=== PATIENT | female | born 1950 | race Caucasian/White ===

== ENCOUNTER → 2016-08-28 | Outpatient (CLI) | payer MEDICARE, MEDICAID ==
[~2016-08-28] MED LIST: LISI40TA PO; OMEP20TA7 PO; SERT100T8 PO; TRAM-42 PO
--- NOTE | 2016-08-30 20:26 | Diagnostic Imaging Report ---
Bilateral screening mammogram. The current study was also evaluated with a Computer Aided Detection (CAD) system. INDICATION: Screening. No current complaints stated on the questionnaire. COMPARISON: 07/25/15. FINDINGS: The breasts are composed of scattered fibroglandular densities. There are occasional benign-appearing calcifications. Allowing for technique and positional differences, no suspicious change is seen. IMPRESSION: No significant change. ACR BI-RADS Category 2: Benign findings. Result letter will be mailed to the patient. Note: At least 10% of breast cancer is not imaged by mammography. Dictated by: Dictated on workstation # [id number]
== END ==
LOC: RAD 14:38
PROVIDERS: ATTEND Nurse Practitioner Community Health
DX: Z12.31 Encounter for screening mammogram for malignant neoplasm of breast (principal)
CPT/HCPCS: 77067

== ENCOUNTER 2016-11-22 09:47 | Outpatient (CLI) | payer MEDICARE, MEDICAID ==
[~2016-11-22] VITALS: Ht 170.2 cm; Wt 98.9 kg
[2016-11-22] MEDS ORDERED: METF500T4 PO (12:18)
[2016-11-22] MEDS ORDERED: PIOG30TA38 PO (12:25)
[2016-11-28] MEDS ORDERED: NITR-65 PO (12:22)
[2016-11-28] MEDS ORDERED: TAMS0.4C98 PO (12:22)
[2016-11-28] MEDS ORDERED: HYDR-3876 PO (12:22)
== END 2016-11-22 12:41 ==
LOC: PREOP 09:47
PROVIDERS: ATTEND Internal Medicine
DX: Z01.818 Encounter for other preprocedural examination (principal); Z86.010 Personal history of colon polyps

== ENCOUNTER 2016-11-23 08:41 | Day surgery (SDC) | payer MEDICARE, MEDICAID ==
[~2016-11-23] VITALS: Ht 170.2 cm; Wt 98.9 kg
[~2016-11-23 08:41] MED LIST changes: +METF500T4 PO; +PIOG30TA38 PO
[2016-11-23] MEDS ORDERED: 1/2 NS IV SOLUTION 1,000 ML IV STA (08:49)
[2016-11-23] MEDS ORDERED: LIDOCAINE JELLY 2% (XYLOCAINE) 5 ML TUBE MM PRN (09:00)
[2016-11-23 09:06] VITALS: BP 118/73
--- NOTE | 2016-11-23 09:57 | Pre-Op Note & Conscious Sedat ---
Pre-Operative Progress Note H&P Reviewed The H&P was reviewed, patient examined and no changes noted. Date H&P Reviewed: Nov 23, 2016 Time H&P Reviewed: 09:57 Conscious Sedation Pre-Proced ASA Class: 2 Airway Mallampati Classification: ([place] appropriate class) I. II. III, IV Lungs Heart ASA score ASA 1: a normal healthy patient ASA 2: a patient with a mild systemic disease (mid diabetes, controlled hypertension, obesity ASA 3: a patient with a severe systemic disease that limits activity (angina , COPD, prior Myocardial infarction) ASA 4: a patient with an incapacitating disease that is a constant threat to life (CHF, renal failure) ASA 5: a moribund patient not expected to survive 24 hrs. (ruptured aneurysm) ASA 6: a declared brain patient whose organs are being harvested. For emergent operations, add the letter E after the classification Grade 2 Sedation Plan: Analgesia, Amnesia, Plan communicated to team members, Discussed options with patient/fam, Discussed risks with patient/fam Note The patient is an appropriate candidate to undergo the planned procedure, sedation, and anesthesia. The patient immediately re-assessed prior to indication. RUSS MENON MD Nov 23, 2016 09:57
[2016-11-23] MEDS ORDERED: MIDAZOLAM 2 MG/2 ML (VERSED) VIAL ONE ×3 (10:16→11:23)
[2016-11-23] MEDS ORDERED: fentaNYL INJECTION 100 MCG/2 ML AMP ONE (10:16)
[2016-11-23] MEDS ORDERED: LIDOCAINE JELLY 2% (XYLOCAINE) 5 ML TUBE ONE (10:17)
[2016-11-23] MEDS: fentaNYL INJECTION 100 MCG/2 ML AMP IVP PRN ×2 (11:05→11:10)
[2016-11-23] MEDS: MIDAZOLAM 2 MG/2 ML (VERSED) VIAL IVP PRN ×3 (11:07→11:25)
[2016-11-23 11:55] VITALS: BP 122/79
[2016-11-23 12:30] VITALS: BP 108/77
[2016-11-23 14:54] VITALS: BP 108/77
[2016-11-24] MEDS ORDERED: HYDR-87 PO (10:13)
[2016-11-24] MEDS ORDERED: TAMS0.4C98 PO (10:13)
[2016-11-24] MEDS ORDERED: ONDA4TAB8 PO (10:13)
[2016-11-24] MEDS ORDERED: NITR-65 PO (10:13)
[2016-11-24] MEDS ORDERED: CIPR-225 PO (10:19)
--- NOTE | 2016-11-24 23:36 | PROCEDURE REPORT ---
PROCEDURE PHYSICIAN: RUSS MENON DATE OF PROCEDURE: 11/23/2016 INDICATION FOR THE PROCEDURE: Diagnostic colonoscopy follow-up of a villous adenoma removal one year ago from the rectosigmoid junction. The patient was placed in left lateral decubitus position. Prior to undergoing colonoscopy, digital rectal evaluation was performed. Anal sphincter tone was normal. The perianal reflex was intact. No abnormalities were noted to digital inspection of the anal canal or distal rectal vault. The colonoscope was then inserted into the rectum and under direct visualization, advanced to cecum. The cecum was identified by identification the ileocecal valve and cecal strap. Photographic documentation was obtained. Careful inspection was made as the colonoscope was withdrawn. FINDINGS: There was no evidence for internal or external hemorrhoids. The rectum was unremarkable. There was no evidence for any remnant of previously cauterized villous adenoma from the rectosigmoid junction. The sigmoid colon and transverse colon were unremarkable. One diminutive polyp was removed from the mid transverse colon approximately 2 x 4 mm in size via hot forceps. There is no significant blood loss. The remainder of the transverse colon, hepatic flexure, ascending colon and cecum were unremarkable. ASSESSMENT: There is no evidence for recurrence of previously noted villous adenoma at the rectosigmoid junction. One diminutive polyp was removed from the transverse colon. This was an otherwise unremarkable colonoscopy to cecum. I would advocate increasing surveillance colonoscopy interval to 3 years. Job ID: [id number] Dictated Date: 11/23/2016 11:49:31 Director [employer] Date: 11/24/2016 23:26:16 / hal
--- OUTSIDE RECORDS SUMMARY | 2016-11-27 06:45 | XMS REPORT ---
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 Active Problem Dysthymic disorder 300.4 Active Problem Diabetes 250.00 Active Problem Other malaise and fatigue 780.79 Active Problem Polyneuropathy 356.9 Active Problem Other specified counseling V65.49 Active Problem Unspecified disorder of skin and subcutaneous tissue 709.9 Active Problem Routine gynecological examination V72.31 Active Problem Special screening for malignant neoplasms, colon V76.51 Active Problem Unspecified breast screening V76.10 Active Problem Other abnormal glucose 790.29 Active Problem Lumbago 724.2 Active Problem Unspecified hearing loss 389.9 Active Problem Spasm of muscle 728.85 Active Problem Blood in stool 578.1 Active Medications Medication Code System Code Instructions Start Date End Date Status Dosage tramadol NDC 0 50 mg Apr 23, 2014 take 1 tablet by Oral route every 8 hours as needed PRN pain Results No Known Results Summary Purpose eClinicalWorks Submission
--- OUTSIDE RECORDS SUMMARY | 2016-11-27 06:45 | XMS REPORT | Continuity of Care Document ---
Author Author [facility] Organization [facility] Address Unknown Phone Unavailable Care Team Providers Care Construction Carpenters Helper Name Role Phone Arturo Deleon PCP [phone] Source Comments Some departments are not documenting in the electronic medical record. If you do not see the information that you expected, contact Release of Information in the Health Information Management department at [phone] for further assistance in locating additional records.[facility] Active Allergies and Adverse Reactions Not on File Current Medications Not on file Active Problems Not on file Social History Tobacco Use Types Packs/Day Years Used Date Never Assessed Plan of Care Health Maintenance Due Date Last Done Comments Hepatitis C Screening 1950 Physical (Comprehensive) 08/17/1959 Exam Pertussis Vaccine 08/17/1963 Tetanus Vaccine 1969 Cervical Cancer Screening 1973 Breast Cancer Screening 1992 Colorectal Cancer 2002 Screening Shingles Vaccine 2012 Influenza Vaccine 01/18/2017 Results from Last 3 Months Not on file
--- OUTSIDE RECORDS SUMMARY | 2016-11-27 06:45 | XMS REPORT ---
Author Author CAMACHO GONZALEZ [facility] Address [address] [place] [address] Care Team Providers Care Cop Name Role Phone CAMACHO GONZALEZ Unavailable PROBLEMS Type Condition ICD9-CM Code UAZ20-NF Code Onset Dates Condition Status SNOMED Code Problem Unspecified nonsenile cataract 366.00 Active 011335358 Problem Unspecified hearing loss 389.9 Active 17171175 Problem Other specified diabetes mellitus without complications E13.9 Active 420768702 Problem Hypertension I10 Active 64155140 Problem Breast cancer screening Z12.39 Active 485524178 Problem Low back pain M54.5 Active 872032969 Problem Type 2 diabetes mellitus with complication E11.8 Active 95533208 Problem Dysthymia F34.1 Active 42855721 ALLERGIES Unknown Allergies SOCIAL HISTORY No smoking Hx information available PLAN OF CARE VITAL SIGNS MEDICATIONS Medication Instructions Dosage Frequency Start Date End Date Duration Status Simvastatin 20 mg Orally Once a day 1 tablet in the evening 24h Jun, 30 day(s) Active RESULTS No Results PROCEDURES No Known procedures IMMUNIZATIONS No Known Immunizations
--- OUTSIDE RECORDS SUMMARY | 2016-11-27 06:45 | XMS REPORT ---
Author Author FRACISCO SHAH [facility] eClinicalWorks Address Unknown Phone Unavailable Care Team Providers Care Records Management Clerk Name Role Phone FRACISCO SHAH CP Unavailable Allergies No Known Allergies Problems Problem Type Condition Code Onset Dates Condition Status Problem Dysthymia F34.1 Active Problem Breast cancer screening Z12.39 Active Problem Type 2 diabetes mellitus with complication E11.8 Active Problem Unspecified hearing loss 389.9 Active Assessment Abnormal RBC R71.8 Active Problem Low back pain M54.5 Active Problem Unspecified nonsenile cataract 366.00 Active Medications No Known Medications Results No Known Results Summary Purpose eClinicalWorks Submission
--- OUTSIDE RECORDS SUMMARY | 2016-11-27 06:45 | XMS REPORT ---
Author Author CAMACHO GONZALEZ [facility] e[employer] Address Unknown Phone Unavailable Care Team Providers Care Tube Cutter Name Role Phone CAMACHO GONZALEZ Unavailable Allergies, Adverse Reactions, Alerts Substance Reaction Event Type Gabapentin Info Not Available Drug Allergy Problems Problem Type Condition Code Onset Dates Condition Status Assessment Iron deficiency E61.1 Active Problem Unspecified hearing loss 389.9 Active Assessment Other specified diabetes mellitus without complications E13.9 Active Assessment Hyperlipidemia, unspecified hyperlipidemia type E78.5 Active Assessment Other chronic pain G89.29 Active Problem Hypertension I10 Active Problem Type 2 diabetes mellitus with complication E11.8 Active Problem Other specified diabetes mellitus without complications E13.9 Active Problem Low back pain M54.5 Active Problem Unspecified nonsenile cataract 366.00 Active Problem Dysthymia F34.1 Active Problem Breast cancer screening Z12.39 Active Medications Medication Code System Code Instructions Start Date End Date Status Dosage tramadol NDC 0 50 mg by oral route 3 times a day Apr 23, 2014 1 tablet Cyclobenzaprine HCl [facility] 77873530952 10MG TAKE ONE TABLET BY MOUTH TWICE DAILY NEEDED FOR MUSCLE SPASM Omeprazole [facility] [address]-00 20 MG Orally 2 times a day December 09, 2014 1 capsule Sertraline HCl [facility] 55741456076 100MG TAKE ONE TABLET BY MOUTH ONCE DAILY Lisinopril [facility] [address]-89 40 mg Orally Once a day September 19, 2015 1 [place] [address]-82 500 MG Orally Once a dayX 5 days then 1 bid X 5 days then 2 in PM and 1 in AM X 5 days and final dose is 2tabs bid Jan 31, 2016 1 tablet with evening meal Procedures Procedure Coding System Code Date LAB NOT BILLED BY [facility] CPT-4 NOBLL Jan 31, 2016 [facility] VISIT ESTABLISHED PATIENT CPT-4 G0467 Jan 31, 2016 GLYCATED HEMOGLOBIN TEST CPT-4 46218 Jan 31, 2016 VENIPUNCT, ROUTINE* CPT-4 45828 Jan 31, 2016 Office Visit, Est Pt., Level 3 CPT-4 88605 Jan 31, 2016 Vital Signs Date/Time: Jan 31, 2016 Cardiac Monitoring Heart Rate 78 bpm Weight 220 lbs Height 67 in BMI 34.45 Index Blood Pressure Diastolic 74 mmHg Blood Pressure Systolic 122 mmHg Results Name Result Date Reference Range Unit Abnormality Flag CBC ----Lymphs 23 16810271 % ----Neutrophils 68 21580641 % ----Baso (Absolute) 0.0 [id number] 0.0-0.2 x10E3/uL ----Hemoglobin 14.3 52427881 11.1-15.9 g/dL ----Eos (Absolute) 0.2 20548506 0.0-0.4 x10E3/uL ----Hematocrit 41.0 64929988 34.0-46.6 % ----Monocytes(Absolute) 0.5 45534441 0.1-0.9 x10E3/uL ----MCV 80 15938262 79-97 fL ----Lymphs (Absolute) 1.7 33957175 0.7-3.1 x10E3/uL ----MCH 28.0 74516696 26.6-33.0 pg ----Neutrophils (Absolute) 5.1 34042294 1.4-7.0 x10E3/uL ----MCHC 34.9 95880877 31.5-35.7 g/dL ----Immature Granulocytes 0 83278768 % ----Basos 1 44467496 % ----RDW 14.7 54661598 12.3-15.4 % ----Immature Grans (Abs) 0.0 56365807 0.0-0.1 x10E3/uL ----WBC 7.5 36487204 3.4-10.8 x10E3/uL ----Platelets 199 22229549 150-379 x10E3/uL ----Eos 2 85491486 % ----RBC 5.11 72529960 3.77-5.28 x10E6/uL ----Monocytes 6 86165945 % LIPID PANEL ----LDL Cholesterol Calc 124 52889754 0-99 mg/dL H ----VLDL Cholesterol Kade 49 20160131 5-40 mg/dL H ----Cholesterol, Total 216 20160131 100-199 mg/dL H ----HDL Cholesterol 43 20160131 >39 mg/dL ----Triglycerides 245 20160131 0-149 mg/dL H A1C (IN HOUSE) ----A1C IN HOUSE 6.7 20160131 4.3 - 5.6 % ----Previous A1c 5.7 20160131 ----Lot [id number] ----Exp date 20160131 ROUTINE VENIPUNCTURE Summary Purpose eClinicalWorks Submission
--- OUTSIDE RECORDS SUMMARY | 2016-11-27 06:45 | XMS REPORT ---
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
--- OUTSIDE RECORDS SUMMARY | 2016-11-27 06:45 | XMS REPORT ---
Author Author FRACISCO SHAH [facility] eClinicalWorks Address Unknown Phone Unavailable Care Team Providers Care Water Taxi Boat Mate Name Role Phone FRACISCO SHAH CP Unavailable Allergies, Adverse Reactions, Alerts Substance Reaction Event Type Gabapentin Info Not Available Drug Allergy Problems Problem Type Condition Code Onset Dates Condition Status Problem Dysthymia F34.1 Active Problem Breast cancer screening Z12.39 Active Problem Type 2 diabetes mellitus with complication E11.8 Active Problem Unspecified hearing loss 389.9 Active Assessment Dizziness R42 Active Problem Low back pain M54.5 Active Problem Unspecified nonsenile cataract 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 Active Medications Medication Code System Code Instructions Start Date End Date Status Dosage tramadol NDC 0 50 mg by oral route 3 times a day Apr 23, 2014 1 tablet Omeprazole [facility] [address]-71 20 MG Orally 2 times a day December 09, 2014 1 capsule Lisinopril ND 35839124886 20MG TAKE ONE TABLET BY MOUTH ONCE DAILY Sertraline HCl [facility] 54325673145 100MG TAKE ONE TABLET BY MOUTH ONCE DAILY Cyclobenzaprine HCl [facility] 89183315010 10MG TAKE ONE TABLET BY MOUTH TWICE DAILY NEEDED FOR MUSCLE SPASM Procedures Procedure Coding System Code Date [facility]-4 NOBLL September 09, 2015 VENIPUNCT, ROUTINE* CPT-4 49645 September 09, 2015 MEASURE BLOOD OXYGEN LEVEL CPT-4 05424 September 09, 2015 Office Visit, Est Pt., Level 3 CPT-4 09311 September 09, 2015 [facility] VISIT ESTABLISHED PATIENT CPT-4 G0467 September 09, 2015 Vital Signs Date/Time: September 09, 2015 Temperature 98.1 F Weight 217.3 lbs Height 67 in Oximetry 98 % Blood Pressure Diastolic 82 mmHg Blood Pressure Systolic 144 mmHg Cardiac Monitoring Heart Rate 80 bpm BMI 34.03 Index Results No Known Results Summary Purpose eClinicalWorks Submission
--- OUTSIDE RECORDS SUMMARY | 2016-11-27 06:45 | XMS REPORT ---
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 C[facility] NOBLL September 15, 2015 Results No Known Results Summary Purpose eClinicalWorks Submission
--- OUTSIDE RECORDS SUMMARY | 2016-11-27 06:45 | XMS REPORT ---
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
--- OUTSIDE RECORDS SUMMARY | 2016-11-27 06:45 | XMS REPORT ---
Author Author CAMACHO GONZALEZ [facility] eClinicalWorks Address Unknown Phone Unavailable Care Team Providers Care Astrophysics Teacher Name Role Phone CAMACHO GONZALEZ CP Unavailable Allergies, Adverse Reactions, Alerts Substance [...] screening for malignant neoplasms, colon V76.51 Active Assessment Gastroesophageal reflux disease, esophagitis presence not specified K21.9 Active Assessment AF (amaurosis fugax) G45.3 Active Problem Unspecified breast screening V76.10 Active Problem Other abnormal glucose 790.29 Active Problem Lumbago 724.2 Active Problem Unspecified hearing loss 389.9 Active Problem Spasm of muscle 728.85 Active Problem Blood in stool 578.1 Active Medications Medication Code System Code Instructions Start Date End Date Status Dosage Lisinopril [facility] 50102002037 20MG TAKE ONE TABLET BY MOUTH ONCE DAILY tramadol NDC 0 50 mg Apr 23, 2014 take 1 tablet by Oral route every 8 hours as needed PRN pain Omeprazole [facility] [address]-09 20 MG Orally 2 times a day December 09, 2014 1 capsule Sertraline HCl [facility] 31775113806 100MG TAKE ONE TABLET BY MOUTH ONCE DAILY Cyclobenzaprine HCl [facility] [address]-74 10 MG Orally 2 times a day 1 tablet as needed for muscle spasms Procedures Procedure Coding System Code Date Office Visit, Est Pt., Level 3 CPT-4 17219 Mar 28, 2015 [facility] VISIT ESTABLISHED PATIENT CPT-4 G0467 Mar 28, 2015 Vital Signs Date/Time: Mar 28, 2015 Temperature 97.8 F Weight 220 lbs Height 67 in BMI 34.45 Index Blood Pressure Diastolic 82 mmHg Blood Pressure Systolic 132 mmHg Cardiac Monitoring Heart Rate 80 bpm Results Name Result Date Reference Range Unit Abnormality Flag Carotid Ultrasound Summary Purpose eClinicalWorks Submission
--- OUTSIDE RECORDS SUMMARY | 2016-11-27 06:45 | XMS REPORT ---
Author Author CAMACHO GONZALEZ [facility] eClinicalWorks Address Unknown Phone Unavailable Care Team Providers Care Undercoat Sprayer Name Role Phone CAMACHO GONZALEZ CP Unavailable Allergies, Adverse Reactions, Alerts Substance Reaction Event Type Gabapentin Info Not Available Drug Allergy Problems Problem Type Condition Code Onset Dates Condition Status Assessment Breast cancer screening Z12.39 Active Assessment Other chronic pain G89.29 Active Problem Dysthymia F34.1 Active Problem Breast cancer screening Z12.39 Active Problem Type 2 diabetes mellitus with complication E11.8 Active Problem Unspecified hearing loss 389.9 Active Assessment Type 2 diabetes mellitus with complication E11.8 Active Problem Low back pain M54.5 Active Problem Unspecified nonsenile cataract 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 Active Medications Medication Code System Code Instructions Start Date End Date Status Dosage Lisinopril [facility] [id number] 20MG TAKE ONE TABLET BY MOUTH ONCE DAILY Sertraline HCl ND 44070720250 100MG TAKE ONE TABLET BY MOUTH ONCE DAILY Cyclobenzaprine HCl [facility] [address]-42 10 MG Orally 2 times a day 1 tablet as needed for muscle spasms tramadol NDC 0 50 mg Apr 23, 2014 take 1 tablet by Oral route every 8 hours as [place] [address]-63 20 MG Orally 2 times a day December 09, 2014 1 capsule Procedures Procedure Coding System Code Date MICROALBUMIN, SEMIQUANT CPT-4 49726 Jun 30, 2015 [facility] CPT-4 NOBLL Jun 30, 2015 GLYCATED HEMOGLOBIN TEST CPT-4 48202 Jun 30, 2015 Office Visit, Est Pt., Level 3 CPT-4 20239 Jun 30, 2015 [facility] VISIT ESTABLISHED PATIENT CPT-4 G0467 Jun 30, 2015 VENIPUNCT, ROUTINE* CPT-4 27410 Jun 30, 2015 Vital Signs Date/Time: Jun 30, 2015 Temperature 98.4 F Weight 221.6 lbs Height 67 in BMI 34.70 Index Blood Pressure Diastolic 80 mmHg Blood Pressure Systolic 142 mmHg Cardiac Monitoring Heart Rate 76 bpm Results Name Result Date Reference Range Unit Abnormality Flag ROUTINE VENIPUNCTURE A1C (IN HOUSE) ----A1C IN HOUSE 5.7 [id number] 4.3 - 5.6 % ----Previous A1c 5.7 [id number] ----Lot [id number] ----Exp date [id number] MICROALBUMIN, URINE (IN HOUSE) ----Lot # [id number] ----CRE 200 [id number] ----Exp date [id number] ----ALB 80 [id number] ----Control + [id number] ----Control - [id number] ----A:C (IN HOUSE) 30-300 [id number] ----Clarity Clear [id number] ----Color Yellow [id number] ----Lot # [id number] ----Exp date [id number] ----MICROALBUMIN Abnormal [id number] Summary Purpose eClinicalWorks Submission
--- OUTSIDE RECORDS SUMMARY | 2016-11-27 06:46 | XMS REPORT ---
Author Author CAMACHO GONZALEZ Organization eClinicalWorks Address Unknown Phone Unavailable Care Team Providers Care Accountant Tax Name Role Phone CAMACHO GONZALEZ CP Unavailable Allergies No Known Allergies Problems Problem Type Condition Code Onset Dates Condition Status Problem Dysthymia F34.1 Active Problem Breast cancer screening Z12.39 Active Problem Type 2 diabetes mellitus with complication E11.8 Active Problem Unspecified hearing loss 389.9 Active Problem Low back pain M54.5 Active Problem Unspecified nonsenile cataract 366.00 Active Medications No Known Medications Results No Known Results Summary Purpose eClinicalWorks Submission
--- OUTSIDE RECORDS SUMMARY | 2016-11-27 06:46 | XMS REPORT ---
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
--- OUTSIDE RECORDS SUMMARY | 2016-11-27 06:46 | XMS REPORT | Continuity of Care Document ---
Author Author [facility] Address Unknown Phone Unavailable Allergies Active Description Code Type Severity Reaction Onset Reported/Identified Relationship to Patient Clinical Status Yes gabapentin Drug Allergy 10/09/2010 Yes gabapentin Drug Allergy N/A N/A 10/09/2010 Yes No Known Drug Allergies [id number] Drug Allergy Unknown N/ A 09/30/2015 Medications Problems Date Dx Coded Attending Type Code Diagnosis Diagnosed By 12/20/2007 401.9 Unspecified Essential Hypertension 12/20/2007 CARLOS HICKMAN CAMACHO S 401.9 Unspecified Essential Hypertension 12/20/2007 401.9 Unspecified Essential Hypertension 12/20/2007 401.9 Unspecified Essential Hypertension 12/20/2007 CARLOS BORING MACHINE OPERATOR HORIZONTAL, CAMACHO S 401.9 Unspecified Essential Hypertension 12/20/2007 TOBY GONZALEZ APRNNDA S 401.9 Unspecified Essential Hypertension 12/20/2007 TOBY GONZALEZ APRNNDA S 401.9 Unspecified Essential Hypertension 12/20/2007 SHAYLA BORING MACHINE OPERATOR HORIZONTAL, WOODROW A 401.9 Unspecified Essential Hypertension 12/20/2007 CARLOS BORING MACHINE OPERATOR HORIZONTAL, CAMACHO S 401.9 Unspecified Essential Hypertension 12/20/2007 SHAYLA BORING MACHINE OPERATOR HORIZONTAL, WOODROW A 401.9 Unspecified Essential Hypertension 12/20/2007 CARLOS BORING MACHINE OPERATOR HORIZONTALTOBY HernándezNDA S 401.9 Unspecified Essential Hypertension 12/20/2007 CARLOS BORING MACHINE OPERATOR HORIZONTAL, CAMACHO S 401.9 Unspecified Essential Hypertension 12/20/2007 TOBY GONZALEZ APRNNDA S 401.9 Unspecified Essential Hypertension 12/20/2007 CARLOS HICKMAN CAMACHO S 401.9 Unspecified Essential Hypertension 12/26/2007 272.4 HYPERLIPIDEMIA UNSPECIFIED 12/26/2007 401.1 HYPERTENSION, BENIGN ESSENTIAL 12/26/2007 TOBY GONZALEZ APRNNDA S 272.4 HYPERLIPIDEMIA UNSPECIFIED 12/26/2007 TOBY GONZALEZ APRNNDA S 401.1 HYPERTENSION, BENIGN ESSENTIAL 12/26/2007 272.4 HYPERLIPIDEMIA UNSPECIFIED 12/26/2007 401.1 HYPERTENSION, BENIGN ESSENTIAL 12/26/2007 272.4 HYPERLIPIDEMIA UNSPECIFIED 12/26/2007 401.1 HYPERTENSION, BENIGN ESSENTIAL 12/26/2007 CARLOS BORING MACHINE OPERATOR HORIZONTAL, CAMACHO S 272.4 HYPERLIPIDEMIA UNSPECIFIED 12/26/2007 CARLOS BORING MACHINE OPERATOR HORIZONTAL, CAMACHO S 401.1 HYPERTENSION, BENIGN ESSENTIAL 12/26/2007 CARLOS BORING MACHINE OPERATOR HORIZONTAL, CAMACHO S 272.4 HYPERLIPIDEMIA UNSPECIFIED 12/26/2007 CARLOS BORING MACHINE OPERATOR HORIZONTAL, CAMACHO S 401.1 HYPERTENSION, BENIGN ESSENTIAL 12/26/2007 CARLOS BORING MACHINE OPERATOR HORIZONTAL, CAMACHO S 272.4 HYPERLIPIDEMIA UNSPECIFIED 12/26/2007 CARLOS BORING MACHINE OPERATOR HORIZONTAL, CAMACHO S 401.1 HYPERTENSION, BENIGN ESSENTIAL 12/26/2007 SHAYLA BORING MACHINE OPERATOR HORIZONTAL, WOODROW A 272.4 HYPERLIPIDEMIA UNSPECIFIED 12/26/2007 SHAYLA BORING MACHINE OPERATOR HORIZONTAL, WOODROW A 401.1 HYPERTENSION, BENIGN ESSENTIAL 12/26/2007 CARLOS BORING MACHINE OPERATOR HORIZONTAL, CAMACHO S 272.4 HYPERLIPIDEMIA UNSPECIFIED 12/26/2007 CARLOS BORING MACHINE OPERATOR HORIZONTAL, CAMACHO S 401.1 HYPERTENSION, BENIGN ESSENTIAL 12/26/2007 SHAYLA BORING MACHINE OPERATOR HORIZONTAL, WOODROW A 272.4 HYPERLIPIDEMIA UNSPECIFIED 12/26/2007 SHAYLA BORING MACHINE OPERATOR HORIZONTAL, WOODROW A 401.1 HYPERTENSION, BENIGN ESSENTIAL 12/26/2007 CARLOS BORING MACHINE OPERATOR HORIZONTAL, CAMACHO S 272.4 HYPERLIPIDEMIA UNSPECIFIED 12/26/2007 CARLOS BORING MACHINE OPERATOR HORIZONTAL, CAMACHO S 401.1 HYPERTENSION, BENIGN ESSENTIAL 12/26/2007 CARLOS BORING MACHINE OPERATOR HORIZONTAL, CAMACHO S 272.4 HYPERLIPIDEMIA UNSPECIFIED 12/26/2007 CARLOS BORING MACHINE OPERATOR HORIZONTAL, CAMACHO S 401.1 HYPERTENSION, BENIGN ESSENTIAL 12/26/2007 CARLOS BORING MACHINE OPERATOR HORIZONTAL, CAMACHO S 272.4 HYPERLIPIDEMIA UNSPECIFIED 12/26/2007 CARLOS BORING MACHINE OPERATOR HORIZONTAL, CAMACHO S 401.1 HYPERTENSION, BENIGN ESSENTIAL 12/26/2007 CARLOS BORING MACHINE OPERATOR HORIZONTAL, CAMACHO S 272.4 HYPERLIPIDEMIA UNSPECIFIED 12/26/2007 CARLOS BORING MACHINE OPERATOR HORIZONTAL, CAMACHO S 401.1 HYPERTENSION, BENIGN ESSENTIAL 01/09/2008 719.47 Pain In Joint Involving Ankle And Foot 01/09/2008 V72.31 Routine Gynecological Examination 01/09/2008 MICA GONZLAEZ APRNA S 719.47 Pain In Joint Involving Ankle And Foot 01/09/2008 MICA GONZALEZ APRNA S V72.31 Routine Gynecological Examination 01/09/2008 719.47 Pain In Joint Involving Ankle And Foot 01/09/2008 V72.31 Routine Gynecological Examination 01/09/2008 719.47 Pain In Joint Involving Ankle And Foot 01/09/2008 V72.31 Routine Gynecological Examination 01/09/2008 MICA GONZALEZ APRNA S 719.47 Pain In Joint Involving Ankle And Foot 01/09/2008 MICA GONZALEZ APRNA S V72.31 Routine Gynecological Examination 01/09/2008 MICA GONZALEZ APRNA S 719.47 Pain In Joint Involving Ankle And Foot 01/09/2008 MICA GONZALEZ APRNA S V72.31 Routine Gynecological Examination 01/09/2008 MICA GONZALEZ APRNA S 719.47 Pain In Joint Involving Ankle And Foot 01/09/2008 MICA GONZALEZ APRNA S V72.31 Routine Gynecological Examination 01/09/2008 JORJE MCGUIRE APRNIDI A 719.47 Pain In Joint Involving Ankle And Foot 01/09/2008 JORJE MCGUIRE APRNIDI A V72.31 Routine Gynecological Examination 01/09/2008 MICA GONZALEZ APRNA S 719.47 Pain In Joint Involving Ankle And Foot 01/09/2008 MICA GONZALEZ APRNA S V72.31 Routine Gynecological Examination 01/09/2008 JORJE MCGUIRE APRNIDI A 719.47 Pain In Joint Involving Ankle And Foot 01/09/2008 SHAYLA HICKMAN WOODROW A V72.31 Routine Gynecological Examination 01/09/2008 MICA GONZALEZ APRNA S 719.47 Pain In Joint Involving Ankle And Foot 01/09/2008 MICA GONZALEZ APRNA S V72.31 Routine Gynecological Examination 01/09/2008 MICA GONZALEZ APRNA S 719.47 Pain In Joint Involving Ankle And Foot 01/09/2008 MICA GONZALEZ APRNA S V72.31 Routine Gynecological Examination 01/09/2008 CARLOS BORING MACHINE OPERATOR HORIZONTAL, CAMACHO S 719.47 Pain In Joint Involving Ankle And Foot 01/09/2008 CARLOS HICKMAN, CAMACHO S V72.31 Routine Gynecological Examination 01/09/2008 CARLOS HICKMAN, CAMACHO S 719.47 Pain In Joint Involving Ankle And Foot 01/09/2008 CARLOS HICKMAN, CAMACHO S V72.31 Routine Gynecological Examination 05/17/2008 599.7 HEMATURIA 05/17/2008 789.00 Abdominal Pain Unspecified Site 05/17/2008 CARLOS HICKMAN, CAMACHO S 599.7 HEMATURIA 05/17/2008 CARLOS ANDERSONN, CAMACHO S 789.00 Abdominal Pain Unspecified Site 05/17/2008 599.7 HEMATURIA 05/17/2008 789.00 Abdominal Pain Unspecified Site 05/17/2008 599.7 HEMATURIA 05/17/2008 789.00 Abdominal Pain Unspecified Site 05/17/2008 CARLOS HICKMAN, CAMACHO S 599.7 HEMATURIA 05/17/2008 CARLOS HICKMAN, CAMACHO S 789.00 Abdominal Pain Unspecified Site 05/17/2008 CARLOS HICKMAN, CAMACHO S 599.7 HEMATURIA 05/17/2008 CARLOS HICKMAN, CAMACHO S 789.00 Abdominal Pain Unspecified Site 05/17/2008 CARLOS HICKMAN, CAMACHO S 599.7 HEMATURIA 05/17/2008 CARLOS HICKMAN, CAMACHO S 789.00 Abdominal Pain Unspecified Site 05/17/2008 SHAYLA BORING MACHINE OPERATOR HORIZONTAL, WOODROW A 599.7 HEMATURIA 05/17/2008 SHAYLA BORING MACHINE OPERATOR HORIZONTAL, WOODROW A 789.00 Abdominal Pain Unspecified Site 05/17/2008 CARLOS HICKMAN, CAMACHO S 599.7 HEMATURIA 05/17/2008 CARLOS BORING MACHINE OPERATOR HORIZONTAL, CAMACHO S 789.00 Abdominal Pain Unspecified Site 05/17/2008 SHAYLA BORING MACHINE OPERATOR HORIZONTAL, WOODROW A 599.7 HEMATURIA 05/17/2008 SHAYLA BORING MACHINE OPERATOR HORIZONTAL, WOODROW A 789.00 Abdominal Pain Unspecified Site 05/17/2008 CARLOS HICKMAN, CAMACHO S 599.7 HEMATURIA 05/17/2008 CARLOS ANDERSONN, CAMACHO S 789.00 Abdominal Pain Unspecified Site 05/17/2008 CARLOS BORING MACHINE OPERATOR HORIZONTAL, CAMACHO S 599.7 HEMATURIA 05/17/2008 CARLOS BORING MACHINE OPERATOR HORIZONTAL, CAMACHO S 789.00 Abdominal Pain Unspecified Site 05/17/2008 CARLOS BORING MACHINE OPERATOR HORIZONTAL, CAMACHO S 599.7 HEMATURIA 05/17/2008 CARLOS BORING MACHINE OPERATOR HORIZONTAL, CAMACHO S 789.00 Abdominal Pain Unspecified Site 05/17/2008 CARLOS BORING MACHINE OPERATOR HORIZONTAL, CAMACHO S 599.7 HEMATURIA 05/17/2008 CARLOS BORING MACHINE OPERATOR HORIZONTAL, CAMACHO S 789.00 Abdominal Pain Unspecified Site 08/30/2009 477.9 Allergic Rhinitis, Cause Unspecified 08/30/2009 CARLOS BORING MACHINE OPERATOR HORIZONTAL, CAMACHO S 477.9 Allergic Rhinitis, Cause Unspecified 08/30/2009 477.9 Allergic Rhinitis, Cause Unspecified 08/30/2009 477.9 Allergic Rhinitis, Cause Unspecified 08/30/2009 CARLOS BORING MACHINE OPERATOR HORIZONTAL, CAMACHO S 477.9 Allergic Rhinitis, Cause Unspecified 08/30/2009 CARLOS BORING MACHINE OPERATOR HORIZONTAL, CAMACHO S 477.9 Allergic Rhinitis, Cause Unspecified 08/30/2009 CARLOS BORING MACHINE OPERATOR HORIZONTAL, CAMACHO S 477.9 Allergic Rhinitis, Cause Unspecified 08/30/2009 SHAYLA BORING MACHINE OPERATOR HORIZONTAL, WOODROW A 477.9 Allergic Rhinitis, Cause Unspecified 08/30/2009 CARLOS BORING MACHINE OPERATOR HORIZONTAL, CAMACHO S 477.9 Allergic Rhinitis, Cause Unspecified 08/30/2009 SHAYLA BORING MACHINE OPERATOR HORIZONTAL, WOODROW A 477.9 Allergic Rhinitis, Cause Unspecified 08/30/2009 CARLOS BORING MACHINE OPERATOR HORIZONTAL, CAMACHO S 477.9 Allergic Rhinitis, Cause Unspecified 08/30/2009 CARLOS BORING MACHINE OPERATOR HORIZONTAL, CAMACHO S 477.9 Allergic Rhinitis, Cause Unspecified 08/30/2009 CARLOS BORING MACHINE OPERATOR HORIZONTAL, CAMACHO S 477.9 Allergic Rhinitis, Cause Unspecified 08/30/2009 CARLOS BORING MACHINE OPERATOR HORIZONTAL, CAMACHO S 477.9 Allergic Rhinitis, Cause Unspecified 01/19/2010 356.9 POLYNEUROPATHY 01/19/2010 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 01/19/2010 CARLOS BORING MACHINE OPERATOR HORIZONTAL, CAMACHO S 356.9 POLYNEUROPATHY 01/19/2010 CARLOS BORING MACHINE OPERATOR HORIZONTAL, CAMACHO S 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 01/19/2010 356.9 POLYNEUROPATHY 01/19/2010 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 01/19/2010 356.9 POLYNEUROPATHY 01/19/2010 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 01/19/2010 CARLOS BORING MACHINE OPERATOR HORIZONTAL, CAMACHO S 356.9 POLYNEUROPATHY 01/19/2010 CARLOS BORING MACHINE OPERATOR HORIZONTAL, CAMACHO S 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 01/19/2010 CARLOS BORING MACHINE OPERATOR HORIZONTAL, CAMACHO S 356.9 POLYNEUROPATHY 01/19/2010 CARLOS BORING MACHINE OPERATOR HORIZONTAL, CAMACHO S 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 01/19/2010 CARLOS BORING MACHINE OPERATOR HORIZONTAL, CAMACHO S 356.9 POLYNEUROPATHY 01/19/2010 CARLOS BORING MACHINE OPERATOR HORIZONTAL, CAMACHO S 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 01/19/2010 SHAYLA BORING MACHINE OPERATOR HORIZONTAL, WOODROW A 356.9 POLYNEUROPATHY 01/19/2010 SHAYLA BORING MACHINE OPERATOR HORIZONTAL, WOODROW A 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 01/19/2010 CARLOS BORING MACHINE OPERATOR HORIZONTAL, CAMACHO S 356.9 POLYNEUROPATHY 01/19/2010 CARLOS BORING MACHINE OPERATOR HORIZONTAL, CAMACHO S 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 01/19/2010 SHAYLA BORING MACHINE OPERATOR HORIZONTAL, WOODROW A 356.9 POLYNEUROPATHY 01/19/2010 SHAYLA BORING MACHINE OPERATOR HORIZONTAL, WOODROW A 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 01/19/2010 CARLOS BORING MACHINE OPERATOR HORIZONTAL, CAMACHO S 356.9 POLYNEUROPATHY 01/19/2010 CARLOS BORING MACHINE OPERATOR HORIZONTAL, CAMACHO S 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 01/19/2010 CARLOS BORING MACHINE OPERATOR HORIZONTAL, CAMACHO S 356.9 POLYNEUROPATHY 01/19/2010 CARLOS BORING MACHINE OPERATOR HORIZONTAL, CAMACHO S 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 01/19/2010 CARLOS BORING MACHINE OPERATOR HORIZONTAL, CAMACHO S 356.9 POLYNEUROPATHY 01/19/2010 CARLOS BORING MACHINE OPERATOR HORIZONTAL, CAMACHO S 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 01/19/2010 CARLOS BORING MACHINE OPERATOR HORIZONTAL, CAMACHO S 356.9 POLYNEUROPATHY 01/19/2010 CARLOS BORING MACHINE OPERATOR HORIZONTAL, CAMACHO S 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 01/23/2011 599.0 URINARY TRACT INFECTION SITE NOT SPECIFIED 01/23/2011 CARLOS BORING MACHINE OPERATOR HORIZONTAL, CAMACHO S 599.0 URINARY TRACT INFECTION SITE NOT SPECIFIED 01/23/2011 599.0 URINARY TRACT INFECTION SITE NOT SPECIFIED 01/23/2011 599.0 URINARY TRACT INFECTION SITE NOT SPECIFIED 01/23/2011 CARLOS BORING MACHINE OPERATOR HORIZONTAL, CAMACHO S 599.0 URINARY TRACT INFECTION SITE NOT SPECIFIED 01/23/2011 CARLOS BORING MACHINE OPERATOR HORIZONTAL, CAMACHO S 599.0 URINARY TRACT INFECTION SITE NOT SPECIFIED 01/23/2011 CARLOS BORING MACHINE OPERATOR HORIZONTAL, CAMACHO S 599.0 URINARY TRACT INFECTION SITE NOT SPECIFIED 01/23/2011 SHAYLA BORING MACHINE OPERATOR HORIZONTAL, WOODROW A 599.0 URINARY TRACT INFECTION SITE NOT SPECIFIED 01/23/2011 CARLOS BORING MACHINE OPERATOR HORIZONTAL, CAMACHO S 599.0 URINARY TRACT INFECTION SITE NOT SPECIFIED 01/23/2011 SHAYLA BORING MACHINE OPERATOR HORIZONTAL, WOODROW A 599.0 URINARY TRACT INFECTION SITE NOT SPECIFIED 01/23/2011 CARLOS BORING MACHINE OPERATOR HORIZONTAL, CAMACHO S 599.0 URINARY TRACT INFECTION SITE NOT SPECIFIED 01/23/2011 CARLOS BORING MACHINE OPERATOR HORIZONTAL, CAMACHO S 599.0 URINARY TRACT INFECTION SITE NOT SPECIFIED 01/23/2011 CARLOS BORING MACHINE OPERATOR HORIZONTAL, CAMACHO S 599.0 URINARY TRACT INFECTION SITE NOT SPECIFIED 01/23/2011 CARLOS BORING MACHINE OPERATOR HORIZONTAL, CAMACHO S 599.0 URINARY TRACT INFECTION SITE NOT SPECIFIED 02/13/2012 724.2 BACK PAIN, LOWER 02/13/2012 728.85 MUSCLE SPASM 02/13/2012 CARLOS BORING MACHINE OPERATOR HORIZONTAL, CAMACHO S 724.2 BACK PAIN, LOWER 02/13/2012 CARLOS BORING MACHINE OPERATOR HORIZONTAL, CAMACHO S 728.85 MUSCLE SPASM 02/13/2012 724.2 BACK PAIN, LOWER 02/13/2012 728.85 MUSCLE SPASM 02/13/2012 724.2 BACK PAIN, LOWER 02/13/2012 728.85 MUSCLE SPASM 02/13/2012 CARLOS BORING MACHINE OPERATOR HORIZONTAL, CAMACHO S 724.2 BACK PAIN, LOWER 02/13/2012 CARLOS BORING MACHINE OPERATOR HORIZONTAL, CAMACHO S 728.85 MUSCLE SPASM 02/13/2012 CARLOS BORING MACHINE OPERATOR HORIZONTAL, CAMACHO S 724.2 BACK PAIN, LOWER 02/13/2012 CARLOS BORING MACHINE OPERATOR HORIZONTAL, CAMACHO S 728.85 MUSCLE SPASM 02/13/2012 CARLOS BORING MACHINE OPERATOR HORIZONTAL, CAMACHO S 724.2 BACK PAIN, LOWER 02/13/2012 CARLOS BORING MACHINE OPERATOR HORIZONTAL, CAMACHO S 728.85 MUSCLE SPASM 02/13/2012 SHAYLA BORING MACHINE OPERATOR HORIZONTAL, WOODROW A 724.2 BACK PAIN, LOWER 02/13/2012 SHAYLA BORING MACHINE OPERATOR HORIZONTAL, WOODROW A 728.85 MUSCLE SPASM 02/13/2012 CARLOS BORING MACHINE OPERATOR HORIZONTAL, CAMACHO S 724.2 BACK PAIN, LOWER 02/13/2012 CARLOS BORING MACHINE OPERATOR HORIZONTAL, CAMACHO S 728.85 MUSCLE SPASM 02/13/2012 SHAYLA BORING MACHINE OPERATOR HORIZONTAL, WOODROW A 724.2 BACK PAIN, LOWER 02/13/2012 SHAYLA BORING MACHINE OPERATOR HORIZONTAL, WOODROW A 728.85 MUSCLE SPASM 02/13/2012 CARLOS BORING MACHINE OPERATOR HORIZONTAL, CAMACHO S 724.2 BACK PAIN, LOWER 02/13/2012 CARLOS BORING MACHINE OPERATOR HORIZONTAL, CAMACHO S 728.85 MUSCLE SPASM 02/13/2012 CARLOS BORING MACHINE OPERATOR HORIZONTAL, CAMACHO S 724.2 BACK PAIN, LOWER 02/13/2012 CARLOS BORING MACHINE OPERATOR HORIZONTAL, CAMACHO S 728.85 MUSCLE SPASM 02/13/2012 CARLOS BORING MACHINE OPERATOR HORIZONTAL, CAMACHO S 724.2 BACK PAIN, LOWER 02/13/2012 CARLOS BORING MACHINE OPERATOR HORIZONTAL, CAMACHO S 728.85 MUSCLE SPASM 02/13/2012 CARLOS BORING MACHINE OPERATOR HORIZONTAL, CAAMCHO S 724.2 BACK PAIN, LOWER 02/13/2012 CARLOS BORING MACHINE OPERATOR HORIZONTAL, CAMACHO S 728.85 MUSCLE SPASM 12/03/2012 578.1 BLOOD IN STOOL 12/03/2012 578.1 BLOOD IN STOOL 12/03/2012 CARLOS BORING MACHINE OPERATOR HORIZONTAL, CAMACHO S 578.1 BLOOD IN STOOL 12/03/2012 CARLOS BORING MACHINE OPERATOR HORIZONTAL, CAMACHO S 578.1 BLOOD IN STOOL 12/03/2012 CARLOS BORING MACHINE OPERATOR HORIZONTAL CAMACHO S 578.1 BLOOD IN STOOL 12/03/2012 SHAYLA BORING MACHINE OPERATOR HORIZONTAL, WOODROW A 578.1 BLOOD IN STOOL 12/03/2012 TOBY GONZALEZ APRNNDA S 578.1 BLOOD IN STOOL 12/03/2012 SHAYLA BORING MACHINE OPERATOR HORIZONTAL, WOODROW A 578.1 BLOOD IN STOOL 12/03/2012 CARLOS ANDERSONNTOBYCAMACHO S 578.1 BLOOD IN STOOL 12/03/2012 TOBY GONZALEZ APRNNDA S 578.1 BLOOD IN STOOL 12/03/2012 TOBY GONZALEZ APRNNDA S 578.1 BLOOD IN STOOL 12/03/2012 CARLOS ANDERSONN CAMACHO S 578.1 BLOOD IN STOOL 01/23/2013 709.9 UNSPECIFIED DISORDER OF SKIN AND SUBCUTANEOUS TISSUE 01/23/2013 MICA GONZALEZ APRNA S 709.9 UNSPECIFIED DISORDER OF SKIN AND SUBCUTANEOUS TISSUE 01/23/2013 TOBY GONZALEZ APRNNDA S 709.9 UNSPECIFIED DISORDER OF SKIN AND SUBCUTANEOUS TISSUE 01/23/2013 MICA GONZALEZ APRNA S 709.9 UNSPECIFIED DISORDER OF SKIN AND SUBCUTANEOUS TISSUE 01/23/2013 SHAYLA BORING MACHINE OPERATOR HORIZONTAL, WOODROW A 709.9 UNSPECIFIED DISORDER OF SKIN AND SUBCUTANEOUS TISSUE 01/23/2013 TOBY GONZALEZ APRNNDA S 709.9 UNSPECIFIED DISORDER OF SKIN AND SUBCUTANEOUS TISSUE 01/23/2013 SHAYLA BORING MACHINE OPERATOR HORIZONTAL, WOODROW A 709.9 UNSPECIFIED DISORDER OF SKIN AND SUBCUTANEOUS TISSUE 01/23/2013 TOBY GONZALEZ APRNNDA S 709.9 UNSPECIFIED DISORDER OF SKIN AND SUBCUTANEOUS TISSUE 01/23/2013 TOBY GONZALEZ APRNNDA S 709.9 UNSPECIFIED DISORDER OF SKIN AND SUBCUTANEOUS TISSUE 01/23/2013 TOBY GONZALEZ APRNNDA S 709.9 UNSPECIFIED DISORDER OF SKIN AND SUBCUTANEOUS TISSUE 01/23/2013 TOBY GONZALEZ APRNNDA S 709.9 UNSPECIFIED DISORDER OF SKIN AND SUBCUTANEOUS TISSUE 04/09/2013 TOBY GONZALEZ APRNNDA S 389.9 HEARING LOSS UNSPEC 04/09/2013 TOBY GONZALEZ APRNNDA S 389.9 HEARING LOSS UNSPEC 04/09/2013 TOBY GONZALEZ APRNNDA S 389.9 HEARING LOSS UNSPEC 04/09/2013 SHAYLA BORING MACHINE OPERATOR HORIZONTAL, WOODROW A 389.9 HEARING LOSS UNSPEC 04/09/2013 CARLOS BORING MACHINE OPERATOR HORIZONTAL, CAMACHO S 389.9 HEARING LOSS UNSPEC 04/09/2013 SHAYLA BORING MACHINE OPERATOR HORIZONTAL, WOODROW A 389.9 HEARING LOSS UNSPEC 04/09/2013 CARLOS BORING MACHINE OPERATOR HORIZONTAL, CAMACHO S 389.9 HEARING LOSS UNSPEC 04/09/2013 CARLOS BORING MACHINE OPERATOR HORIZONTAL, CAMACHO S 389.9 HEARING LOSS UNSPEC 04/09/2013 CARLOS BORING MACHINE OPERATOR HORIZONTAL, CAMACHO S 389.9 HEARING LOSS UNSPEC 04/09/2013 CARLOS BORING MACHINE OPERATOR HORIZONTAL, CAMACHO S 389.9 HEARING LOSS UNSPEC 06/10/2013 CARLOS HICKMAN, CAMACHO S 790.29 OTHER ABNORMAL GLUCOSE 06/10/2013 CARLOS HICKMAN, CAMACHO S 790.29 OTHER ABNORMAL GLUCOSE 06/10/2013 SHAYLA BORING MACHINE OPERATOR HORIZONTAL, WOODROW A 790.29 OTHER ABNORMAL GLUCOSE 06/10/2013 CARLOS HICKMAN CAMACHO S 790.29 OTHER ABNORMAL GLUCOSE 06/10/2013 SHAYLA APRN, WOODROW A 790.29 OTHER ABNORMAL GLUCOSE 06/10/2013 CARLOS HICKMAN, CAMACHO S 790.29 OTHER ABNORMAL GLUCOSE 06/10/2013 CARLOS HICKMAN, CAMACHO S 790.29 OTHER ABNORMAL GLUCOSE 06/10/2013 CARLOS HICKMAN, CAMACHO S 790.29 OTHER ABNORMAL GLUCOSE 06/10/2013 CARLOS HICKMAN, CAMACHO S 790.29 OTHER ABNORMAL GLUCOSE 06/13/2013 TOBY GONZALEZ APRNNDA S V76.10 BREAST CANCER SCREENING 06/13/2013 TOBY GONZALEZ APRNNDA S V76.10 BREAST CANCER SCREENING 06/13/2013 SHAYLA APRN, WOODROW A V76.10 BREAST CANCER SCREENING 06/13/2013 CARLOS HICKMAN CAMACHO S V76.10 BREAST CANCER SCREENING 06/13/2013 SHAYLA BORING MACHINE OPERATOR HORIZONTAL, WOODROW A V76.10 BREAST CANCER SCREENING 06/13/2013 TOBY GONZALEZ APRNNDA S V76.10 BREAST CANCER SCREENING 06/13/2013 TOBY GONZALEZ APRNNDA S V76.10 BREAST CANCER SCREENING 06/13/2013 CARLOS BORING MACHINE OPERATOR HORIZONTAL, CAMACHO S V76.10 BREAST CANCER SCREENING 06/13/2013 CARLOS BORING MACHINE OPERATOR HORIZONTAL, CAMACHO S V76.10 BREAST CANCER SCREENING 06/17/2013 CARLOS BORING MACHINE OPERATOR HORIZONTAL, CAMACHO S 250.00 DIABETES MELLITUS TYPE 2 06/17/2013 SHAYLA BORING MACHINE OPERATOR HORIZONTAL, WOODROW A 250.00 DIABETES MELLITUS TYPE 2 06/17/2013 CARLOS BORING MACHINE OPERATOR HORIZONTAL, CAMACHO S 250.00 DIABETES MELLITUS TYPE 2 06/17/2013 SHAYLA BORING MACHINE OPERATOR HORIZONTAL, WOODROW A 250.00 DIABETES MELLITUS TYPE 2 06/17/2013 CARLOS BORING MACHINE OPERATOR HORIZONTAL, CAMACHO S 250.00 DIABETES MELLITUS TYPE 2 06/17/2013 CARLOS BORING MACHINE OPERATOR HORIZONTAL, CAMACHO S 250.00 DIABETES MELLITUS TYPE 2 06/17/2013 CARLOS BORING MACHINE OPERATOR HORIZONTAL, CAMACHO S 250.00 DIABETES MELLITUS TYPE 2 06/17/2013 CARLOS BORING MACHINE OPERATOR HORIZONTAL, CAMACHO S 250.00 DIABETES MELLITUS TYPE 2 06/25/2013 SHAYLA BORING MACHINE OPERATOR HORIZONTAL, WOODROW A V65.49 OTHER SPECIFIED COUNSELING 06/25/2013 SHAYLA BORING MACHINE OPERATOR HORIZONTAL, WOODROW A V72.31 WOOD SHOP TEACHER EXAM, ROUTINE 06/25/2013 SHAYLA BORING MACHINE OPERATOR HORIZONTAL, WOODROW A V76.51 COLON CANCER SCREENING 06/25/2013 CARLOS BORING MACHINE OPERATOR HORIZONTAL, CAMACHO S V65.49 OTHER SPECIFIED COUNSELING 06/25/2013 CARLOS BORING MACHINE OPERATOR HORIZONTAL, CAMACHO S V72.31 WOOD SHOP TEACHER EXAM, ROUTINE 06/25/2013 CARLOS BORING MACHINE OPERATOR HORIZONTAL, CAMACHO S V76.51 COLON CANCER SCREENING 06/25/2013 SHAYLA BORING MACHINE OPERATOR HORIZONTAL, WOODROW A V65.49 OTHER SPECIFIED COUNSELING 06/25/2013 SHAYLA BORING MACHINE OPERATOR HORIZONTAL, WOODROW A V72.31 WOOD SHOP TEACHER EXAM, ROUTINE 06/25/2013 SHAYLA BORING MACHINE OPERATOR HORIZONTAL, WOODROW A V76.51 COLON CANCER SCREENING 06/25/2013 CARLOS BORING MACHINE OPERATOR HORIZONTAL, CAMACHO S V65.49 OTHER SPECIFIED COUNSELING 06/25/2013 CARLOS BORING MACHINE OPERATOR HORIZONTAL, CAMACHO S V72.31 WOOD SHOP TEACHER EXAM, ROUTINE 06/25/2013 CARLOS BORING MACHINE OPERATOR HORIZONTAL, CAMACHO S V76.51 COLON CANCER SCREENING 06/25/2013 CARLOS BORING MACHINE OPERATOR HORIZONTAL, CAMACHO S V65.49 OTHER SPECIFIED COUNSELING 06/25/2013 CARLOS BORING MACHINE OPERATOR HORIZONTAL, CAMACHO S V72.31 WOOD SHOP TEACHER EXAM, ROUTINE 06/25/2013 CARLOS BORING MACHINE OPERATOR HORIZONTAL, CAMACHO S V76.51 COLON CANCER SCREENING 06/25/2013 CARLOS BORING MACHINE OPERATOR HORIZONTAL, CAMACHO S V65.49 OTHER SPECIFIED COUNSELING 06/25/2013 CARLOS BORING MACHINE OPERATOR HORIZONTAL, CAMACHO S V72.31 WOOD SHOP TEACHER EXAM, ROUTINE 06/25/2013 CARLOS BORING MACHINE OPERATOR HORIZONTAL, CAMACHO S V76.51 COLON CANCER SCREENING 06/25/2013 CARLOS BORING MACHINE OPERATOR HORIZONTAL, CAMACHO S V65.49 OTHER SPECIFIED COUNSELING 06/25/2013 CARLOS BORING MACHINE OPERATOR HORIZONTAL, CAMACHO S V72.31 WOOD SHOP TEACHER EXAM, ROUTINE 06/25/2013 CARLOS BORING MACHINE OPERATOR HORIZONTAL, [place]CA[place] S V76.51 COLON CANCER SCREENING 09/30/2013 TOBY GONZALEZ APRNNDA S 300.4 DYSTHYMIC DISORDER 09/30/2013 CARLOS HICKMAN, CAMACHO S 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 09/30/2013 CARLOS HICKMAN, CAMACHO S 366.00 NONSENILE CATARACT UNSPECIFIED 09/30/2013 CARLOS HICKMAN, CAMACHO S 300.4 DYSTHYMIC DISORDER 09/30/2013 CARLOS HICKMAN, CAMACHO S 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 09/30/2013 CARLOS BORING MACHINE OPERATOR HORIZONTAL, CAMACHO S 366.00 NONSENILE CATARACT UNSPECIFIED 09/30/2013 CARLOS BORING MACHINE OPERATOR HORIZONTAL, CAMACHO S 300.4 DYSTHYMIC DISORDER 09/30/2013 CARLOS HICKMAN, CAMACHO S 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 09/30/2013 CARLOS BORING MACHINE OPERATOR HORIZONTAL, CAMACHO S 366.00 NONSENILE CATARACT UNSPECIFIED 09/30/2013 CARLOS BORING MACHINE OPERATOR HORIZONTAL, CAMACHO S 300.4 DYSTHYMIC DISORDER 09/30/2013 CARLOS BORING MACHINE OPERATOR HORIZONTAL, CAMACHO S 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 09/30/2013 CARLOS BORING MACHINE OPERATOR HORIZONTAL, CAMACHO S 366.00 NONSENILE CATARACT UNSPECIFIED 06/22/2014 TOBY GONZALEZ APRNNDA S 780.79 FATIGUE 08/17/2014 Ot V76.12 04/27/2015 CAMACHO GONZALEZP Ot G45.3 05/09/2015 CARLOSCAMACHO KING ELECTRONIC DIE MAKER Ot G45.3 07/26/2015 CARLOSCAMACHO KING ELECTRONIC DIE MAKER Ot Z12.31 2015 CARLOSCAMACHO LUNA ELECTRONIC DIE MAKER Ot Z12.31 08/29/2015 CARLOSTOBYCAMACHO ELECTRONIC DIE MAKER Ot Z12.31 09/28/2015 RUSS MENON MD Ot D50.9 IRON DEFICIENCY ANEMIA, UNSPECIFIED 09/28/2015 RUSS MENON MD Ot K21.9 GASTRO-ESOPHAGEAL REFLUX DISEASE WITHOUT 09/28/2015 RUSS MENON MD Ot Z01.818 ENCOUNTER FOR OTHER PREPROCEDURAL EXAMIN 09/28/2015 RUSS MENON MD Ot Z12.11 ENCOUNTER FOR SCREENING FOR MALIGNANT NE 09/29/2015 RUSS MENON MD Ot D50.9 IRON DEFICIENCY ANEMIA, UNSPECIFIED 09/29/2015 RUSS MENON MD Ot K21.9 GASTRO-ESOPHAGEAL REFLUX DISEASE WITHOUT 09/29/2015 URSS MENON MD Ot Z01.818 ENCOUNTER FOR OTHER PREPROCEDURAL EXAMIN 09/29/2015 RUSS MENON MD Ot Z12.11 ENCOUNTER FOR SCREENING FOR MALIGNANT NE 09/30/2015 RUSS MENON MD Ot D12.2 BENIGN NEOPLASM OF ASCENDING COLON 09/30/2015 RUSS MENON MD Ot D12.3 BENIGN NEOPLASM OF TRANSVERSE COLON 09/30/2015 RUSS MENON MD Ot D12.5 BENIGN NEOPLASM OF SIGMOID COLON 09/30/2015 RUSS MENON MD Ot D12.8 BENIGN NEOPLASM OF RECTUM 09/30/2015 RUSS MENON MD Ot D50.9 IRON DEFICIENCY ANEMIA, UNSPECIFIED 09/30/2015 RUSS MENON MD Ot K21.9 GASTRO-ESOPHAGEAL REFLUX DISEASE WITHOUT 09/30/2015 RUSS MENON MD Ot K44.9 DIAPHRAGMATIC HERNIA WITHOUT OBSTRUCTION 09/30/2015 RUSS MENON MD Ot K57.30 DVRTCLOS OF LG INT W/O PERFORATION OR AB 09/30/2015 RUSS MENON MD Ot Z12.11 ENCOUNTER FOR SCREENING FOR MALIGNANT NE 10/04/2015 RUSS MENON MD Ot D12.2 BENIGN NEOPLASM OF ASCENDING COLON 10/04/2015 RUSS MENON MD Ot D12.3 BENIGN NEOPLASM OF TRANSVERSE COLON 10/04/2015 [facility], RUSS Pandya Ot D12.5 BENIGN NEOPLASM OF SIGMOID COLON 10/04/2015 RUSS MENON MD Ot D12.8 BENIGN NEOPLASM OF RECTUM 10/04/2015 RUSS MENON MD Ot D50.9 IRON DEFICIENCY ANEMIA, UNSPECIFIED 10/04/2015 RUSS MENON MD Ot K21.9 GASTRO-ESOPHAGEAL REFLUX DISEASE WITHOUT 10/04/2015 RUSS MENON MD Ot K44.9 DIAPHRAGMATIC HERNIA WITHOUT OBSTRUCTION 10/04/2015 RUSS MENON MD Ot K57.30 DVRTCLOS OF LG INT W/O PERFORATION OR AB 10/04/2015 RUSS MENON MD Ot Z12.11 ENCOUNTER FOR SCREENING FOR MALIGNANT NE 10/13/2015 RUSS MENON MD Ot D12.2 BENIGN NEOPLASM OF ASCENDING COLON 10/13/2015 RUSS MENON MD Ot D12.3 BENIGN NEOPLASM OF TRANSVERSE COLON 10/13/2015 RUSS MENON MD Ot D12.5 BENIGN NEOPLASM OF SIGMOID COLON 10/13/2015 RUSS MENON MD Ot D12.8 BENIGN NEOPLASM OF RECTUM 10/13/2015 RUSS MENON MD Ot D50.9 IRON DEFICIENCY ANEMIA, UNSPECIFIED 10/13/2015 RUSS MENON MD Ot K21.9 GASTRO-ESOPHAGEAL REFLUX DISEASE WITHOUT 10/13/2015 RUSS MENON MD Ot K44.9 DIAPHRAGMATIC HERNIA WITHOUT OBSTRUCTION 10/13/2015 RUSS MENON MD Ot K57.30 DVRTCLOS OF LG INT W/O PERFORATION OR AB 10/13/2015 URSS MENON MD Ot Z12.11 ENCOUNTER FOR SCREENING FOR MALIGNANT NE 08/28/2016 CAMACHO GONZALEZP Ot V76.12 OTH SCREEN MAMMO-MALIGN NEOPLASM OF EDSON 08/28/2016 Ot V76.12 OTH SCREEN MAMMO-MALIGN NEOPLASM OF EDSON 08/28/2016 CAMACHO GONZALEZ [employer] Ot G45.3 AMAUROSIS FUGAX 08/28/2016 CAMACHO GONZALEZ [employer] Ot Z12.31 ENCNTR SCREEN MAMMOGRAM FOR MALIGNANT NE 08/28/2016 CAMACHO GONZALEZP Ot Z12.31 ENCNTR SCREEN MAMMOGRAM FOR MALIGNANT NE 08/29/2016 CAMACHO GONZALEZ [employer] Ot Z12.31 ENCNTR SCREEN MAMMOGRAM FOR MALIGNANT NE 08/29/2016 CAMACHO GONZALEZ [employer] MAK[employer] Ot Z12.31 ENCNTR SCREEN MAMMOGRAM FOR MALIGNANT NE 09/18/2016 CAMACHO GONZALEZ E[employer] MAK[employer] Ot Z12.31 ENCNTR SCREEN MAMMOGRAM FOR MALIGNANT NE 09/28/2016 CAMACHO GONZALEZ [employer] Ot Z12.31 ENCNTR SCREEN MAMMOGRAM FOR MALIGNANT NE Procedures Code [place] [address] ROUTINE VENIPUNCTURE 04/21/2012 00556 CBC 04/21/2012 18960 CMP 04/21/2012 80227 LIPID PANEL 04/21 8539904 GFR CALC (RESULT ONLY) 04/21/2012 05122 ROUTINE VENIPUNCTURE 06/10/2013 68269 MAMMOGRAM, SCREENING 06/10/20138877692 GFR CALC (RESULT ONLY) 06/10/2013 74630 CMP 06/10/2013 48173 LIPID PANEL 06/10 01527 INSULIN LEVEL 16109 A1C (IN-HOUSE) 27167 HEMOCCULT 2013 17816 MICRO ALBUMIN-IN HOUSE 11/04/2013 Results Test Result Range Complete blood count (CBC) with automated white blood cell (WBC) differential - 11/24/16 08:25 Blood leukocytes automated count (number/volume) 9.1 10*3/ uL 4.3-11.0 Blood erythrocytes automated count (number/volume) 4.20 10*6 /uL 4.35-5.85 Venous blood hemoglobin measurement (mass/volume) 12.3 g/dL 11.5-16.0 Blood hematocrit (volume fraction) 37 % 35-52 Automated erythrocyte mean corpuscular volume 87 [foz_us] 80-99 Automated erythrocyte mean corpuscular hemoglobin (mass per erythrocyte) 29 pg 25-34 Automated erythrocyte mean corpuscular hemoglobin concentration measurement ( mass/volume) 34 g/dL 32-36 Automated erythrocyte distribution width ratio 13.1 % 10.0-14.5 Automated blood platelet count (count/volume) 139 10*3/uL 130-400 Automated blood platelet mean volume measurement 10.4 [foz_ us] 7.4-10.4 Automated blood neutrophils/100 leukocytes 79 % 42-75 Automated blood lymphocytes/100 leukocytes 13 % 12-44 Blood monocytes/100 leukocytes 6 % 0-12 Automated blood eosinophils/100 leukocytes 1 % 0-10 Automated blood basophils/100 leukocytes 0 % 0-10 Blood neutrophils automated count (number/volume) 7.2 10*3 1.8-7.8 Blood lymphocytes automated count (number/volume) 1.2 10*3 1.0-4.0 Blood monocytes automated count (number/volume) 0.6 10*3 0.0-1.0 Automated eosinophil count 0.1 10*3/uL 0.0-0.3 Automated blood basophil count (count/volume) 0.0 10*3/uL 0.0-0.1 PT panel in platelet poor plasma by coagulation assay - 11/24/16 08:25 Prothrombin time (PT) in platelet poor plasma by coagulation assay 13.0 s 12.2-14.7 INR in platelet poor plasma or blood by coagulation assay 1.0 0.8-1.4 Activated partial thromboplastin time (aPTT) in platelet poor plasma bycoagulation assay - 11/24/16 08:25 Activated partial thromboplastin time (aPTT) in platelet poor plasma bycoagulation assay 31 s 24-35 Comprehensive metabolic panel - 11/24/16 08:25 Serum or plasma sodium measurement (moles/volume) 136 mmol/ L 135-145 Serum or plasma potassium measurement (moles/volume) 4.0 mmol/L 3.6-5.0 Serum or plasma chloride measurement (moles/volume) 103 mmol /L 98-107 Carbon dioxide 20 mmol/L 21-32 Serum or plasma anion gap determination (moles/volume) 13 mmol/L 5-14 Serum or plasma urea nitrogen measurement (mass/volume) 15 mg/dL 7-18 Serum or plasma creatinine measurement (mass/volume) 0.81 mg /dL 0.60-1.30 Serum or plasma urea nitrogen/creatinine mass ratio 19 NRG Serum or plasma creatinine measurement with calculation of estimated glomerular filtration rate > NRG Serum or plasma glucose measurement (mass/volume) 153 mg/dL 70-105 Serum or plasma calcium measurement (mass/volume) 9.5 mg/dL 8.5-10.1 Serum or plasma total bilirubin measurement (mass/volume) 0.7 mg/dL 0.1-1.0 Serum or plasma alkaline phosphatase measurement (enzymatic activity/volume) 77 U/L 40-136 Serum or plasma aspartate aminotransferase measurement (enzymatic activity/ volume) 33 U/L 5-34 Serum or plasma alanine aminotransferase measurement (enzymatic activity/volume ) 32 U/L 0-55 Serum or plasma protein measurement (mass/volume) 7.8 g/dL 6.4-8.2 Serum or plasma albumin measurement (mass/volume) 4.3 g/dL 3.2-4.5 Magnesium - 11/24/16 08:25 Magnesium 2.4 mg/dL 1.8-2.4 Serum or plasma amylase measurement (enzymatic activity/volume) - 11/24/16 08: 25 Serum or plasma amylase measurement (enzymatic activity/volume) 33 U/L 25-125 Lipase - 11/24/16 08:25 Lipase 13 U/L 8-78 Blood lactic acid measurement (moles/volume) - 11/24/16 08:45 Blood lactic acid measurement (moles/volume) 2.02 mmol/L 0.50-2.00 Complete urinalysis with reflex to culture - 11/24/16 09:35 Urine color determination YELLOW NRG Urine clarity determination CLEAR NRG Urine pH measurement by test strip 7 5- 9 Specific gravity of urine by test strip 1.010 1.016-1.022 Urine protein assay by test strip, semi-quantitative 1+ NEGATIVE Urine glucose detection by automated test strip NEGATIVE NEGATIVE Erythrocytes detection in urine sediment by light microscopy NEGATIVE NEGATIVE Urine ketones detection by automated test strip NEGATIVE NEGATIVE Urine nitrite detection by test strip NEGATIVE NEGATIVE Urine total bilirubin detection by test strip NEGATIVE NEGATIVE Urine urobilinogen measurement by automated test strip (mass/volume) 1 mg/dL NORMAL Urine leukocyte esterase detection by dipstick 3+ NEGATIVE Automated urine sediment erythrocyte count by microscopy (number/high power field) NONE NRG Automated urine sediment leukocyte count by microscopy (number/high power field ) [HPF] NRG Bacteria detection in urine sediment by light microscopy TRACE NRG Squamous epithelial cells detection in urine sediment by light microscopy 0-5 NRG Crystals detection in urine sediment by light microscopy NONE NRG Casts detection in urine sediment by light microscopy PRESENT NRG Mucus detection in urine sediment by light microscopy SMALL NRG Complete urinalysis with reflex to culture YES NRG Hyaline casts detection in urine sediment by light microscopy 0-2 NRG Encounters ACCT No. Visit Date/Time Discharge Status Pt. Type Provider Facility Loc./Unit Complaint [id number] 06/22/2014 08:35:00 06/22/2014 23: 59:59 CLS Outpatient CARLOS BORING MACHINE OPERATOR [facility] S [id number] 11/04/2013 13:34:00 11/04/2013 23: 59:59 CLS Outpatient CARLOS BORING MACHINE OPERATOR [facility] S [id number] 11/04/2013 13:34:00 11/04/2013 23: 59:59 CLS Outpatient CARLOS BORING MACHINE OPERATOR [facility] S [id number] 09/30/2013 08:42:00 09/30/2013 23: 59:59 CLS Outpatient CARLOS BORING MACHINE OPERATOR [facility] S [id number] 06/25/2013 10:33:00 06/25/2013 23: 59:59 CLS Outpatient SHAYLA MARYLOU, [place] A [id number] 06/25/2013 10:33:00 06/25/2013 23: 59:59 CLS Outpatient SHAYLA APRN, [place] A [id number] 06/15/2013 08:59:00 06/15/2013 23: 59:59 CLS Outpatient CARLOS B[employer]ING MACHINE OPERATOR [facility] S [id number] 06/10/2013 09:15:00 06/10/2013 23: 59:59 CLS Outpatient CARLOS BORING MACHINE OPERATOR [facility] S [id number] 06/10/2013 09:15:00 06/10/2013 23: 59:59 CLS Outpatient CARLOS BORING MACHINE OPERATOR HORIZONTAL, CAMACHO S [id number] 04/09/2013 17:59:00 04/09/2013 23: 59:59 CLS Outpatient CARLOS BORING MACHINE OPERATOR [facility] S [id number] 04/21/2012 11:24:00 04/21/2012 23: 59:59 CLS Outpatient [id number] 04/21/2012 11:24:00 04/21/2012 23: 59:59 CLS Outpatient CARLOS BORING MACHINE OPERATOR HORIZONTAL, CAMACHO S [id number] 01/23/2013 14:32:00 Document Registration [id number] 12/03/2012 13:33:00 Document Registration
[2016-11-27] MEDS ORDERED: SIMV20TA3 PO ×2 (14:15)
[2016-11-27] MEDS ORDERED: OMEP20CA12 PO ×2 (14:15)
[2016-11-27] MEDS ORDERED: CYCL10TA9 PO ×2 (14:15)
[2016-11-27] MEDS ORDERED: TRAM50TA2 PO ×2 (14:15)
--- NOTE | 2016-11-28 08:37 | HISTORY AND PHYSICAL ---
DATE OF ADMISSION: 11/23/2016 PRIMARY CARE PHYSICIAN: Dr. Flor Ms. Adrianna Rodas is a 66-year-old white female undergoing surveillance colonoscopy due to a past history of multiple adenomatous polyps. The largest one was a villous adenoma. It was sessile, flat about 8 mm in size, with a lobular appearance removed from the rectosigmoid junction a little over a year ago. In the interim, she has had no bright red blood per rectum, melena or reported bowel habit change. She had no difficulty with her last colonoscopy and denies any problems with bleeding post procedure. She had 4 adenomas removed, most significant one is noted above. PAST MEDICAL HISTORY: Significant for hypertension, depression, and gastroesophageal reflux. She has disability secondary to chronic foot pain felt to be due to osteoarthritis. PAST SURGICAL HISTORY: She had a right oophorectomy in 1972 for reported benign disease and tubal ligation following that. She had been a total abdominal hysterectomy with left nephrectomy in 1996, a cholecystectomy in 2008 and also had an appendectomy many years ago. SOCIAL HISTORY: She has no reported past smoking history or drinking history, currently disabled due to osteoarthritis of the feet. FAMILY HISTORY: Her grandmother had history of colon problems, possibly cancer or at least polyps. Her mother is still living at the age of 87 with a past history of cervical cancer. Her father of lung cancer felt to be smoking-related at the age of 63. PHYSICAL EXAMINATION: Reveals a pleasant white female who appears to be in no acute distress. CHEST: Clear. CV: Revealed a regular rate and rhythm without murmur, S3 or S4. VITAL SIGNS: Blood pressure 110/60, heart rate 80 and regular. ABDOMEN: Obese, soft, supple without masses or organomegaly. No tenderness was noted. Bowel sounds are positive. EXTREMITIES: Reveal no cyanosis, clubbing, or edema. The patient is set-up for surveillance colonoscopy due to a past history of multiple colonic adenomas, specifically 4 removed last year, the most significant one being a tubulovillous adenoma of the rectosigmoid junction. She will abstain from aspirin and nonsteroidal medication and was set-up for this November 23. Thank you for the referral of this pleasant lady. Sincerely, Job ID: [id number] Dictated Date: 11/19/2016 14:22:00 [employer] Specialist Date: 11/19/2016 16:25:57/hal
== END 2016-11-23 12:45 | disposition home or self-care (01) ==
LOC: ENDO 08:41
PROVIDERS: ATTEND Internal Medicine
DX: Z09 Encounter for follow-up examination after completed treatment for conditions other than malignant neoplasm (principal); K63.5 Polyp of colon; Z86.010 Personal history of colon polyps; I10 Essential (primary) hypertension; F32.9 Major depressive disorder, single episode, unspecified; K21.9 Gastro-esophageal reflux disease without esophagitis
CPT/HCPCS: 88305

== ENCOUNTER 2016-11-24 07:26 | Emergency (ER) | payer MEDICARE, MEDICAID ==
[~2016-11-24] VITALS: Ht 170.2 cm; Wt 98.9 kg
--- NOTE | 2016-11-24 08:30 | ED Abdominal Pain ---
General Chief Complaint: Abdominal/GI Problems Stated Complaint: STOMACH PAIN, FEVER Nursing Triage Note: c/o abd pain/fever. Onset yesterday. Pt had a colonoscopy yesterday-removed a polyp. Denies rectal bleeding. No vomiting Sepsis Screen: No Definite Risk Source of Information: Patient History of Present Illness Time Seen By Provider: 07:55 Initial Comments PT HAD A COLONOSCOPY AND POLYPECTOMY DONE YESTERDAY BY DR. MENON PASSED GAS RIGHT AFTER THE PROCEDURE, BUT HAS NOT PASSED ANY GAS SINCE THEN AND NO BM HAS HAD INCREASING ABDOMINAL PAIN SINCE COLONOSCOPY--HURTS TO TOUCH OR MOVE HAS BEGAN TO HAVE FEVER AND CHILLS DURING THE NIGHT--TEMP UP TO 99.5 AT 0600 THIS AM NO NAUSEA OR VOMITING, AND PT ATE LUNCH AT 1300 YESTERDAY, AND HAD HOMEMADE ICE CREAM LAST PM, NO INTAKE SINCE THEN NO PROBLEMS URINATING NO RECTAL BLEEDING PT HAS HTN AND IS DIABETIC, AND TOOK ALL AM MEDICATIONS THIS AM HAS NOT CHECKED BLOOD SUGAR THIS AM PCP: NASIMA, BECCA GONZALEZ Allergies and Home Medications Allergies Coded Allergies: No Known Drug Allergies (Verified , 09/30/15) Home Medications Ciprofloxacin HCl 500 Mg Tablet, 500 MG PO BID, #20 Prescribed by: KALI WHITAKER on 11/24/16 1019 Hydrocodone/Ibuprofen 1 Each Tablet, 1-2 EACH PO Q4H, #20 Prescribed by: KALI WHITAKER on 11/24/16 1013 Lisinopril 40 Mg Tablet, 40 MG PO DAILY, (Reported) Metformin HCl 500 Mg Tablet, 500 MG PO BID, (Reported) Omeprazole 20 Mg Tablet.dr, 20 MG PO DAILY, (Reported) Ondansetron 4 Mg Tab.rapdis, 4 MG PO Q4H, #10 Prescribed by: KALI WHITAKER on 11/24/16 1013 Pioglitazone HCl 30 Mg Tablet, 30 MG PO DAILY, (Reported) Sertraline HCl 100 Mg Tablet, 100 MG PO DAILY, (Reported) Tamsulosin HCl 0.4 Mg Cap, 0.4 MG PO DAILY, #10 Prescribed by: KALI WHITAKER on 11/24/16 1013 Review of Systems Constitutional: see HPI, chills, fever Respiratory: No Symptoms Reported Cardiovascular: No Symptoms Reported Gastrointestinal: See HPI, Abdominal Pain, Denies Nausea, Poor Appetite, Poor Fluid Intake, Denies Vomiting Genitourinary: No Symptoms Reported Musculoskeletal: no symptoms reported Skin: no symptoms reported Psychiatric/Neurological: Headache, Other (NEURPATHY IN FEET/CHRONIC PAIN ) Endocrine: No Symptoms Reported Hematologic/Lymphatic: No Symptoms Reported Past Npvvnrb-Fsdmtg-Frrcsa Hx Patient Social History Alcohol Use: Denies Use Recreational Drug Use: No Smoking Status: Never a Smoker Recent Foreign Travel: No Contact w/Someone Who Travel: No Recent Infectious Disease Expo: No Recent Hopitalizations: No Seasonal Allergies Seasonal Allergies: No Surgeries HX Surgeries: Yes (R OVARIAN CYSTECTOMY, CATARACTS; COLONOSCOPIES WITH POLYPECTOMIES) Surgeries: Hysterectomy Respiratory Hx Respiratory Disorders: No Cardiovascular Hx Cardiac Disorders: Yes Cardiac Disorders: Hypertension Neurological Hx Neurological Disorders: 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 Genitourinary Hx Genitourinary Disorders: No Gastrointestinal Hx Gastrointestinal Disorders: No Gastrointestinal Disorders: Polyps Musculoskeletal Hx Musculoskeletal Disorders: No Endocrine Hx Endocrine Disorders: Yes Endocrine Disorders: Diabetes, Non-Insulin dep HEENT HX ENT Disorders: Yes (PARTIAL ) HEENT Disorders: Macular Degeneration Cancer Hx Cancer: No Psychosocial Hx Psychiatric Problems: No Integumentary HX Skin/Integumentary Disorder: No Blood Transfusions Hx Blood Disorders: No Physical Exam Vital Signs VS - Last 72 Hours, by Label 11/24/16 11/24/16 08:10 10:38 Temp 99.8 99.8 Pulse 90 Resp 16 B/P (MAP) 115/75 Pulse Ox 98 Capillary Refill : Less Than 3 Seconds General Appearance: WD/WN, no apparent distress HEENT: PERRL/EOMI Neck: normal inspection Respiratory: normal breath sounds, no respiratory distress, no accessory muscle use Cardiovascular: regular rate, rhythm, no murmur Gastrointestinal: abnormal bowel sounds (DECREASED), distended (SLIGHTLY), guarding, rebound, tenderness (DIFFUSE UPPER ABDOMINAL AND LEFT SIDED ABDOMINAL TENDERNESS, WITH MILDER TENDERNESS IN OTHER QUADRANTS), No hernia, No mass Extremities: normal inspection, no pedal edema, normal capillary refill Back: normal inspection, no vertebral tenderness, CVA tenderness (L) 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, no motor/sensory deficits, alert, normal mood/affect, oriented x 3 Skin: normal color, warm/dry Focused Exam Lactic Acid Level Laboratory Tests Test 11/24/16 08:45 Lactic Acid Level 2.02 MMOL/L (0.50-2.00) *H Progress/Results/Core Measures Results/Orders Lab Results Laboratory Tests Test 11/24/16 08:25 11/24/16 08:45 11/24/16 09:35 Range/Units White Blood Count 9.1 4.3-11.0 10^3/uL Red Blood Count 4.20 L 4.35-5.85 10^6/uL Hemoglobin 12.3 11.5-16.0 G/DL Hematocrit 37 35-52 % Mean Corpuscular Volume 87 80-99 FL Mean Corpuscular Hemoglobin 29 25-34 PG Mean Corpuscular Hemoglobin Concent 34 32-36 G/DL Red Cell Distribution Width 13.1 10.0-14.5 % Platelet Count 139 130-400 10^3/uL Mean Platelet Volume 10.4 7.4-10.4 FL Neutrophils (%) (Auto) 79 H 42-75 % Lymphocytes (%) (Auto) 13 12-44 % Monocytes (%) (Auto) 6 0-12 % Eosinophils (%) (Auto) 1 0-10 % Basophils (%) (Auto) 0 0-10 % Neutrophils # (Auto) 7.2 1.8-7.8 X 10^3 Lymphocytes # (Auto) 1.2 1.0-4.0 X 10^3 Monocytes # (Auto) 0.6 0.0-1.0 X 10^3 Eosinophils # (Auto) 0.1 0.0-0.3 10^3/uL Basophils # (Auto) 0.0 0.0-0.1 10^3/uL Prothrombin Time 13.0 12.2-14.7 SEC INR Comment 1.0 0.8-1.4 Activated Partial Thromboplast Time 31 24-35 SEC Sodium Level 136 135-145 MMOL/L Potassium Level 4.0 3.6-5.0 MMOL/L Chloride Level 103 98-107 MMOL/L Carbon Dioxide Level 20 L 21-32 MMOL/L Anion Gap 13 5-14 MMOL/L Blood Urea Nitrogen 15 7-18 MG/DL Creatinine 0.81 0.60-1.30 MG/DL Estimat Glomerular Filtration Rate > 60 BUN/Creatinine Ratio 19 Glucose Level 153 H 70-105 MG/DL Calcium Level 9.5 8.5-10.1 MG/DL Magnesium Level 2.4 1.8-2.4 MG/DL Total Bilirubin 0.7 0.1-1.0 MG/DL Aspartate Amino Transf (AST/SGOT) 33 5-34 U/L Alanine Aminotransferase (ALT/SGPT) 32 0-55 U/L Alkaline Phosphatase 77 40-136 U/L Total Protein 7.8 6.4-8.2 GM/DL Albumin 4.3 3.2-4.5 GM/DL Amylase Level 33 25-125 U/L Lipase 13 8-78 U/L Lactic Acid Level 2.02 *H 0.50-2.00 MMOL/L Urine Color YELLOW Urine Clarity CLEAR Urine pH 7 5-9 Urine Specific [place] 1.010 L 1.016-1.022 Urine Protein 1+ H NEGATIVE Urine Glucose (UA) NEGATIVE NEGATIVE Urine Ketones NEGATIVE NEGATIVE Urine Nitrite NEGATIVE NEGATIVE Urine Bilirubin NEGATIVE NEGATIVE Urine Urobilinogen 1 NORMAL MG/DL Urine Leukocyte Esterase 3+ H NEGATIVE Urine RBC (Auto) NEGATIVE NEGATIVE Urine RBC NONE /HPF Urine WBC 20-30 /HPF Urine Squamous Epithelial Cells 0-5 /HPF Urine Crystals NONE /LPF Urine Bacteria TRACE /HPF Urine Casts PRESENT /LPF Urine Hyaline Casts 0-2 H /LPF Urine Mucus SMALL H /LPF Urine Culture Indicated YES My Orders Orders - KALI WHITAKER K DO Saline Lock/Iv-Start (11/24/16 07:58) Monitor-Rhythm Ecg Trace Only (11/24/16 07:58) Amylase (11/24/16 07:58) Cbc With Automated Diff (11/24/16 07:58) Comprehensive Metabolic Panel (11/24/16 07:58) Lactic Acid Analyzer (11/24/16 07:58) Lipase (11/24/16 07:58) Magnesium (11/24/16 07:58) Protime With Inr (11/24/16 07:58) Partial Thromboplastin Time (11/24/16 07:58) Ua Culture If Indicated (11/24/16 07:58) Blood Culture (11/24/16 07:58) Saline Lock/Iv-Start (11/24/16 08:37) Ns Iv 1000 Ml (Sodium Chloride 0.9%) (11/24/16 08:37) Ct Abdomen/Pelvis W (11/24/16 09:02) Acute Abd Series (11/24/16 09:02) Iohexol Injection (Omnipaque 350 Mg/Ml 1 (11/24/16 09:15) Di Iv Start (Assessment) .on IV start (11/24/16 09:04) Ketorolac Injection (Toradol Injection) (11/24/16 09:53) Urine Culture (11/24/16 09:35) Ceftriaxone Injection (Rocephin Injectio (11/24/16 10:15) Ceftriaxone Injection (Rocephin Injectio (11/24/16 10:31) Ns (Ivpb) (Sodium Chloride 0.9% Ivpb Bag (11/24/16 10:32) Medications Given in ED Current Medications Medications Dose Ordered Sig/Roly Route Start Time Stop Time Status Last Admin Dose Admin Ceftriaxone Sodium 1000 mg/ Sodium Chloride 50 ml @ 100 mls/hr ONCE ONCE IV 11/24/16 10:15 11/24/16 10:47 DC 11/24/16 10:38 100 MLS/HR Iohexol 100 ml ONCE ONCE IV 11/24/16 09:15 11/24/16 09:16 DC 11/24/16 09:16 100 ML Sodium Chloride 1,000 ml @ 0 mls/hr Q0M ONCE IV 11/24/16 08:37 11/24/16 08:41 DC 11/24/16 08:50 0 MLS/HR Vital Signs/I&O Vital Sign - Last 12Hours 11/24/16 11/24/16 08:10 10:38 Temp 99.8 99.8 Pulse 90 Resp 16 B/P (MAP) 115/75 Pulse Ox 98 Blood Pressure Mean: 88 Progress Note : Progress Note PAIN RESOLVED WITH MEDICATIONS, INCLUDING PAIN IN FEET FROM NEUROPATHY AND HEADACHE IS RESOLVED Diagnostic Imaging Comments ACUTE ABDOMEN XRAYS--PROBABLE LEFT URETERAL STONE, OTHERWISE NO ACUTE PROCESS CT ABDOMEN/PELVIS--1.4 CM STONE IN LEFT PROXIMAL UVJ WITH HYDRONEPHROSIS, FATTY LIVER. DIVERTICULAR DISEASE WITHOUT ACUTE DIVERTICULITIS PER RADIOLOGISTS REPORTS @ 0953 Reviewed: Reviewed by Me Departure Communication Progress Notes 1007--ATTEMPTING TO CONTACT DR. MORRISSEY. MESSAGE LEFT ON CELL PHONE [phone]--SPOKE WITH DR. MORRISSEY. HE WILL SEE PT IN OFFICE ON SATURDAY AT 1:00 Impression Impression: Primary Impression: Left ureteral stone Additional Impression: UTI (urinary tract infection) Disposition: HOME, SELF-CARE Condition: Improved Departure-Patient Inst. Referrals: [facility] (PCP) Primary Care Physician CAMACHO GONZALEZ (Family) Primary Care Physician NATALIIA MORRISSEY MD Patient Instructions: Kidney Stones (DC), Urinary Tract Infection, Adult (DC) Add. Discharge Instructions: LOTS OF CLEAR LIQUIDS--DRINK ENOUGH SO YOU ARE URINATING EVERY 2-3 HOURS WHILE AWAKE FOLLOW UP WITH DR. MORRISSEY ON SATURDAY AT 1:00 RETURN TO ER IF WORSE All discharge instructions reviewed with patient and/or family. Voiced understanding. Scripts Ciprofloxacin HCl (Cipro) 500 Mg Tablet 500 MG PO BID, #20 TAB Prov: KALI WHITAKER K DO 11/24/16 Tamsulosin HCl (Flomax) 0.4 Mg Cap 0.4 MG PO DAILY, #10 CAP Prov: KALI WHITAKER DO 11/24/16 Hydrocodone/Ibuprofen (Hydrocodone-Ibuprofen 7.5-200) 1 Each Tablet 1-2 EACH PO Q4H for Pain, #20 TAB Prov: KALI WHITAKER DO 11/24/16 Ondansetron (Zofran Odt) 4 Mg Tab.rapdis 4 MG PO Q4H for Nausea/Vomiting, #10 TAB Prov: BYRON WHITAKERA K DO 11/24/16 KALI WHITAKER DO Nov 24, 2016 08:30
[2016-11-24 08:32] LABS: BASOPHILS % (AUTO) 0 % (0-10); EOSINOPHILS # (AUTO) 0.1 10^3/uL (0.0-0.3); EOSINOPHILS % (AUTO) 1 % (0-10); LYMPHOCYTES # (AUTO) 1.2 X 10^3 (1.0-4.0); LYMPHOCYTES % (AUTO) 13 % (12-44); MEAN CORPUSCULAR HEMOGLOBIN 29 PG (25-34); MEAN CORPUSCULAR HGB CONC 34 G/DL (32-36); MEAN CORPUSCULAR VOLUME 87 FL (80-99); MEAN PLATELET VOLUME 10.4 FL (7.4-10.4); MONOCYTES # (AUTO) 0.6 X 10^3 (0.0-1.0); MONOCYTES % (AUTO) 6 % (0-12); NEUTROPHILS # (AUTO) 7.2 X 10^3 (1.8-7.8); NEUTROPHILS % (AUTO) 79 % (42-75); PLATELET COUNT 139 10^3/uL (130-400); RED CELL DISTRIBUTION WIDTH 13.1 % (10.0-14.5); WHITE BLOOD COUNT 9.1 10^3/uL (4.3-11.0)
[2016-11-24] MEDS ORDERED: NS IV 1000 ML 1,000 ML IV ONE (08:37)
[2016-11-24 08:57] LABS: ALANINE AMINOTRANSFERASE 32 U/L (0-55); ALBUMIN 4.3 GM/DL (3.2-4.5); AMYLASE 33 U/L (25-125); ANION GAP 13 MMOL/L (5-14); ASPARTATE AMINO TRANSFERASE 33 U/L (5-34); BILIRUBIN,TOTAL 0.7 MG/DL (0.1-1.0); BLOOD UREA NITROGEN 15 MG/DL (7-18); BUN/CREATININE RATIO 19; CALCIUM 9.5 MG/DL (8.5-10.1); CARBON DIOXIDE 20 MMOL/L (21-32); CHLORIDE 103 MMOL/L (98-107); CREATININE SERUM 0.81 MG/DL (0.60-1.30); GFR ESTIMATED > 60; GLUCOSE 153 MG/DL (70-105); LIPASE 13 U/L (8-78); MAGNESIUM 2.4 MG/DL (1.8-2.4); SODIUM 136 MMOL/L (135-145); TOTAL PROTEIN 7.8 GM/DL (6.4-8.2)
[2016-11-24] MEDS ORDERED: IOHEXOL 350 MG/ML 100 ML (OMNIPAQUE 350) VIAL IV ONE (09:15)
--- NOTE | 2016-11-24 09:35 | Diagnostic Imaging Report ---
INDICATION: Epigastric pain, fever and headache after colonoscopy. FINDINGS: The heart size is normal. The lungs are clear. There is no pleural effusion or pneumothorax. The bowel gas pattern is nonspecific. There is no free air. There are surgical clips in the right upper quadrant. There appears to be a stone in the left kidney. IMPRESSION: No acute cardiopulmonary abnormality Nonspecific bowel gas pattern. Probable left nephrolithiasis Dictated by: Dictated on workstation # [id number]
[2016-11-24 09:43] LABS: BILIRUBIN,URINE NEGATIVE (NEGATIVE); KETONES,URINE NEGATIVE (NEGATIVE); LEUKOCYTE ESTERASE ,URINE 3+ (NEGATIVE); NITRITE,URINE NEGATIVE (NEGATIVE); PH,URINE 7 (5-9); PROTEIN,URINE 1+ (NEGATIVE); UROBILINOGEN,URINE 1 MG/DL (NORMAL)
--- NOTE | 2016-11-24 09:49 | Diagnostic Imaging Report ---
PROCEDURE: CT abdomen and pelvis with contrast. TECHNIQUE: Multiple contiguous axial images were obtained through the abdomen and pelvis after administration of intravenous contrast. INDICATION: Abdominal pain after colonoscopy. FINDINGS: The heart size is normal. The lung bases are clear. There is fatty infiltration of the liver. The gallbladder is surgically absent. The spleen is unremarkable. The pancreas and adrenal glands are unremarkable. There is a left hydronephrosis secondary to a 1.4 cm stone in the region of the right UPJ. The right kidney is normal. The aorta is nonaneurysmal. The bowel gas pattern is nonspecific. There is no free air. There is no ascites. There is no pelvic mass, adenopathy or free fluid. There is mild diverticular disease without evidence of diverticulitis. There are degenerative changes in the spine. IMPRESSION: Left hydronephrosis secondary to a 1.4 cm stone in the region of the left UPJ. Diverticular disease without evidence of diverticulitis. Fatty infiltration of the liver. Dictated by: Dictated on workstation # [id number]
[2016-11-24] MEDS ORDERED: KETOROLAC 30 MG/ML VIAL IVP STA (09:53)
[2016-11-24 09:59] LABS: HYALINE CASTS, URINE 0-2 /LPF; SQUAMOUS EPITHELIAL CELL,UR 0-5 /HPF; WBC,URINE 20-30 /HPF
[2016-11-24] MEDS ORDERED: NITR-65 PO (10:13)
[2016-11-24] MEDS ORDERED: HYDR-87 PO (10:13)
[2016-11-24] MEDS ORDERED: ONDA4TAB8 PO (10:13)
[2016-11-24] MEDS ORDERED: TAMS0.4C98 PO (10:13)
[2016-11-24] MEDS ORDERED: cefTRIAXone INJECTION 1,000 MG in NS (IVPB) 50 ML IV ONE (10:15)
[2016-11-24] MEDS ORDERED: CIPR-225 PO (10:19)
[2016-11-24] MEDS ORDERED: cefTRIAXone 1 GM (ROCEPHIN) VIAL ONE (10:31)
[2016-11-24] MEDS ORDERED: NS (IVPB) 100 ML ONE (10:32)
[2016-11-24 11:00] VITALS: BP 116/70
--- OUTSIDE RECORDS SUMMARY | 2016-11-27 08:55 | XMS REPORT | Continuity of Care Document ---
Author Author [facility] Organization [facility] Address Unknown Phone Unavailable Care Team Providers Care Milieu Coordinator Name Role Phone Arturo Deleon PCP [phone] Source Comments Some departments are not documenting in the electronic medical record. If you do not see the information that you expected, contact Release of Information in the Health Information Management department at [phone] for further assistance in locating additional records.[facility] Active Allergies and Adverse Reactions Not on [...]
--- OUTSIDE RECORDS SUMMARY | 2016-11-27 08:57 | XMS REPORT | Continuity of Care Document ---
Author Author [facility] Address Unknown Phone Unavailable Allergies Active Description Code Type Severity Reaction Onset Reported/Identified Relationship to Patient Clinical Status Yes gabapentin Drug Allergy 10/09/2010 Yes gabapentin Drug Allergy N/A N/A 10/09/2010 Yes No Known Drug Allergies [id number] Drug Allergy Unknown N/ A 09/30/2015 Medications Problems Date Dx Coded Attending Type Code Diagnosis Diagnosed By 12/20/2007 401.9 Unspecified Essential Hypertension 12/20/2007 CARLOS HICKMAN CAMACHO S 401.9 Unspecified Essential Hypertension 12/20/2007 401.9 Unspecified Essential Hypertension 12/20/2007 401.9 Unspecified Essential Hypertension 12/20/2007 CARLOS INDEPENDENT DISTRIBUTOR, CAMACHO S 401.9 Unspecified Essential Hypertension 12/20/2007 TOBY GONZALEZ APRNNDA S 401.9 Unspecified Essential Hypertension 12/20/2007 TOBY GONZALEZ APRNNDA S 401.9 Unspecified Essential Hypertension 12/20/2007 SHAYLA INDEPENDENT DISTRIBUTOR, [place]ODROW A 401.9 Unspecified Essential Hypertension 12/20/2007 CARLOS INDEPENDENT DISTRIBUTOR, CAMACHO S 401.9 Unspecified Essential Hypertension 12/20/2007 SHAYLA INDEPENDENT DISTRIBUTOR, WOODROW A 401.9 Unspecified Essential Hypertension 12/20/2007 CARLOS INDEPENDENT DISTRIBUTORTOBY HernándezNDA S 401.9 Unspecified Essential Hypertension 12/20/2007 CARLOS INDEPENDENT DISTRIBUTOR, CAMACHO S 401.9 Unspecified Essential Hypertension 12/20/2007 [...] 12/26/2007 401.1 HYPERTENSION, BENIGN ESSENTIAL 12/26/2007 CARLOS INDEPENDENT DISTRIBUTOR, CAMACHO S 272.4 HYPERLIPIDEMIA UNSPECIFIED 12/26/2007 CARLOS INDEPENDENT DISTRIBUTOR, CAMACHO S 401.1 HYPERTENSION, BENIGN ESSENTIAL 12/26/2007 CARLOS INDEPENDENT DISTRIBUTOR, CAMACHO S 272.4 HYPERLIPIDEMIA UNSPECIFIED 12/26/2007 CARLOS INDEPENDENT DISTRIBUTOR, CAMACHO S 401.1 HYPERTENSION, BENIGN ESSENTIAL 12/26/2007 CARLOS INDEPENDENT DISTRIBUTOR, CAMACHO S 272.4 HYPERLIPIDEMIA UNSPECIFIED 12/26/2007 CARLOS INDEPENDENT DISTRIBUTOR, CAMACHO S 401.1 HYPERTENSION, BENIGN ESSENTIAL 12/26/2007 SHAYLA INDEPENDENT DISTRIBUTOR, WOODROW A 272.4 HYPERLIPIDEMIA UNSPECIFIED 12/26/2007 SHAYLA INDEPENDENT DISTRIBUTOR, WOODROW A 401.1 HYPERTENSION, BENIGN ESSENTIAL 12/26/2007 CARLOS INDEPENDENT DISTRIBUTOR, CAMACHO S 272.4 HYPERLIPIDEMIA UNSPECIFIED 12/26/2007 CARLOS INDEPENDENT DISTRIBUTOR, CAMACHO S 401.1 HYPERTENSION, BENIGN ESSENTIAL 12/26/2007 SHAYLA INDEPENDENT DISTRIBUTOR, WOODROW A 272.4 HYPERLIPIDEMIA UNSPECIFIED 12/26/2007 SHAYLA INDEPENDENT DISTRIBUTOR, WOODROW A 401.1 HYPERTENSION, BENIGN ESSENTIAL 12/26/2007 CARLOS INDEPENDENT DISTRIBUTOR, CAMACHO S 272.4 HYPERLIPIDEMIA UNSPECIFIED 12/26/2007 CARLOS INDEPENDENT DISTRIBUTOR, CAMACHO S 401.1 HYPERTENSION, BENIGN ESSENTIAL 12/26/2007 CARLOS INDEPENDENT DISTRIBUTOR, CAMACHO S 272.4 HYPERLIPIDEMIA UNSPECIFIED 12/26/2007 CARLOS INDEPENDENT DISTRIBUTOR, CAMACHO S 401.1 HYPERTENSION, BENIGN ESSENTIAL 12/26/2007 CARLOS INDEPENDENT DISTRIBUTOR, CAMACHO S 272.4 HYPERLIPIDEMIA UNSPECIFIED 12/26/2007 CARLOS INDEPENDENT DISTRIBUTOR, CAMACHO S 401.1 HYPERTENSION, BENIGN ESSENTIAL 12/26/2007 CARLOS INDEPENDENT DISTRIBUTOR, CAMACHO S 272.4 HYPERLIPIDEMIA UNSPECIFIED 12/26/2007 CARLOS INDEPENDENT DISTRIBUTOR, CAMACHO S 401.1 HYPERTENSION, BENIGN ESSENTIAL 01/09/2008 [...] S V72.31 Routine Gynecological Examination 01/09/2008 CARLOS INDEPENDENT DISTRIBUTOR, CAMACHO S 719.47 Pain In Joint Involving [...] 789.00 Abdominal Pain Unspecified Site 05/17/2008 SHAYLA INDEPENDENT DISTRIBUTOR, WOODROW A 599.7 HEMATURIA 05/17/2008 SHAYLA INDEPENDENT DISTRIBUTOR, WOODROW A 789.00 Abdominal Pain Unspecified Site 05/17/2008 CARLOS HICKMAN, CAMACHO S 599.7 HEMATURIA 05/17/2008 CARLOS INDEPENDENT DISTRIBUTOR, CAMACHO S 789.00 Abdominal Pain Unspecified Site 05/17/2008 SHAYLA INDEPENDENT DISTRIBUTOR, WOODROW A 599.7 HEMATURIA 05/17/2008 SHAYLA INDEPENDENT DISTRIBUTOR, WOODROW A 789.00 Abdominal Pain Unspecified Site 05/17/2008 CARLOS HICKMAN, CAMACHO S 599.7 HEMATURIA 05/17/2008 CARLOS ANDERSONN, CAMACHO S 789.00 Abdominal Pain Unspecified Site 05/17/2008 CARLOS INDEPENDENT DISTRIBUTOR, CAMACHO S 599.7 HEMATURIA 05/17/2008 CARLOS INDEPENDENT DISTRIBUTOR, CAMACHO S 789.00 Abdominal Pain Unspecified Site 05/17/2008 CARLOS INDEPENDENT DISTRIBUTOR, CAMACHO S 599.7 HEMATURIA 05/17/2008 CARLOS INDEPENDENT DISTRIBUTOR, CAMACHO S 789.00 Abdominal Pain Unspecified Site 05/17/2008 CARLOS INDEPENDENT DISTRIBUTOR, CAMACHO S 599.7 HEMATURIA 05/17/2008 CARLOS INDEPENDENT DISTRIBUTOR, CAMACHO S 789.00 Abdominal Pain Unspecified Site 08/30/2009 477.9 Allergic Rhinitis, Cause Unspecified 08/30/2009 CARLOS INDEPENDENT DISTRIBUTOR, CAMACHO S 477.9 Allergic Rhinitis, Cause Unspecified 08/30/2009 477.9 Allergic Rhinitis, Cause Unspecified 08/30/2009 477.9 Allergic Rhinitis, Cause Unspecified 08/30/2009 CARLOS INDEPENDENT DISTRIBUTOR, CAMACHO S 477.9 Allergic Rhinitis, Cause Unspecified 08/30/2009 CARLOS INDEPENDENT DISTRIBUTOR, CAMACHO S 477.9 Allergic Rhinitis, Cause Unspecified 08/30/2009 CARLOS INDEPENDENT DISTRIBUTOR, CAMACHO S 477.9 Allergic Rhinitis, Cause Unspecified 08/30/2009 SHAYLA INDEPENDENT DISTRIBUTOR, WOODROW A 477.9 Allergic Rhinitis, Cause Unspecified 08/30/2009 CARLOS INDEPENDENT DISTRIBUTOR, CAMACHO S 477.9 Allergic Rhinitis, Cause Unspecified 08/30/2009 SHAYLA INDEPENDENT DISTRIBUTOR, WOODROW A 477.9 Allergic Rhinitis, Cause Unspecified 08/30/2009 CARLOS INDEPENDENT DISTRIBUTOR, CAMACHO S 477.9 Allergic Rhinitis, Cause Unspecified 08/30/2009 CARLOS INDEPENDENT DISTRIBUTOR, CAMACHO S 477.9 Allergic Rhinitis, Cause Unspecified 08/30/2009 CARLOS INDEPENDENT DISTRIBUTOR, CAMACHO S 477.9 Allergic Rhinitis, Cause Unspecified 08/30/2009 CARLOS INDEPENDENT DISTRIBUTOR, CAMACOH S 477.9 Allergic Rhinitis, Cause Unspecified 01/19/2010 356.9 POLYNEUROPATHY 01/19/2010 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 01/19/2010 CARLOS INDEPENDENT DISTRIBUTOR, CAMACHO S 356.9 POLYNEUROPATHY 01/19/2010 CARLOS INDEPENDENT DISTRIBUTOR, CAMACHO S 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 01/19/2010 356.9 POLYNEUROPATHY 01/19/2010 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 01/19/2010 356.9 POLYNEUROPATHY 01/19/2010 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 01/19/2010 CARLOS INDEPENDENT DISTRIBUTOR, CAMACHO S 356.9 POLYNEUROPATHY 01/19/2010 CARLOS INDEPENDENT DISTRIBUTOR, CAMACHO S 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 01/19/2010 CARLOS INDEPENDENT DISTRIBUTOR, CAMACHO S 356.9 POLYNEUROPATHY 01/19/2010 CARLOS INDEPENDENT DISTRIBUTOR, CAMACHO S 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 01/19/2010 CARLOS INDEPENDENT DISTRIBUTOR, CAMACHO S 356.9 POLYNEUROPATHY 01/19/2010 CARLOS INDEPENDENT DISTRIBUTOR, CAMACHO S 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 01/19/2010 SHAYLA INDEPENDENT DISTRIBUTOR, WOODROW A 356.9 POLYNEUROPATHY 01/19/2010 SHAYLA INDEPENDENT DISTRIBUTOR, WOODROW A 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 01/19/2010 CARLOS INDEPENDENT DISTRIBUTOR, CAMACHO S 356.9 POLYNEUROPATHY 01/19/2010 CARLOS INDEPENDENT DISTRIBUTOR, CAMACHO S 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 01/19/2010 SHAYLA INDEPENDENT DISTRIBUTOR, WOODROW A 356.9 POLYNEUROPATHY 01/19/2010 SHAYLA INDEPENDENT DISTRIBUTOR, WOODROW A 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 01/19/2010 CARLOS INDEPENDENT DISTRIBUTOR, CAMACHO S 356.9 POLYNEUROPATHY 01/19/2010 CARLOS INDEPENDENT DISTRIBUTOR, CAMACHO S 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 01/19/2010 CARLOS INDEPENDENT DISTRIBUTOR, CAMACHO S 356.9 POLYNEUROPATHY 01/19/2010 CARLOS INDEPENDENT DISTRIBUTOR, CAMACHO S 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 01/19/2010 CARLOS INDEPENDENT DISTRIBUTOR, CAMACHO S 356.9 POLYNEUROPATHY 01/19/2010 CARLOS INDEPENDENT DISTRIBUTOR, CAMACHO S 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 01/19/2010 CARLOS INDEPENDENT DISTRIBUTOR, CAMACHO S 356.9 POLYNEUROPATHY 01/19/2010 CARLOS INDEPENDENT DISTRIBUTOR, CAMACHO S 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 01/23/2011 599.0 URINARY TRACT INFECTION SITE NOT SPECIFIED 01/23/2011 CARLOS INDEPENDENT DISTRIBUTOR, CAMACHO S 599.0 URINARY TRACT INFECTION SITE NOT SPECIFIED 01/23/2011 599.0 URINARY TRACT INFECTION SITE NOT SPECIFIED 01/23/2011 599.0 URINARY TRACT INFECTION SITE NOT SPECIFIED 01/23/2011 CARLOS INDEPENDENT DISTRIBUTOR, CAMACHO S 599.0 URINARY TRACT INFECTION SITE NOT SPECIFIED 01/23/2011 CARLOS INDEPENDENT DISTRIBUTOR, CAMACHO S 599.0 URINARY TRACT INFECTION SITE NOT SPECIFIED 01/23/2011 CARLOS INDEPENDENT DISTRIBUTOR, CAMACHO S 599.0 URINARY TRACT INFECTION SITE NOT SPECIFIED 01/23/2011 SHAYLA INDEPENDENT DISTRIBUTOR, WOODROW A 599.0 URINARY TRACT INFECTION SITE NOT SPECIFIED 01/23/2011 CARLOS INDEPENDENT DISTRIBUTOR, CAMACHO S 599.0 URINARY TRACT INFECTION SITE NOT SPECIFIED 01/23/2011 SHAYLA INDEPENDENT DISTRIBUTOR, WOODROW A 599.0 URINARY TRACT INFECTION SITE NOT SPECIFIED 01/23/2011 CARLOS INDEPENDENT DISTRIBUTOR, CAMACHO S 599.0 URINARY TRACT INFECTION SITE NOT SPECIFIED 01/23/2011 CARLOS INDEPENDENT DISTRIBUTOR, CAMACHO S 599.0 URINARY TRACT INFECTION SITE NOT SPECIFIED 01/23/2011 CARLOS INDEPENDENT DISTRIBUTOR, CAMACHO S 599.0 URINARY TRACT INFECTION SITE NOT SPECIFIED 01/23/2011 CARLOS INDEPENDENT DISTRIBUTOR, CAMACHO S 599.0 URINARY TRACT INFECTION SITE NOT SPECIFIED 02/13/2012 724.2 BACK PAIN, LOWER 02/13/2012 728.85 MUSCLE SPASM 02/13/2012 CARLOS INDEPENDENT DISTRIBUTOR, CAMACHO S 724.2 BACK PAIN, LOWER 02/13/2012 CARLOS INDEPENDENT DISTRIBUTOR, CAMACHO S 728.85 MUSCLE SPASM 02/13/2012 724.2 BACK PAIN, LOWER 02/13/2012 728.85 MUSCLE SPASM 02/13/2012 724.2 BACK PAIN, LOWER 02/13/2012 728.85 MUSCLE SPASM 02/13/2012 CARLOS INDEPENDENT DISTRIBUTOR, CAMACHO S 724.2 BACK PAIN, LOWER 02/13/2012 CARLOS INDEPENDENT DISTRIBUTOR, CAMACHO S 728.85 MUSCLE SPASM 02/13/2012 CARLOS INDEPENDENT DISTRIBUTOR, CAMACHO S 724.2 BACK PAIN, LOWER 02/13/2012 CARLOS INDEPENDENT DISTRIBUTOR, CAMACHO S 728.85 MUSCLE SPASM 02/13/2012 CARLOS INDEPENDENT DISTRIBUTOR, ACMACHO S 724.2 BACK PAIN, LOWER 02/13/2012 CARLOS INDEPENDENT DISTRIBUTOR, CAMACHO S 728.85 MUSCLE SPASM 02/13/2012 SHAYLA INDEPENDENT DISTRIBUTOR, WOODROW A 724.2 BACK PAIN, LOWER 02/13/2012 SHAYLA INDEPENDENT DISTRIBUTOR, [place]ODROW A 728.85 MUSCLE SPASM 02/13/2012 CARLOS INDEPENDENT DISTRIBUTOR, CAMACHO S 724.2 BACK PAIN, LOWER 02/13/2012 CARLOS INDEPENDENT DISTRIBUTOR, CAMACHO S 728.85 MUSCLE SPASM 02/13/2012 SHAYLA INDEPENDENT DISTRIBUTOR, WOODROW A 724.2 BACK PAIN, LOWER 02/13/2012 SHAYLA INDEPENDENT DISTRIBUTOR, [place]ODROW A 728.85 MUSCLE SPASM 02/13/2012 CARLOS INDEPENDENT DISTRIBUTOR, CAMACHO S 724.2 BACK PAIN, LOWER 02/13/2012 CARLOS INDEPENDENT DISTRIBUTOR, CAMACHO S 728.85 MUSCLE SPASM 02/13/2012 CARLOS INDEPENDENT DISTRIBUTOR, CAMACHO S 724.2 BACK PAIN, LOWER 02/13/2012 CARLOS INDEPENDENT DISTRIBUTOR, CAMACHO S 728.85 MUSCLE SPASM 02/13/2012 CARLOS INDEPENDENT DISTRIBUTOR, CAMACHO S 724.2 BACK PAIN, LOWER 02/13/2012 CARLOS INDEPENDENT DISTRIBUTOR, CAMACHO S 728.85 MUSCLE SPASM 02/13/2012 CARLOS INDEPENDENT DISTRIBUTOR, CAMACHO S 724.2 BACK PAIN, LOWER 02/13/2012 CARLOS INDEPENDENT DISTRIBUTOR, CAMACHO S 728.85 MUSCLE SPASM 12/03/2012 578.1 BLOOD IN STOOL 12/03/2012 578.1 BLOOD IN STOOL 12/03/2012 CARLOS INDEPENDENT DISTRIBUTOR, CAMACHO S 578.1 BLOOD IN STOOL 12/03/2012 CARLOS INDEPENDENT DISTRIBUTOR, CAMACHO S 578.1 BLOOD IN STOOL 12/03/2012 CARLOS INDEPENDENT DISTRIBUTOR CAMACHO S 578.1 BLOOD IN STOOL 12/03/2012 SHAYLA INDEPENDENT DISTRIBUTOR, [place]ODROW A 578.1 BLOOD IN STOOL 12/03/2012 TOBY GONZALEZ APRNNDA S 578.1 BLOOD IN STOOL 12/03/2012 SHAYLA INDEPENDENT DISTRIBUTOR, [place]ROW A 578.1 BLOOD IN STOOL 12/03/2012 [...] OF SKIN AND SUBCUTANEOUS TISSUE 01/23/2013 SHAYLA INDEPENDENT DISTRIBUTOR, [place]ODROW A 709.9 UNSPECIFIED DISORDER OF SKIN AND SUBCUTANEOUS TISSUE 01/23/2013 TOBY GONZALEZ APRNNDA S 709.9 UNSPECIFIED DISORDER OF SKIN AND SUBCUTANEOUS TISSUE 01/23/2013 SHAYLA INDEPENDENT DISTRIBUTOR, [place]ODROW A 709.9 UNSPECIFIED DISORDER OF SKIN [...] S 389.9 HEARING LOSS UNSPEC 04/09/2013 SHAYLA INDEPENDENT DISTRIBUTOR, [place]ODROW A 389.9 HEARING LOSS UNSPEC 04/09/2013 CARLOS INDEPENDENT DISTRIBUTOR, CAMACHO S 389.9 HEARING LOSS UNSPEC 04/09/2013 SHAYLA INDEPENDENT DISTRIBUTOR, [place]ODROW A 389.9 HEARING LOSS UNSPEC 04/09/2013 CARLOS INDEPENDENT DISTRIBUTOR, CAMACHO S 389.9 HEARING LOSS UNSPEC 04/09/2013 CARLOS INDEPENDENT DISTRIBUTOR, CAMACHO S 389.9 HEARING LOSS UNSPEC 04/09/2013 CARLOS INDEPENDENT DISTRIBUTOR, CAMACHO S 389.9 HEARING LOSS UNSPEC 04/09/2013 CARLOS INDEPENDENT DISTRIBUTOR, CAMACHO S 389.9 HEARING LOSS UNSPEC 06/10/2013 CARLOS HICKMAN, CAMACHO S 790.29 OTHER ABNORMAL GLUCOSE 06/10/2013 CARLOS HICKMAN, CAMACHO S 790.29 OTHER ABNORMAL GLUCOSE 06/10/2013 SHAYLA INDEPENDENT DISTRIBUTOR, [place]ODROW A 790.29 OTHER ABNORMAL GLUCOSE 06/10/2013 [...] A V76.10 BREAST CANCER SCREENING 06/13/2013 CARLOS IHCKMAN CAMACHO S V76.10 BREAST CANCER SCREENING 06/13/2013 SHAYLA INDEPENDENT DISTRIBUTOR, [place]ROW A V76.10 BREAST CANCER SCREENING 06/13/2013 TOBY GONZALEZ APRNNDA S V76.10 BREAST CANCER SCREENING 06/13/2013 TOBY GONZALEZ APRNNDA S V76.10 BREAST CANCER SCREENING 06/13/2013 CARLOS INDEPENDENT DISTRIBUTOR, CAMACHO S V76.10 BREAST CANCER SCREENING 06/13/2013 CARLOS INDEPENDENT DISTRIBUTOR, CAMACHO S V76.10 BREAST CANCER SCREENING 06/17/2013 CARLOS INDEPENDENT DISTRIBUTOR, CAMACHO S 250.00 DIABETES MELLITUS TYPE 2 06/17/2013 SHAYLA INDEPENDENT DISTRIBUTOR, [place]ODROW A 250.00 DIABETES MELLITUS TYPE 2 06/17/2013 CARLOS INDEPENDENT DISTRIBUTOR, CAMACHO S 250.00 DIABETES MELLITUS TYPE 2 06/17/2013 SHAYLA INDEPENDENT DISTRIBUTOR, WOODROW A 250.00 DIABETES MELLITUS TYPE 2 06/17/2013 CARLOS INDEPENDENT DISTRIBUTOR, CAMACHO S 250.00 DIABETES MELLITUS TYPE 2 06/17/2013 CARLOS INDEPENDENT DISTRIBUTOR, CAMACHO S 250.00 DIABETES MELLITUS TYPE 2 06/17/2013 CARLOS INDEPENDENT DISTRIBUTOR, CAMACHO S 250.00 DIABETES MELLITUS TYPE 2 06/17/2013 CARLOS INDEPENDENT DISTRIBUTOR, CAMACHO S 250.00 DIABETES MELLITUS TYPE 2 06/25/2013 SHAYLA INDEPENDENT DISTRIBUTOR, [place]ODROW A V65.49 OTHER SPECIFIED COUNSELING 06/25/2013 SHAYLA INDEPENDENT DISTRIBUTOR, [place]ODROW A V72.31 SUGAR TRUCKER EXAM, ROUTINE 06/25/2013 SHAYLA INDEPENDENT DISTRIBUTOR, [place]ODROW A V76.51 COLON CANCER SCREENING 06/25/2013 CARLOS INDEPENDENT DISTRIBUTOR, CAMACHO S V65.49 OTHER SPECIFIED COUNSELING 06/25/2013 CARLOS INDEPENDENT DISTRIBUTOR, CAMACHO S V72.31 SUGAR TRUCKER EXAM, ROUTINE 06/25/2013 CARLOS INDEPENDENT DISTRIBUTOR, CAMACHO S V76.51 COLON CANCER SCREENING 06/25/2013 SHAYLA INDEPENDENT DISTRIBUTOR, [place]ROW A V65.49 OTHER SPECIFIED COUNSELING 06/25/2013 SHAYLA INDEPENDENT DISTRIBUTOR, [place]ODROW A V72.31 SUGAR TRUCKER EXAM, ROUTINE 06/25/2013 SHAYLA INDEPENDENT DISTRIBUTOR, [place]ODROW A V76.51 COLON CANCER SCREENING 06/25/2013 CARLOS INDEPENDENT DISTRIBUTOR, CAMACHO S V65.49 OTHER SPECIFIED COUNSELING 06/25/2013 CARLOS INDEPENDENT DISTRIBUTOR, CAMACHO S V72.31 SUGAR TRUCKER EXAM, ROUTINE 06/25/2013 CARLOS INDEPENDENT DISTRIBUTOR, CAMACHO S V76.51 COLON CANCER SCREENING 06/25/2013 CARLOS INDEPENDENT DISTRIBUTOR, CAMACHO S V65.49 OTHER SPECIFIED COUNSELING 06/25/2013 CARLOS INDEPENDENT DISTRIBUTOR, CAMACHO S V72.31 SUGAR TRUCKER EXAM, ROUTINE 06/25/2013 CARLOS INDEPENDENT DISTRIBUTOR, CAMACHO S V76.51 COLON CANCER SCREENING 06/25/2013 CARLOS INDEPENDENT DISTRIBUTOR, CAMACHO S V65.49 OTHER SPECIFIED COUNSELING 06/25/2013 CARLOS INDEPENDENT DISTRIBUTOR, CAMACHO S V72.31 SUGAR TRUCKER EXAM, ROUTINE 06/25/2013 CARLOS INDEPENDENT DISTRIBUTOR, CAMACHO S V76.51 COLON CANCER SCREENING 06/25/2013 CARLOS INDEPENDENT DISTRIBUTOR, CAMACHO S V65.49 OTHER SPECIFIED COUNSELING 06/25/2013 CARLOS INDEPENDENT DISTRIBUTOR, CAMACHO S V72.31 SUGAR TRUCKER EXAM, ROUTINE 06/25/2013 CARLOS INDEPENDENT DISTRIBUTOR, CAMACHO S V76.51 COLON CANCER SCREENING 09/30/2013 TOBY GONZALEZ APRNNDA S 300.4 DYSTHYMIC DISORDER 09/30/2013 CARLOS HICKMAN, CAMACHO S 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 09/30/2013 CARLOS HICKMAN, CAMACHO S 366.00 NONSENILE CATARACT UNSPECIFIED 09/30/2013 CARLOS HICKMAN, CAMACHO S 300.4 DYSTHYMIC DISORDER 09/30/2013 CARLOS HICKMAN, CAMACHO S 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 09/30/2013 CARLOS INDEPENDENT DISTRIBUTOR, CAMACHO S 366.00 NONSENILE CATARACT UNSPECIFIED 09/30/2013 CARLOS INDEPENDENT DISTRIBUTOR, CAMACHO S 300.4 DYSTHYMIC DISORDER 09/30/2013 CARLOS HICKMAN, CAMACHO S 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 09/30/2013 CARLOS INDEPENDENT DISTRIBUTOR, CAMACHO S 366.00 NONSENILE CATARACT UNSPECIFIED 09/30/2013 CARLOS INDEPENDENT DISTRIBUTOR, CAMACHO S 300.4 DYSTHYMIC DISORDER 09/30/2013 CARLOS INDEPENDENT DISTRIBUTOR, CAMACHO S 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 09/30/2013 CARLOS INDEPENDENT DISTRIBUTOR, CAMACHO S 366.00 NONSENILE CATARACT UNSPECIFIED 06/22/2014 TOBY GONZALEZ APRNNDA S 780.79 FATIGUE 08/17/2014 Ot V76.12 04/27/2015 CAMACHO GONZALEZP Ot G45.3 05/09/2015 CARLOSCAMACHO KING OB/GYN Ot G45.3 07/26/2015 CARLOSCAMACHO KING OB/GYN Ot Z12.31 2015 CARLOSCAMACHO LUNA OB/GYN Ot Z12.31 08/29/2015 CARLOSTOBYCAMACHO OB/GYN Ot Z12.31 09/28/2015 RUSS MENON MD Ot [...] Ot K21.9 GASTRO-ESOPHAGEAL REFLUX DISEASE WITHOUT 09/29/2015 RUSS MENON MD Ot Z01.818 ENCOUNTER FOR [...] LG INT W/O PERFORATION OR AB 10/13/2015 RUSS MENON MD Ot Z12.11 ENCOUNTER FOR SCREENING FOR MALIGNANT NE 08/28/2016 CAMACHO GONZALEZP Ot V76.12 OTH SCREEN MAMMO-MALIGN NEOPLASM OF EDSON 08/28/2016 Ot V76.12 OTH SCREEN MAMMO-MALIGN NEOPLASM OF EDSON 08/28/2016 CAMACHO GONZALEZ OB/GYN Ot G45.3 AMAUROSIS FUGAX 08/28/2016 CAMACHO GONZALEZ OB/GYN Ot Z12.31 ENCNTR SCREEN MAMMOGRAM FOR MALIGNANT NE 08/28/2016 CAMACHO GONZALEZP Ot Z12.31 ENCNTR SCREEN MAMMOGRAM FOR MALIGNANT NE 08/29/2016 CAMACHO GONZALEZ OB/GYN Ot Z12.31 ENCNTR SCREEN MAMMOGRAM FOR MALIGNANT NE 08/29/2016 CAMACHO GONZALEZ OB/GYN Ot Z12.31 ENCNTR SCREEN MAMMOGRAM FOR MALIGNANT NE 09/18/2016 CAMACHO GONZALEZ OB/GYN Ot Z12.31 ENCNTR SCREEN MAMMOGRAM FOR MALIGNANT NE 09/28/2016 CAMACHO GONZALEZ OB/GYN Ot Z12.31 ENCNTR SCREEN MAMMOGRAM FOR MALIGNANT NE Procedures Code Description [place] [address] ROUTINE VENIPUNCTURE 04/21/2012 71218 CBC 04/21/2012 24127 CMP 04/21/2012 57712 LIPID PANEL 04/21 2242018 GFR CALC (RESULT ONLY) 04/21/2012 04239 ROUTINE VENIPUNCTURE 06/10/2013 44701 MAMMOGRAM, SCREENING 06/10/[id number] GFR CALC (RESULT ONLY) 06/10/2013 92547 CMP 06/10/2013 91435 LIPID PANEL 06/10 29479 INSULIN LEVEL 15203 A1C (IN-HOUSE) 70253 HEMOCCULT 2013 85004 MICRO ALBUMIN-IN HOUSE 11/04/2013 Results Test Result [...] Status Pt. Type Provider Facility Loc./Unit Complaint [id number] 06/22/2014 08:35:00 06/22/2014 23: 59:59 CLS Outpatient CARLOS INDEPENDENT DISTRIBUTORTOBYCAMACHO S [id number] 11/04/2013 13:34:00 11/04/2013 23: 59:59 CLS Outpatient CARLOS INDEPENDENT DISTRIBUTORTOBYCAMACHO S [id number] 11/04/2013 13:34:00 11/04/2013 23: 59:59 CLS Outpatient CARLOS INDEPENDENT DISTRIBUTORTOBYCAMACHO S [id number] 09/30/2013 08:42:00 09/30/2013 23: 59:59 CLS Outpatient CARLOS INDEPENDENT DISTRIBUTORTOBYCAMACHO S [id number] 06/25/2013 10:33:00 06/25/2013 23: 59:59 CLS Outpatient SHAYLA MARYLOU, [place] A [id number] 06/25/2013 10:33:00 06/25/2013 23: 59:59 CLS Outpatient SHAYLA APRN, [place] A [id number] 06/15/2013 08:59:00 06/15/2013 23: 59:59 CLS Outpatient CARLOS INDEPENDENT DISTRIBUTORTOBYCAMACHO S [id number] 06/10/2013 09:15:00 06/10/2013 23: 59:59 CLS Outpatient CARLOS INDEPENDENT DISTRIBUTORTOBYCAMACHO S [id number] 06/10/2013 09:15:00 06/10/2013 23: 59:59 CLS Outpatient CARLOS INDEPENDENT DISTRIBUTOR, CAM[place]O S [id number] 04/09/2013 17:59:00 04/09/2013 23: 59:59 CLS Outpatient CARLOS INDEPENDENT DISTRIBUTORTOBYCAMACHO S [id number] 04/21/2012 11:24:00 04/21/2012 23: 59:59 CLS Outpatient [id number] 04/21/2012 11:24:00 04/21/2012 23: 59:59 CLS Outpatient CARLOS INDEPENDENT DISTRIBUTOR, CAMACHO S [id number] 01/23/2013 14:32:00 Document Registration [id number] 12/03/2012 13:33:00 Document Registration
[2016-11-27] MEDS ORDERED: CYCL10TA9 PO ×2 (14:15)
[2016-11-27] MEDS ORDERED: SIMV20TA3 PO ×2 (14:15)
[2016-11-27] MEDS ORDERED: TRAM50TA2 PO ×2 (14:15)
[2016-11-27] MEDS ORDERED: OMEP20CA12 PO ×2 (14:15)
== END 2016-11-24 11:00 | disposition home or self-care (01) ==
LOC: EDUNIT# 07:26 → ER 07:27
DX: Z79.84 Long term (current) use of oral hypoglycemic drugs; E11.9 Type 2 diabetes mellitus without complications; Z90.710 Acquired absence of both cervix and uterus; I10 Essential (primary) hypertension; N39.0 Urinary tract infection, site not specified; N20.1 Calculus of ureter
CPT/HCPCS: 36415; 74022; 74177; 80053; 81000; 82150; 83605; 83690; 83735; 85025; 85610; 85730; 87040; 87088; 93041; 96365; 96375

== ENCOUNTER 2016-11-27 05:41 | Outpatient (CLI) | payer MEDICARE, MEDICAID ==
[~2016-11-27] VITALS: Ht 170.2 cm; Wt 98.9 kg
[~2016-11-27 05:41] MED LIST changes: +CIPR-225 PO; +HYDR-87 PO; +NITR-65 PO; +ONDA4TAB8 PO; +TAMS0.4C98 PO
[2016-11-27] MEDS ORDERED: SIMV20TA3 PO (14:15)
[2016-11-27] MEDS ORDERED: OMEP20CA12 PO (14:15)
[2016-11-27] MEDS ORDERED: TRAM50TA2 PO (14:15)
[2016-11-27] MEDS ORDERED: CYCL10TA9 PO (14:15)
[2016-11-28] MEDS ORDERED: HYDR-3876 PO (12:22)
[2016-11-28] MEDS ORDERED: TAMS0.4C98 PO (12:22)
[2016-11-28] MEDS ORDERED: NITR-65 PO (12:22)
== END 2016-11-27 14:20 ==
LOC: PREOP 05:41
PROVIDERS: ATTEND Urology
DX: Z01.818 Encounter for other preprocedural examination (principal); N20.1 Calculus of ureter

== ENCOUNTER 2016-11-28 08:25 | Day surgery (SDC) | payer MEDICARE, MEDICAID ==
[~2016-11-28] VITALS: Ht 170.2 cm; Wt 98.9 kg
[~2016-11-28 08:25] MED LIST changes: +CYCL10TA9 PO; +OMEP20CA12 PO; +SIMV20TA3 PO; +TRAM50TA2 PO
--- OUTSIDE RECORDS SUMMARY | 2016-11-28 08:29 | XMS REPORT | Continuity of Care Document ---
Author Author [facility] Organization [facility] Address Unknown Phone Unavailable Care Team Providers Care Manager Ethics Name Role Phone Arturo Deleon PCP [phone] Source Comments Some departments are not documenting in the electronic medical record. If you do not see the information that you expected, contact Release of Information in the Health Information Management department at [phone] for further assistance in locating additional records.[facility] Active Allergies and Adverse Reactions Not [...]
--- OUTSIDE RECORDS SUMMARY | 2016-11-28 08:32 | XMS REPORT | Continuity of Care Document ---
Author Author [facility] Address Unknown Phone Unavailable Allergies Active Description Code Type Severity Reaction Onset Reported/Identified Relationship to Patient Clinical Status Yes gabapentin Drug Allergy 10/09/2010 Yes gabapentin Drug Allergy N/A N/A 10/09/2010 Yes No Known Drug Allergies [id number] Drug Allergy Unknown N/ A 09/30/2015 Medications Problems Date Dx Coded Attending Type Code Diagnosis Diagnosed By 12/20/2007 401.9 Unspecified Essential Hypertension 12/20/2007 CARLOS HICKMAN CAMACHO S 401.9 Unspecified Essential Hypertension 12/20/2007 401.9 Unspecified Essential Hypertension 12/20/2007 401.9 Unspecified Essential Hypertension 12/20/2007 CARLOS CIGARETTE PACKAGE EXAMINER, CAMACHO S 401.9 Unspecified Essential Hypertension 12/20/2007 TOBY GONZALEZ APRNNDA S 401.9 Unspecified Essential Hypertension 12/20/2007 TOBY GONZALEZ APRNNDA S 401.9 Unspecified Essential Hypertension 12/20/2007 SHAYLA CIGARETTE PACKAGE EXAMINER, WOODROW A 401.9 Unspecified Essential Hypertension 12/20/2007 CARLOS CIGARETTE PACKAGE EXAMINER, CAMACHO S 401.9 Unspecified Essential Hypertension 12/20/2007 SHAYLA CIGARETTE PACKAGE EXAMINER, WOODROW A 401.9 Unspecified Essential Hypertension 12/20/2007 CARLOS CIGARETTE PACKAGE EXAMINERTOBY HernándezNDA S 401.9 Unspecified Essential Hypertension 12/20/2007 CARLOS CIGARETTE PACKAGE EXAMINER, CAMACHO S 401.9 Unspecified Essential Hypertension 12/20/2007 [...] 12/26/2007 401.1 HYPERTENSION, BENIGN ESSENTIAL 12/26/2007 CARLOS CIGARETTE PACKAGE EXAMINER, CAMACHO S 272.4 HYPERLIPIDEMIA UNSPECIFIED 12/26/2007 CARLOS CIGARETTE PACKAGE EXAMINER, CAMACHO S 401.1 HYPERTENSION, BENIGN ESSENTIAL 12/26/2007 CARLOS CIGARETTE PACKAGE EXAMINER, CAMACHO S 272.4 HYPERLIPIDEMIA UNSPECIFIED 12/26/2007 CARLOS CIGARETTE PACKAGE EXAMINER, CAMACHO S 401.1 HYPERTENSION, BENIGN ESSENTIAL 12/26/2007 CARLOS CIGARETTE PACKAGE EXAMINER, CAMACHO S 272.4 HYPERLIPIDEMIA UNSPECIFIED 12/26/2007 CARLOS CIGARETTE PACKAGE EXAMINER, CAMACHO S 401.1 HYPERTENSION, BENIGN ESSENTIAL 12/26/2007 SHAYLA CIGARETTE PACKAGE EXAMINER, WOODROW A 272.4 HYPERLIPIDEMIA UNSPECIFIED 12/26/2007 SHAYLA CIGARETTE PACKAGE EXAMINER, WOODROW A 401.1 HYPERTENSION, BENIGN ESSENTIAL 12/26/2007 CARLOS CIGARETTE PACKAGE EXAMINER, CAMACHO S 272.4 HYPERLIPIDEMIA UNSPECIFIED 12/26/2007 CARLOS CIGARETTE PACKAGE EXAMINER, CAMACHO S 401.1 HYPERTENSION, BENIGN ESSENTIAL 12/26/2007 SHAYLA CIGARETTE PACKAGE EXAMINER, WOODROW A 272.4 HYPERLIPIDEMIA UNSPECIFIED 12/26/2007 SHAYLA CIGARETTE PACKAGE EXAMINER, WOODROW A 401.1 HYPERTENSION, BENIGN ESSENTIAL 12/26/2007 CARLOS CIGARETTE PACKAGE EXAMINER, CAMACHO S 272.4 HYPERLIPIDEMIA UNSPECIFIED 12/26/2007 CARLOS CIGARETTE PACKAGE EXAMINER, CAMACHO S 401.1 HYPERTENSION, BENIGN ESSENTIAL 12/26/2007 CARLOS CIGARETTE PACKAGE EXAMINER, CAMACHO S 272.4 HYPERLIPIDEMIA UNSPECIFIED 12/26/2007 CARLOS CIGARETTE PACKAGE EXAMINER, CAMACHO S 401.1 HYPERTENSION, BENIGN ESSENTIAL 12/26/2007 CARLOS CIGARETTE PACKAGE EXAMINER, CAMACHO S 272.4 HYPERLIPIDEMIA UNSPECIFIED 12/26/2007 CARLOS CIGARETTE PACKAGE EXAMINER, CAMACHO S 401.1 HYPERTENSION, BENIGN ESSENTIAL 12/26/2007 CARLOS CIGARETTE PACKAGE EXAMINER, CAMACHO S 272.4 HYPERLIPIDEMIA UNSPECIFIED 12/26/2007 CARLOS CIGARETTE PACKAGE EXAMINER, CAMACHO S 401.1 HYPERTENSION, BENIGN ESSENTIAL 01/09/2008 [...] S V72.31 Routine Gynecological Examination 01/09/2008 CARLOS CIGARETTE PACKAGE EXAMINER, CAMACHO S 719.47 Pain In Joint Involving [...] 789.00 Abdominal Pain Unspecified Site 05/17/2008 SHAYLA CIGARETTE PACKAGE EXAMINER, WOODROW A 599.7 HEMATURIA 05/17/2008 SHAYLA CIGARETTE PACKAGE EXAMINER, WOODROW A 789.00 Abdominal Pain Unspecified Site 05/17/2008 CARLOS HICKMAN, CAMACHO S 599.7 HEMATURIA 05/17/2008 CARLOS CIGARETTE PACKAGE EXAMINER, CAMACHO S 789.00 Abdominal Pain Unspecified Site 05/17/2008 SHAYLA CIGARETTE PACKAGE EXAMINER, WOODROW A 599.7 HEMATURIA 05/17/2008 SHAYLA CIGARETTE PACKAGE EXAMINER, WOODROW A 789.00 Abdominal Pain Unspecified Site 05/17/2008 CARLOS HICKMAN, CAMACHO S 599.7 HEMATURIA 05/17/2008 CARLOS ANDERSONN, CAMACHO S 789.00 Abdominal Pain Unspecified Site 05/17/2008 CARLOS CIGARETTE PACKAGE EXAMINER, CAMACHO S 599.7 HEMATURIA 05/17/2008 CARLOS CIGARETTE PACKAGE EXAMINER, CAMACHO S 789.00 Abdominal Pain Unspecified Site 05/17/2008 CARLOS CIGARETTE PACKAGE EXAMINER, CAMACHO S 599.7 HEMATURIA 05/17/2008 CARLOS CIGARETTE PACKAGE EXAMINER, CAMACHO S 789.00 Abdominal Pain Unspecified Site 05/17/2008 CARLOS CIGARETTE PACKAGE EXAMINER, CAMACHO S 599.7 HEMATURIA 05/17/2008 CARLOS CIGARETTE PACKAGE EXAMINER, CAMACHO S 789.00 Abdominal Pain Unspecified Site 08/30/2009 477.9 Allergic Rhinitis, Cause Unspecified 08/30/2009 CARLOS CIGARETTE PACKAGE EXAMINER, CAMACHO S 477.9 Allergic Rhinitis, Cause Unspecified 08/30/2009 477.9 Allergic Rhinitis, Cause Unspecified 08/30/2009 477.9 Allergic Rhinitis, Cause Unspecified 08/30/2009 CARLOS CIGARETTE PACKAGE EXAMINER, CAMACHO S 477.9 Allergic Rhinitis, Cause Unspecified 08/30/2009 CARLOS CIGARETTE PACKAGE EXAMINER, CAMACHO S 477.9 Allergic Rhinitis, Cause Unspecified 08/30/2009 CARLOS CIGARETTE PACKAGE EXAMINER, CAMACHO S 477.9 Allergic Rhinitis, Cause Unspecified 08/30/2009 SHAYLA CIGARETTE PACKAGE EXAMINER, WOODROW A 477.9 Allergic Rhinitis, Cause Unspecified 08/30/2009 CARLOS CIGARETTE PACKAGE EXAMINER, CAMACHO S 477.9 Allergic Rhinitis, Cause Unspecified 08/30/2009 SHAYLA CIGARETTE PACKAGE EXAMINER, WOODROW A 477.9 Allergic Rhinitis, Cause Unspecified 08/30/2009 CARLOS CIGARETTE PACKAGE EXAMINER, CAMACHO S 477.9 Allergic Rhinitis, Cause Unspecified 08/30/2009 CARLOS CIGARETTE PACKAGE EXAMINER, CAMACHO S 477.9 Allergic Rhinitis, Cause Unspecified 08/30/2009 CARLOS CIGARETTE PACKAGE EXAMINER, CAMACHO S 477.9 Allergic Rhinitis, Cause Unspecified 08/30/2009 CARLOS CIGARETTE PACKAGE EXAMINER, CAMACHO S 477.9 Allergic Rhinitis, Cause Unspecified 01/19/2010 356.9 POLYNEUROPATHY 01/19/2010 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 01/19/2010 CARLOS CIGARETTE PACKAGE EXAMINER, CAMACHO S 356.9 POLYNEUROPATHY 01/19/2010 CARLOS CIGARETTE PACKAGE EXAMINER, CAMACHO S 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 01/19/2010 356.9 POLYNEUROPATHY 01/19/2010 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 01/19/2010 356.9 POLYNEUROPATHY 01/19/2010 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 01/19/2010 CARLOS CIGARETTE PACKAGE EXAMINER, CAMACHO S 356.9 POLYNEUROPATHY 01/19/2010 CARLOS CIGARETTE PACKAGE EXAMINER, CAMACHO S 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 01/19/2010 CARLOS CIGARETTE PACKAGE EXAMINER, CAMACHO S 356.9 POLYNEUROPATHY 01/19/2010 CARLOS CIGARETTE PACKAGE EXAMINER, CAMACHO S 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 01/19/2010 CARLOS CIGARETTE PACKAGE EXAMINER, CAMACHO S 356.9 POLYNEUROPATHY 01/19/2010 CARLOS CIGARETTE PACKAGE EXAMINER, CAMACHO S 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 01/19/2010 SHAYLA CIGARETTE PACKAGE EXAMINER, WOODROW A 356.9 POLYNEUROPATHY 01/19/2010 SHAYLA CIGARETTE PACKAGE EXAMINER, WOODROW A 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 01/19/2010 CARLOS CIGARETTE PACKAGE EXAMINER, CAMACHO S 356.9 POLYNEUROPATHY 01/19/2010 CARLOS CIGARETTE PACKAGE EXAMINER, CAMACHO S 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 01/19/2010 SHAYLA CIGARETTE PACKAGE EXAMINER, WOODROW A 356.9 POLYNEUROPATHY 01/19/2010 SHAYLA CIGARETTE PACKAGE EXAMINER, WOODROW A 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 01/19/2010 CARLOS CIGARETTE PACKAGE EXAMINER, CAMACHO S 356.9 POLYNEUROPATHY 01/19/2010 CARLOS CIGARETTE PACKAGE EXAMINER, CAMACHO S 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 01/19/2010 CARLOS CIGARETTE PACKAGE EXAMINER, CAMACHO S 356.9 POLYNEUROPATHY 01/19/2010 CARLOS CIGARETTE PACKAGE EXAMINER, CAMACHO S 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 01/19/2010 CARLOS CIGARETTE PACKAGE EXAMINER, CAMACHO S 356.9 POLYNEUROPATHY 01/19/2010 CARLOS CIGARETTE PACKAGE EXAMINER, CAMACHO S 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 01/19/2010 CARLOS CIGARETTE PACKAGE EXAMINER, CAMACHO S 356.9 POLYNEUROPATHY 01/19/2010 CARLOS CIGARETTE PACKAGE EXAMINER, CAMACHO S 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 01/23/2011 599.0 URINARY TRACT INFECTION SITE NOT SPECIFIED 01/23/2011 CARLOS CIGARETTE PACKAGE EXAMINER, CAMACHO S 599.0 URINARY TRACT INFECTION SITE NOT SPECIFIED 01/23/2011 599.0 URINARY TRACT INFECTION SITE NOT SPECIFIED 01/23/2011 599.0 URINARY TRACT INFECTION SITE NOT SPECIFIED 01/23/2011 CARLOS CIGARETTE PACKAGE EXAMINER, CAMACHO S 599.0 URINARY TRACT INFECTION SITE NOT SPECIFIED 01/23/2011 CARLOS CIGARETTE PACKAGE EXAMINER, CAMACHO S 599.0 URINARY TRACT INFECTION SITE NOT SPECIFIED 01/23/2011 CARLOS CIGARETTE PACKAGE EXAMINER, CAMACHO S 599.0 URINARY TRACT INFECTION SITE NOT SPECIFIED 01/23/2011 SHAYLA CIGARETTE PACKAGE EXAMINER, WOODROW A 599.0 URINARY TRACT INFECTION SITE NOT SPECIFIED 01/23/2011 CARLOS CIGARETTE PACKAGE EXAMINER, CAMACHO S 599.0 URINARY TRACT INFECTION SITE NOT SPECIFIED 01/23/2011 SHAYLA CIGARETTE PACKAGE EXAMINER, WOODROW A 599.0 URINARY TRACT INFECTION SITE NOT SPECIFIED 01/23/2011 CARLOS CIGARETTE PACKAGE EXAMINER, CAMACHO S 599.0 URINARY TRACT INFECTION SITE NOT SPECIFIED 01/23/2011 CARLOS CIGARETTE PACKAGE EXAMINER, CAMACHO S 599.0 URINARY TRACT INFECTION SITE NOT SPECIFIED 01/23/2011 CARLOS CIGARETTE PACKAGE EXAMINER, CAMACHO S 599.0 URINARY TRACT INFECTION SITE NOT SPECIFIED 01/23/2011 CARLOS CIGARETTE PACKAGE EXAMINER, CAMACHO S 599.0 URINARY TRACT INFECTION SITE NOT SPECIFIED 02/13/2012 724.2 BACK PAIN, LOWER 02/13/2012 728.85 MUSCLE SPASM 02/13/2012 CARLOS CIGARETTE PACKAGE EXAMINER, CAMACHO S 724.2 BACK PAIN, LOWER 02/13/2012 CARLOS CIGARETTE PACKAGE EXAMINER, CAMACHO S 728.85 MUSCLE SPASM 02/13/2012 724.2 BACK PAIN, LOWER 02/13/2012 728.85 MUSCLE SPASM 02/13/2012 724.2 BACK PAIN, LOWER 02/13/2012 728.85 MUSCLE SPASM 02/13/2012 CARLOS CIGARETTE PACKAGE EXAMINER, CAMACHO S 724.2 BACK PAIN, LOWER 02/13/2012 CARLOS CIGARETTE PACKAGE EXAMINER, CAMACHO S 728.85 MUSCLE SPASM 02/13/2012 CARLOS CIGARETTE PACKAGE EXAMINER, CAMACHO S 724.2 BACK PAIN, LOWER 02/13/2012 CARLOS CIGARETTE PACKAGE EXAMINER, CAMACHO S 728.85 MUSCLE SPASM 02/13/2012 CARLOS CIGARETTE PACKAGE EXAMINER, CAMACHO S 724.2 BACK PAIN, LOWER 02/13/2012 CARLOS CIGARETTE PACKAGE EXAMINER, CAMACHO S 728.85 MUSCLE SPASM 02/13/2012 SHAYLA CIGARETTE PACKAGE EXAMINER, WOODROW A 724.2 BACK PAIN, LOWER 02/13/2012 SHAYLA CIGARETTE PACKAGE EXAMINER, WOODROW A 728.85 MUSCLE SPASM 02/13/2012 CARLOS CIGARETTE PACKAGE EXAMINER, CAMACHO S 724.2 BACK PAIN, LOWER 02/13/2012 CARLOS CIGARETTE PACKAGE EXAMINER, CAMACHO S 728.85 MUSCLE SPASM 02/13/2012 SHAYLA CIGARETTE PACKAGE EXAMINER, WOODROW A 724.2 BACK PAIN, LOWER 02/13/2012 SHAYLA CIGARETTE PACKAGE EXAMINER, WOODROW A 728.85 MUSCLE SPASM 02/13/2012 CARLOS CIGARETTE PACKAGE EXAMINER, CAMACHO S 724.2 BACK PAIN, LOWER 02/13/2012 CARLOS CIGARETTE PACKAGE EXAMINER, CAMACHO S 728.85 MUSCLE SPASM 02/13/2012 CARLOS CIGARETTE PACKAGE EXAMINER, CAMACHO S 724.2 BACK PAIN, LOWER 02/13/2012 CARLOS CIGARETTE PACKAGE EXAMINER, CAMACHO S 728.85 MUSCLE SPASM 02/13/2012 CARLOS CIGARETTE PACKAGE EXAMINER, CAMACHO S 724.2 BACK PAIN, LOWER 02/13/2012 CARLOS CIGARETTE PACKAGE EXAMINER, CAMACHO S 728.85 MUSCLE SPASM 02/13/2012 CARLOS CIGARETTE PACKAGE EXAMINER, CAMACHO S 724.2 BACK PAIN, LOWER 02/13/2012 CARLOS CIGARETTE PACKAGE EXAMINER, CAMACHO S 728.85 MUSCLE SPASM 12/03/2012 578.1 BLOOD IN STOOL 12/03/2012 578.1 BLOOD IN STOOL 12/03/2012 CARLOS CIGARETTE PACKAGE EXAMINER, CAMACHO S 578.1 BLOOD IN STOOL 12/03/2012 CARLOS CIGARETTE PACKAGE EXAMINER, CAMACHO S 578.1 BLOOD IN STOOL 12/03/2012 CARLOS CIGARETTE PACKAGE EXAMINER CAMACHO S 578.1 BLOOD IN STOOL 12/03/2012 SHAYLA CIGARETTE PACKAGE EXAMINER, WOODROW A 578.1 BLOOD IN STOOL 12/03/2012 TOBY GONZALEZ APRNNDA S 578.1 BLOOD IN STOOL 12/03/2012 SHAYLA CIGARETTE PACKAGE EXAMINER, WOODROW A 578.1 BLOOD IN STOOL 12/03/2012 [...] OF SKIN AND SUBCUTANEOUS TISSUE 01/23/2013 SHAYLA CIGARETTE PACKAGE EXAMINER, WOODROW A 709.9 UNSPECIFIED DISORDER OF SKIN AND SUBCUTANEOUS TISSUE 01/23/2013 TOBY GONZALEZ APRNNDA S 709.9 UNSPECIFIED DISORDER OF SKIN AND SUBCUTANEOUS TISSUE 01/23/2013 SHAYLA CIGARETTE PACKAGE EXAMINER, WOODROW A 709.9 UNSPECIFIED DISORDER OF SKIN [...] S 389.9 HEARING LOSS UNSPEC 04/09/2013 SHAYLA CIGARETTE PACKAGE EXAMINER, WOODROW A 389.9 HEARING LOSS UNSPEC 04/09/2013 CARLOS CIGARETTE PACKAGE EXAMINER, CAMACHO S 389.9 HEARING LOSS UNSPEC 04/09/2013 SHAYLA CIGARETTE PACKAGE EXAMINER, WOODROW A 389.9 HEARING LOSS UNSPEC 04/09/2013 CARLOS CIGARETTE PACKAGE EXAMINER, CAMACHO S 389.9 HEARING LOSS UNSPEC 04/09/2013 CARLOS CIGARETTE PACKAGE EXAMINER, CAMACHO S 389.9 HEARING LOSS UNSPEC 04/09/2013 CARLOS CIGARETTE PACKAGE EXAMINER, CAMACHO S 389.9 HEARING LOSS UNSPEC 04/09/2013 CARLOS CIGARETTE PACKAGE EXAMINER, CAMACHO S 389.9 HEARING LOSS UNSPEC 06/10/2013 CARLOS HICKMAN, CAMACHO S 790.29 OTHER ABNORMAL GLUCOSE 06/10/2013 CARLOS HICKMAN, CAMACHO S 790.29 OTHER ABNORMAL GLUCOSE 06/10/2013 SHAYLA CIGARETTE PACKAGE EXAMINER, WOODROW A 790.29 OTHER ABNORMAL GLUCOSE 06/10/2013 CARLOS HICKMAN CAMACHO S 790.29 OTHER ABNORMAL GLUCOSE 06/10/2013 SHAYLA APRN, WOORDOW A 790.29 OTHER ABNORMAL GLUCOSE 06/10/2013 CARLOS [...] S V76.10 BREAST CANCER SCREENING 06/13/2013 SHAYLA CIGARETTE PACKAGE EXAMINER, WOODROW A V76.10 BREAST CANCER SCREENING 06/13/2013 TOBY GONZALEZ APRNNDA S V76.10 BREAST CANCER SCREENING 06/13/2013 TOBY GONZALEZ APRNNDA S V76.10 BREAST CANCER SCREENING 06/13/2013 CARLOS CIGARETTE PACKAGE EXAMINER, CAMACHO S V76.10 BREAST CANCER SCREENING 06/13/2013 CARLOS CIGARETTE PACKAGE EXAMINER, CAMACHO S V76.10 BREAST CANCER SCREENING 06/17/2013 CARLOS CIGARETTE PACKAGE EXAMINER, CAMACHO S 250.00 DIABETES MELLITUS TYPE 2 06/17/2013 SHAYLA CIGARETTE PACKAGE EXAMINER, WOODROW A 250.00 DIABETES MELLITUS TYPE 2 06/17/2013 CARLOS CIGARETTE PACKAGE EXAMINER, CAMACHO S 250.00 DIABETES MELLITUS TYPE 2 06/17/2013 SHAYLA CIGARETTE PACKAGE EXAMINER, WOODROW A 250.00 DIABETES MELLITUS TYPE 2 06/17/2013 CARLOS CIGARETTE PACKAGE EXAMINER, CAMACHO S 250.00 DIABETES MELLITUS TYPE 2 06/17/2013 CARLOS CIGARETTE PACKAGE EXAMINER, CAMACHO S 250.00 DIABETES MELLITUS TYPE 2 06/17/2013 CARLOS CIGARETTE PACKAGE EXAMINER, CAMACHO S 250.00 DIABETES MELLITUS TYPE 2 06/17/2013 CARLOS CIGARETTE PACKAGE EXAMINER, CAMACHO S 250.00 DIABETES MELLITUS TYPE 2 06/25/2013 SHAYLA CIGARETTE PACKAGE EXAMINER, WOODROW A V65.49 OTHER SPECIFIED COUNSELING 06/25/2013 SHAYLA CIGARETTE PACKAGE EXAMINER, WOODROW A V72.31 INFRASTRUCTURE DEVELOPER EXAM, ROUTINE 06/25/2013 SHAYLA CIGARETTE PACKAGE EXAMINER, WOODROW A V76.51 COLON CANCER SCREENING 06/25/2013 CARLOS CIGARETTE PACKAGE EXAMINER, CAMACHO S V65.49 OTHER SPECIFIED COUNSELING 06/25/2013 CARLOS CIGARETTE PACKAGE EXAMINER, CAMACHO S V72.31 INFRASTRUCTURE DEVELOPER EXAM, ROUTINE 06/25/2013 CARLOS CIGARETTE PACKAGE EXAMINER, CAMACHO S V76.51 COLON CANCER SCREENING 06/25/2013 SHAYLA CIGARETTE PACKAGE EXAMINER, WOODROW A V65.49 OTHER SPECIFIED COUNSELING 06/25/2013 SHAYLA CIGARETTE PACKAGE EXAMINER, WOODROW A V72.31 INFRASTRUCTURE DEVELOPER EXAM, ROUTINE 06/25/2013 SHAYLA CIGARETTE PACKAGE EXAMINER, WOODROW A V76.51 COLON CANCER SCREENING 06/25/2013 CARLOS CIGARETTE PACKAGE EXAMINER, CAMACHO S V65.49 OTHER SPECIFIED COUNSELING 06/25/2013 CARLOS CIGARETTE PACKAGE EXAMINER, CAMACHO S V72.31 INFRASTRUCTURE DEVELOPER EXAM, ROUTINE 06/25/2013 CARLOS CIGARETTE PACKAGE EXAMINER, CAMACHO S V76.51 COLON CANCER SCREENING 06/25/2013 CARLOS CIGARETTE PACKAGE EXAMINER, CAMACHO S V65.49 OTHER SPECIFIED COUNSELING 06/25/2013 CARLOS CIGARETTE PACKAGE EXAMINER, CAMACHO S V72.31 INFRASTRUCTURE DEVELOPER EXAM, ROUTINE 06/25/2013 CARLOS CIGARETTE PACKAGE EXAMINER, CAMACHO S V76.51 COLON CANCER SCREENING 06/25/2013 CARLOS CIGARETTE PACKAGE EXAMINER, CAMACHO S V65.49 OTHER SPECIFIED COUNSELING 06/25/2013 CARLOS CIGARETTE PACKAGE EXAMINER, CAMACHO S V72.31 INFRASTRUCTURE DEVELOPER EXAM, ROUTINE 06/25/2013 CARLOS CIGARETTE PACKAGE EXAMINER, CAMACHO S V76.51 COLON CANCER SCREENING 06/25/2013 CARLOS CIGARETTE PACKAGE EXAMINER, CAMACHO S V65.49 OTHER SPECIFIED COUNSELING 06/25/2013 CARLOS CIGARETTE PACKAGE EXAMINER, CAMACHO S V72.31 INFRASTRUCTURE DEVELOPER EXAM, ROUTINE 06/25/2013 CARLOS CIGARETTE PACKAGE EXAMINER, CAMACHO S V76.51 COLON CANCER SCREENING 09/30/2013 TOBY GONZALEZ APRNNDA S 300.4 DYSTHYMIC DISORDER 09/30/2013 CARLOS HICKMAN, CAMACHO S 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 09/30/2013 CARLOS HICKMAN, CAMACHO S 366.00 NONSENILE CATARACT UNSPECIFIED 09/30/2013 CARLOS HICKMAN, CAMACHO S 300.4 DYSTHYMIC DISORDER 09/30/2013 CARLOS HICKMAN, CAMACHO S 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 09/30/2013 CARLOS CIGARETTE PACKAGE EXAMINER, CAMACHO S 366.00 NONSENILE CATARACT UNSPECIFIED 09/30/2013 CARLOS CIGARETTE PACKAGE EXAMINER, CAMACHO S 300.4 DYSTHYMIC DISORDER 09/30/2013 CARLOS HICKMAN, CAMACHO S 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 09/30/2013 CARLOS CIGARETTE PACKAGE EXAMINER, CAMACHO S 366.00 NONSENILE CATARACT UNSPECIFIED 09/30/2013 CARLOS CIGARETTE PACKAGE EXAMINER, CAMACHO S 300.4 DYSTHYMIC DISORDER 09/30/2013 CARLOS CIGARETTE PACKAGE EXAMINER, CAMACHO S 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 09/30/2013 CARLOS CIGARETTE PACKAGE EXAMINER, CAMACHO S 366.00 NONSENILE CATARACT UNSPECIFIED 06/22/2014 TOBY GONZALEZ APRNNDA S 780.79 FATIGUE 08/17/2014 Ot V76.12 04/27/2015 CAMACHO GONZALEZP Ot G45.3 05/09/2015 CARLOSCAMACHO KING TOOL AND DIE TECHNICIAN Ot G45.3 07/26/2015 CARLOSCAMACHO KING TOOL AND DIE TECHNICIAN Ot Z12.31 2015 CARLOSCAMACHO LUNA TOOL AND DIE TECHNICIAN Ot Z12.31 08/29/2015 CARLOSTOBYCAMACHO TOOL AND DIE TECHNICIAN Ot Z12.31 09/28/2015 RUSS MENON MD Ot [...] MAMMO-MALIGN NEOPLASM OF EDSON 08/28/2016 CAMACHO GONZALEZ TOOL AND DIE TECHNICIAN Ot G45.3 AMAUROSIS FUGAX 08/28/2016 CAMACHO GONZALEZ TOOL AND DIE TECHNICIAN Ot Z12.31 ENCNTR SCREEN MAMMOGRAM FOR MALIGNANT NE 08/28/2016 CAMACHO GONZALEZP Ot Z12.31 ENCNTR SCREEN MAMMOGRAM FOR MALIGNANT NE 08/29/2016 CAMACHO GONZALEZ TOOL AND DIE TECHNICIAN Ot Z12.31 ENCNTR SCREEN MAMMOGRAM FOR MALIGNANT NE 08/29/2016 CAMACHO GONZALEZ TOOL AND DIE TECHNICIAN Ot Z12.31 ENCNTR SCREEN MAMMOGRAM FOR MALIGNANT NE 09/18/2016 CAMACHO GONZALEZ TOOL AND DIE TECHNICIAN Ot Z12.31 ENCNTR SCREEN MAMMOGRAM FOR MALIGNANT NE 09/28/2016 CAMACHO GONZALEZ TOOL AND DIE TECHNICIAN Ot Z12.31 ENCNTR SCREEN MAMMOGRAM FOR MALIGNANT NE Procedures Code [place] [address] ROUTINE VENIPUNCTURE 04/21/2012 67787 CBC 04/21/2012 40764 CMP 04/21/2012 18591 LIPID PANEL 04/21 [id number] GFR CALC (RESULT ONLY) 04/21/2012 17678 ROUTINE VENIPUNCTURE 06/10/2013 87703 MAMMOGRAM, SCREENING 06/10/[id number] GFR CALC (RESULT ONLY) 06/10/2013 02768 CMP 06/10/2013 17519 LIPID PANEL 06/10 28471 INSULIN LEVEL 73695 A1C (IN-HOUSE) 05282 HEMOCCULT 2013 13414 MICRO ALBUMIN-IN HOUSE 11/04/2013 Results Test Result [...] Status Pt. Type Provider Facility Loc./Unit Complaint [id number] 06/22/2014 08:35:00 06/22/2014 23: 59:59 CLS Outpatient CARLOS CIGARETTE PACKAGE EXAMINERTOBYCAMACHO S [id number] 11/04/2013 13:34:00 11/04/2013 23: 59:59 CLS Outpatient CARLOS CIGARETTE PACKAGE EXAMINERTOBYCAMACHO S [id number] 11/04/2013 13:34:00 11/04/2013 23: 59:59 CLS Outpatient CARLOS CIGARETTE PACKAGE EXAMINERTOBYCAMACHO S [id number] 09/30/2013 08:42:00 09/30/2013 23: 59:59 CLS Outpatient CARLOS CIGARETTE PACKAGE EXAMINERTOBYCAMACHO S [id number] 06/25/2013 10:33:00 06/25/2013 23: 59:59 CLS Outpatient SHAYLA MARYLOU, WOODROW A [id number] 06/25/2013 10:33:00 06/25/2013 23: 59:59 CLS Outpatient SHAYLA APRN, WOODROW A [id number] 06/15/2013 08:59:00 06/15/2013 23: 59:59 CLS Outpatient [employer] S [id number] 06/10/2013 09:15:00 06/10/2013 23: 59:59 CLS Outpatient [employer] S [id number] 06/10/2013 09:15:00 06/10/2013 23: 59:59 CLS Outpatient [employer] EXAMINER, [place] S [id number] 04/09/2013 17:59:00 04/09/2013 23: 59:59 CLS Outpatient [employer] S [id number] 04/21/2012 11:24:00 04/21/2012 23: 59:59 CLS Outpatient [id number] 04/21/2012 11:24:00 04/21/2012 23: 59:59 CLS Outpatient [employer]ER, [place] S [id number] 01/23/2013 14:32:00 Document Registration [id number] 12/03/2012 13:33:00 Document Registration
--- NOTE | 2016-11-28 08:40 | Progress Note-Pre Operative ---
Pre-Operative Progress Note H&P Reviewed The H&P was reviewed, patient examined and no changes noted. Date Seen by Provider: Nov 28, 2016 Time Seen by Provider: 08:39 Date H&P Reviewed: Nov 28, 2016 Time H&P Reviewed: 08:39 Pre-Operative Diagnosis: LT PROXIMAL URETERAL STONE NATALIIA MORRISSEY MD Nov 28, 2016 8:40 am
[2016-11-28] MEDS ORDERED: CATHETER FLUSH 10 ML SYR IV PRN (09:00)
[2016-11-28] MEDS ORDERED: cefTRIAXone 1 GM/NS 50 ML IVPB IV ONE ×2 (09:00)
[2016-11-28 09:25] VITALS: BP 124/77
[2016-11-28] MEDS: LACTATED RINGERS 1,000 ML IV PRN ×2 (09:33→10:40)
[2016-11-28] MEDS ORDERED: MIDAZOLAM 2 MG/2 ML (VERSED) VIAL ONE (09:52)
[2016-11-28] MEDS ORDERED: fentaNYL INJECTION 100 MCG/2 ML AMP ONE (09:52)
--- NOTE | 2016-11-28 10:13 | Diagnostic Imaging Report ---
INDICATION: Preop for lithotripsy. TECHNIQUE: A KUB was obtained at 0909 hours. COMPARISON: 11/24/2016. FINDINGS: Surgical clips are again noted over the right upper quadrant. There are surgical clips over the left lower quadrant as well. There are calcifications over the pelvis which are probably phleboliths. There is a stone over the abdomen to the left of the L2 level measuring about 1.4 cm. This is unchanged compared to the prior study. A recent CT showed this stone to be at the left UPJ. IMPRESSION: No change in position of the stone overlying the left UPJ. Postop changes in the left lower quadrant and right upper quadrant. Unremarkable bowel gas pattern. Dictated by: Dictated on workstation # [id number]
[2016-11-28] MEDS ORDERED: proPOfol 200 MG/20 ML (DIPRIVAN) VIAL IV ONE (10:14)
[2016-11-28] MEDS ORDERED: LIDOCAINE PF 2% 5 ML (XYLOCAINE) VIAL ONE (10:14)
[2016-11-28] MEDS ORDERED: ONDANSETRON 4 MG/2 ML (SDV) Z0FRAN ONE (10:14)
[2016-11-28] MEDS ORDERED: FUROSEMIDE 40 MG/4 ML INJ (LASIX) ONE (10:14)
[2016-11-28] MEDS ORDERED: LACTATED RINGERS 1,000 ML IV ONE (10:14)
--- NOTE | 2016-11-28 10:26 | Progress Note-Post Operative ---
Post-Operative Progess Note Surgeon (s)/Drafter Refrigeration (s) Surgeon NATALIIA MORRISSEY MD Drafter Refrigeration: N/A Pre-Operative Diagnosis LT PROXIMAL URETERAL STONE Post-Operative Diagnosis SAME Procedure & Operative Findings Date of Procedure 11/28/16 Procedure Performed/Findings LT ESWL FOR LT PROXIMAL URETERAL STONE Anesthesia Type GENERAL Estimated Blood Loss Estimated blood loss (mL): N/A Specimens/Packing Specimens Removed N/A Packing: N/A NATALIIA MORRISSEY MD Nov 28, 2016 10:26 am
--- NOTE | 2016-11-28 10:28 | Discharge Inst-Urology ---
Discharge Inst-Urology Discharge Medications New, Converted, or Re-newed RX: RX on Chart Patient Instructions/Follow Up Plan Please make appointment to been seen in office Sunday 12/03 or Monday 12/04. KUB prior to it KUB on way home Post ESWL instructions to patient Increase oral fluids for 48 hours and then as needed. Diet and Activity as tolerated. If questions or concerns contact your physician Or seek help at emergency department. NATALIIA MORRISSEY MD Nov 28, 2016 10:28 am
[2016-11-28 11:40] VITALS: BP 108/70
[2016-11-28 12:10] VITALS: BP 103/72
[2016-11-28] MEDS ORDERED: NITR-65 PO ×2 (12:22)
[2016-11-28] MEDS ORDERED: HYDR-3876 PO ×2 (12:22)
[2016-11-28] MEDS ORDERED: TAMS0.4C98 PO ×2 (12:22)
[2016-11-28 12:40] VITALS: BP 105/70
--- NOTE | 2016-11-28 14:06 | Diagnostic Imaging Report ---
Supine view of the abdomen. INDICATION: Post lithotripsy. FINDINGS: There is some heterogeneity and the evidence of fine fragmentation seen in 1.7 cm stone projecting over the left renal pelvis area. No definitive stone fragments seen in the ureter on either side. The renal pelvis demonstrates multiple calcifications likely phleboliths. There are surgical clips in the upright abdomen and left side of the pelvis. IMPRESSION: Post lithotripsy changes and 1.7 CM stone projecting over the left renal pelvis area. Dictated by: Dictated on workstation # [id number]
--- NOTE | 2016-11-28 17:11 | OPERATIVE REPORT ---
PROCEDURE PHYSICIAN: NATALIIA MORRISSEY DATE OF PROCEDURE: 11/28/2016 PREOPERATIVE DIAGNOSIS: Left proximal ureteral stone. POSTOPERATIVE DIAGNOSIS: Left proximal ureteral stone. OPERATION: Left ESWL. SURGEON: [place]. ANESTHESIA: General. COMPLICATIONS: None. PROCEDURE: Under satisfactory general anesthesia, the patient supine position on the ESWL table, the left proximal ureteral stone was localized. Shocks were delivered KV of 6. Total of 3000 shocks achieved very good fragmentation of the stone. The patient received 40 mg of Lasix and 30 mg of Toradol IV at the end of the procedure. She tolerated the procedure and anesthesia well and was sent to recovery room in stable condition. Job ID: [id number] Dictated Date: 11/28/2016 10:34:57 Packager Machine Date: 11/28/2016 17:09:33 / hal
== END 2016-11-28 13:00 | disposition home or self-care (01) ==
LOC: SDC 08:25
PROVIDERS: ATTEND Urology
DX: N20.1 Calculus of ureter (principal); Z11.2 Encounter for screening for other bacterial diseases; E11.9 Type 2 diabetes mellitus without complications; K21.9 Gastro-esophageal reflux disease without esophagitis; E78.5 Hyperlipidemia, unspecified; I10 Essential (primary) hypertension; Z79.899 Other long term (current) drug therapy
CPT/HCPCS: 74000; 82962; 87081

== ENCOUNTER → 2016-12-03 | Outpatient (CLI) | payer MEDICARE, MEDICAID ==
[~2016-12-03] MED LIST changes: +HYDR-3876 PO
--- NOTE | 2016-12-03 18:10 | Diagnostic Imaging Report ---
EXAMINATION: Supine view of the abdomen. INDICATION: Left upper ureteric stone. FINDINGS: The previously seen elongated stone along the left flank has been removed or passed. At this point, there is remaining calcification of the pelvis which are likely phleboliths. Surgical clips in the upper right abdomen and near the left pelvis area again seen. IMPRESSION: Interval passage or removal of left renal stones. Dictated by: Dictated on workstation # [id number]
== END ==
LOC: RAD 14:34
PROVIDERS: ATTEND Urology
DX: N20.1 Calculus of ureter (principal)
CPT/HCPCS: 74000

== ENCOUNTER → 2017-08-29 | Outpatient (CLI) | payer MEDICARE, MEDICAID ==
--- NOTE | 2017-08-29 11:44 | Diagnostic Imaging Report ---
INDICATION: Routine screening. Comparison is made with prior study from 08/28/2016 and 07/25/2015. The current study was also evaluated with a Computer Aided Detection (CAD) system. Both breasts are primarily involutional. Scattered benign-appearing calcifications are identified bilaterally. No spiculated mass or malignant appearing microcalcifications are seen. Axillae are unremarkable. IMPRESSION: BI-RADS category 2 No mammographic features suspicious for malignancy are identified. ACR BI-RADS Category 2: Benign findings. Result letter will be mailed to the patient. Note: At least 10% of breast cancer is not imaged by mammography. Dictated by: Dictated on workstation # [id number]
== END ==
LOC: RAD 09:49
PROVIDERS: ATTEND Nurse Practitioner Community Health
DX: Z12.31 Encounter for screening mammogram for malignant neoplasm of breast (principal)
CPT/HCPCS: 77067

== ENCOUNTER 2019-07-12 15:19 | Emergency (ER) | payer MEDICARE, MEDICAID ==
[~2019-07-12] VITALS: Ht 169 cm; Wt 104.2 kg
[~2019-07-12 15:19] MED LIST changes: +METF-397 PO; -METF500T4 PO; -OMEP20CA12 PO; +OMEP20CA18 PO; +SIMV20TA26 PO; -SIMV20TA3 PO; -TAMS0.4C98 PO; +TMSL.4C PO; -TRAM50TA2 PO; +TRM50T PO
--- NOTE | 2019-07-12 16:37 | Diagnostic Imaging Report ---
EXAM: Chest PA/LAT (2 view). INDICATION: Cough. COMPARISON: None. FINDINGS: Normal heart size and pulmonary vascularity. No dense consolidation, pleural effusion or pneumothorax. No acute osseous findings. IMPRESSION: No acute cardiopulmonary findings. Dictated by: Dictated on workstation # [id number]
--- NOTE | 2019-07-12 16:46 | ED General ---
General Chief Complaint: Cough/Cold/Flu Symptoms Stated Complaint: SOA Nursing Triage Note: Patient reports that she was evaluated yesterday for a cough and was prescribed doxycycline for possible pneumonia. patient states that she has had SOA since and has been on several different antibiotics and will do better while on antibiotics but when she stops she goes back to coughing and having SOA. Nursing Sepsis Screen: No Definite Risk History of Present Illness Date Seen by Provider: Jul 12, 2019 Time Seen by Provider: 16:42 Initial Comments 68-year-old female claims she's been sick since so 2 months has not happened before it got worse with sore throat achy all over nonproductive cough chills no temp teken no vomiting or diarrhea she says she was seen twice in April for this got amoxicillin and some pills for cough but no diagnostic testing no x-ray denies ever having been diagnosed with COPD or used inhalers until she was seen yesterday and prescribed doxycycline and an inhaler she states the inhaler doesn't really seem to help denies ever smoking Allergies and Home Medications Allergies Coded Allergies: No Known Drug Allergies (Verified , 11/27/16) Home Medications Cyclobenzaprine HCl 10 Mg Tablet, 10 MG PO PRN, (Reported) Hydrocodone/Acetaminophen 1 Each Tablet, 1-2 TAB PO Q4H PRN for PAIN Prescribed by: SHAYNA PERALES on 11/28/161221 Lisinopril 40 Mg Tablet, 40 MG PO DAILY, (Reported) Metformin HCl 500 Mg Tablet, 500 MG PO BID, (Reported) Nitrofurantoin Monohyd/M-Cryst 100 Mg Capsule, 1 CAP PO BID Prescribed by: SHAYNA PERALES on 11/28/161221 Omeprazole 20 Mg Tablet.dr, 20 MG PO DAILY, (Reported) Omeprazole 20 Mg Capsule.dr, 20 MG PO BID, (Reported) Pioglitazone HCl 30 Mg Tablet, 30 MG PO DAILY, (Reported) Sertraline HCl 100 Mg Tablet, 100 MG PO DAILY, (Reported) Simvastatin 20 Mg Tablet, 20 MG PO HS, (Reported) Tamsulosin HCl 0.4 Mg Cap, 1 CAP PO DAILY Prescribed by: SHAYNA PERALES on 11/28/16 122 Tramadol HCl 50 Mg Tablet, 50 MG PO PD, (Reported) Patient Home Medication List Home Medication List Reviewed: Yes Review of Systems Review of Systems Constitutional: chills EENTM: No nose congestion, No throat pain Respiratory: cough, short of breath Cardiovascular: No chest pain, No palpitations, No syncope Gastrointestinal: No abdominal pain, No diarrhea, No nausea, No vomiting Genitourinary: no symptoms reported Past Wrgqttv-Hqryyz-Denhfh Hx Patient Social History Alcohol Use: Denies Use Recreational Drug Use: No Recent Foreign Travel: No Contact w/Someone Who Travel: No Recent Infectious Disease Expo: No Recent Hopitalizations: No Immunizations Up To Date Tetanus Booster (TDap): Unknown Seasonal Allergies Seasonal Allergies: No Past Medical History Surgeries: Yes (RT OVARIAN CYSTECTOMY, CATARACTS, COLONOSCOPIES WITH POLYPECTOMIES) Hysterectomy Respiratory: No Cardiac: Yes High Cholesterol, Hypertension Neurological: No 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 Sexually Transmitted Disease: Yes HIV/AIDS: No Genitourinary: Yes Kidney Stones Gastrointestinal: Yes Gastroesophageal Reflux, Polyps Musculoskeletal: No Endocrine: Yes Diabetes, 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 0.0oz. 98.501411ss; 36.00 BMI Method:Stated General Appearance: No Apparent Distress (but somewhat noisy breathing with rhonchi) Eyes: Bilateral Eye PERRL, Bilateral Eye EOMI HEENT: PERRL/EOMI, TMs Normal, Other (oropharynx appears inflamed) Neck: Supple Respiratory: No Accessory Muscle Use, No Respiratory Distress, Rhonci (throughout) Cardiovascular: Regular Rate, Rhythm, No Murmur Gastrointestinal: Normal Bowel Sounds, Non Tender, Soft Extremity: No Calf Tenderness; No Pedal Edema Progress/Results/Core Measures Suspected Sepsis Recent Fever Within 48 Hours: No Infection Criteria Present: None New/Unexplained Altered Menta: No Sepsis Screen: No Definite Risk SIRS Temperature: Pulse: 92 Respiratory Rate: 22 Blood Pressure 143 /76 Mean: 98 Results/Orders Micro Results Microbiology 07/12/19 Influenza Types A,B Antigen (STELLA) - Final, Complete My Orders Orders - ALFRED LEDBETTER MD Influenza A And B Antigens (07/12/19 16:00) Chest Pa/Lat (2 View) (07/12/19 16:22) Vital Signs/I&O 07/12/19 15:28 Temp 36.6 Pulse 92 Resp 22 B/P (MAP) 143/76 (98) Pulse Ox 95 Capillary Refill : Less Than 3 Seconds Blood Pressure Mean: 98 Progress Note : Progress Note influenza A&B neg CXR - normal Departure Impression Primary Impression: Bronchitis Disposition: HOME, SELF-CARE Condition: Stable Departure-Patient Inst. Decision time for Depature: 17:13 Referrals: FRACISCO SHAH MD (PCP) Primary Care Physician CAMACHO GONZALEZ (Family) Primary Care Physician Patient Instructions: Acute Bronchitis, Adult (DC) Add. Discharge Instructions: testing shows no pneumonia on chest x-ray flu tests are negative Recommend continuing with current doxycycline and inhalers if not returning to normal would consider pulmonary consult ALFRED LEDBETTER MD Jul 12, 2019 16:46
[2019-07-12 17:20] VITALS: BP 128/77
== END 2019-07-12 17:19 | disposition home or self-care (01) ==
LOC: EDUNIT# 15:19 → ER FS 15:20
DX: J40 Bronchitis, not specified as acute or chronic (principal); I10 Essential (primary) hypertension; E11.9 Type 2 diabetes mellitus without complications; E78.00 Pure hypercholesterolemia, unspecified; K21.9 Gastro-esophageal reflux disease without esophagitis; F32.9 Major depressive disorder, single episode, unspecified; Z79.84 Long term (current) use of oral hypoglycemic drugs
CPT/HCPCS: 71046; 87804

== ENCOUNTER 2020-06-04 12:42 | Inpatient (IN) | payer MEDICARE, MEDICAID ==
[~2020-06-04] VITALS: Ht 170.2 cm; Wt 99.7 kg
[~2020-06-04 12:42] MED LIST changes: -HYDR-3876 PO; +HYDR-3920 PO
--- NOTE | 2020-06-04 13:23 | ED General ---
General Chief Complaint: Respiratory Problems Nursing Triage Note: PT HAS COVID TIMES ONE WEEK. SHE REPROTS SHE WAS SENT HERE BY URGENT CARE FOR AN OXYGEN SAT OF 80% AND SHE CAME BY PRIVATE VEHICLE. Nursing Sepsis Screen: No Definite Risk Source of Information: Patient History of Present Illness Date Seen by Provider: Jun 04, 2020 Time Seen by Provider: 13:10 Initial Comments 69-year-old female presents from the walk-in clinic with complaint of low oxygen saturation. Patient was diagnosed with COVID-19 in [place] 1 week ago and was not given any medication or instructions. She says she is not taking any vitamins, but occasionally tries to take a zinc tablet, however she has been vomiting and unable to keep it down. She also complains of diarrhea, decreased appetite and weakness. She denies shortness of air or cough. Generally complains of overall feeling weak. Denies any history of heart or lung problems, she is a diabetic and has high blood pressure and taking medicine for both. Allergies and Home Medications Allergies Coded Allergies: No Known Drug Allergies (Verified , 11/27/16) Home Medications Cyclobenzaprine HCl 10 Mg Tablet, 10 MG PO PRN, (Reported) Hydrocodone/Acetaminophen 1 Each Tablet, 1-2 TAB PO Q4H PRN for PAIN Prescribed by: SHAYNA PERALES on 11/28/16 1222 Lisinopril 40 Mg Tablet, 40 MG PO DAILY, (Reported) Metformin HCl 500 Mg Tablet, 500 MG PO BID, (Reported) Nitrofurantoin Monohyd/M-Cryst 100 Mg Capsule, 1 CAP PO BID Prescribed by: SHAYNA PERALES on 11/28/16 122 Omeprazole 20 Mg Tablet.dr, 20 MG PO DAILY, (Reported) Omeprazole 20 Mg Capsule.dr, 20 MG PO BID, (Reported) Pioglitazone HCl 30 Mg Tablet, 30 MG PO DAILY, (Reported) Sertraline HCl 100 Mg Tablet, 100 MG PO DAILY, (Reported) Simvastatin 20 Mg Tablet, 20 MG PO HS, (Reported) Tamsulosin HCl 0.4 Mg Cap, 1 CAP PO DAILY Prescribed by: SHAYNA PERALES on 11/28/16 1222 Tramadol HCl 50 Mg Tablet, 50 MG PO PD, (Reported) Patient Home Medication List Home Medication List Reviewed: Yes Review of Systems Review of Systems Constitutional: No chills, No diaphoresis, No dizziness, No fever; malaise, weakness EENTM: no symptoms reported Respiratory: No cough, No short of breath, No wheezing Cardiovascular: No chest pain, No edema, No palpitations, No syncope Gastrointestinal: No abdominal pain; diarrhea, loss of appetite, nausea, vomiting Musculoskeletal: No back pain, No joint pain Skin: No change in color, No rash Past Tcfcldg-Bkmvzf-Ussvkr Hx Past Med/Social Hx: Reviewed Nursing Past Med/Soc Hx Patient Social History Alcohol Use: Denies Use Recent Infectious Disease Expo: Yes Recent Hopitalizations: No Immunizations Up To Date Tetanus Booster (TDap): Unknown Seasonal Allergies Seasonal Allergies: No Past Medical History Surgeries: Yes (RT OVARIAN CYSTECTOMY, CATARACTS, COLONOSCOPIES WITH POLYPECTOMIES) Hysterectomy Respiratory: Yes Chronic Bronchitis Cardiac: Yes High Cholesterol, Hypertension Neurological: No 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 Sexually Transmitted Disease: Yes HIV/AIDS: No Genitourinary: Yes Kidney Stones Gastrointestinal: Yes Gastroesophageal Reflux, Polyps Musculoskeletal: No Endocrine: Yes Diabetes, Non-Insulin dep Macular Degeneration Loss of Vision: Bilateral Hearing Impairment: Denies Cancer: No Psychosocial: Yes Depression Integumentary: No Blood Disorders: No Adverse Reaction/Blood Tranf: No (N/A) Physical Exam Vital Signs Vital Signs - First Documented 06/04/20 12:52 Temp 36.8 Pulse 89 Resp 18 B/P (MAP) 155/74 (101) Pulse Ox 90 O2 Delivery Room Air Capillary Refill : Less Than 3 Seconds Height, Weight, BMI Height: 5'7.00" Weight: 218lbs. 0.0oz. 98.252442oy; 36.00 BMI Method:Stated General Appearance: No Apparent Distress, WD/WN HEENT: PERRL/EOMI, Normal ENT Inspection Neck: Non Tender, Supple Respiratory: Chest Non Tender, Lungs Clear, Normal Breath Sounds, No Accessory Muscle Use, No Respiratory Distress Cardiovascular: Regular Rate, Rhythm, No Edema, No JVD, Normal Peripheral Pulses Gastrointestinal: Normal Bowel Sounds, No Organomegaly, Non Tender, Soft Back: Normal Inspection, No CVA Tenderness, No Vertebral Tenderness Extremity: Normal Capillary Refill, Normal Range of Motion, Non Tender Neurologic/Psychiatric: Alert, Oriented x3, No Motor/Sensory Deficits, Normal Mood/Affect, brine purifier II-XII Norm as Tested Progress/Results/Core Measures Suspected Sepsis Recent Fever Within 48 Hours: No Infection Criteria Present: Documented Infection New/Unexplained Altered Menta: No Sepsis Screen: No Definite Risk SIRS Temperature: Pulse: 89 Respiratory Rate: 18 Laboratory Tests 06/04/20 13:30: White Blood Count 3.8L Blood Pressure 155 /74 Mean: 101 Laboratory Tests 06/04/20 13:30: Creatinine 0.60, Platelet Count 110L, Total Bilirubin 0.4 Results/Orders Lab Results Laboratory Tests Test 06/04/20 13:30 Range/Units White Blood Count 3.8 L 4.3-11.0 10^3/uL Red Blood Count 3.52 L 4.35-5.85 10^6/uL Hemoglobin 10.6 L 11.5-16.0 G/DL Hematocrit 33 L 35-52 % Mean Corpuscular Volume 92 80-99 FL Mean Corpuscular Hemoglobin 30 25-34 PG Mean Corpuscular Hemoglobin Concent 33 32-36 G/DL Red Cell Distribution Width 13.4 10.0-14.5 % Platelet Count 110 L 130-400 10^3/uL Mean Platelet Volume 10.9 H 7.4-10.4 FL Neutrophils (%) (Auto) 74 42-75 % Lymphocytes (%) (Auto) 20 12-44 % Monocytes (%) (Auto) 6 0-12 % Eosinophils (%) (Auto) 0 0-10 % Basophils (%) (Auto) 0 0-10 % Neutrophils # (Auto) 2.8 1.8-7.8 X 10^3 Lymphocytes # (Auto) 0.8 L 1.0-4.0 X 10^3 Monocytes # (Auto) 0.2 0.0-1.0 X 10^3 Eosinophils # (Auto) 0.0 0.0-0.3 10^3/uL Basophils # (Auto) 0.0 0.0-0.1 10^3/uL Sodium Level 130 L 135-145 MMOL/L Potassium Level 6.8 *H 3.6-5.0 MMOL/L Chloride Level 99 98-107 MMOL/L Carbon Dioxide Level 15 L 21-32 MMOL/L Anion Gap 16 H 5-14 MMOL/L Blood Urea Nitrogen 28 H 7-18 MG/DL Creatinine 0.60 0.60-1.30 MG/DL Estimat Glomerular Filtration Rate > 60 BUN/Creatinine Ratio 47 Glucose Level 117 H 70-105 MG/DL Calcium Level 7.5 L 8.5-10.1 MG/DL Corrected Calcium 8.0 L 8.5-10.1 MG/DL Total Bilirubin 0.4 0.1-1.0 MG/DL Aspartate Amino Transf (AST/SGOT) 80 H 5-34 U/L Alanine Aminotransferase (ALT/SGPT) 16 0-55 U/L Alkaline Phosphatase 69 40-136 U/L C-Reactive Protein 4.51 H <0.50 MG/DL Total Protein 7.7 6.4-8.2 GM/DL Albumin 3.4 3.2-4.5 GM/DL My Orders Orders - ROVENSTINEMUSHTAQCHAYO L DO Ed Iv/Invasive Line Start (06/04/20 13:17) Cbc With Automated Diff (06/04/20 13:17) Comprehensive Metabolic Panel (06/04/20 13:17) Lactic Acid Analyzer (06/04/20 13:17) Crp Fs (06/04/20 13:17) Procalcitonin (Pct) (06/04/20 13:17) Chest 1 View Ap/Pa Only (06/04/20 13:17) Dexamethasone Injection (Decadron Inje (06/04/20 13:30) Ondansetron Injection (Zofran Injectio (06/04/20 13:30) Ns Iv 1000 Ml (Sodium Chloride 0.9%) (06/04/20 13:30) Acetaminophen Tablet (Tylenol Tablet) (06/04/20 14:00) Arterial Blood Gas (06/04/20 15:13) Basic Metabolic Panel (06/04/20 15:13) Enoxaparin Injection (Lovenox Injection) (06/04/20 15:15) Medications Given in ED Current Medications Medications Dose Ordered Sig/Roly Route Start Time Stop Time Status Last Admin Dose Admin Acetaminophen 1,000 mg ONCE ONCE PO 06/04/20 14:00 06/04/20 14:01 DC 06/04/20 13:55 1,000 MG Dexamethasone Sodium Phosphate 6 mg ONCE ONCE IV 06/04/20 13:30 06/04/20 13:31 DC 06/04/20 13:44 6 MG Ondansetron HCl 4 mg ONCE ONCE IVP 06/04/20 13:30 06/04/20 13:31 DC 06/04/20 13:43 4 MG Vital Signs/I&O 06/04/20 06/04/20 12:52 13:06 Temp 36.8 Pulse 89 Resp 18 B/P (MAP) 155/74 (101) Pulse Ox 90 94 O2 Delivery Room Air Room Air Capillary Refill : Less Than 3 Seconds Blood Pressure Mean: 101 Progress Note : Progress Note Patient stable, however unable to maintain her oxygen saturations on room air above 90%. Even with talking, she drops to mid to low 80s and frequently upper 80s at rest. On 2 L per nasal cannula, she comfortably has a saturation 94 to 95% no distress. Discussed need for hospitalization, she is in agreement. Diagnostic Imaging Diagonstic Imaging: Xray Plain Films/CT/US/NM/MRI: chest Comments IMPRESSION: There is interval development of diffuse bilateral lung infiltrates concerning for pneumonia. Dictated on workstation # [id number] Dict: 06/04/20 1341 Trans: 06/04/20 1345 [facility] [id number] Interpreted by: SHYLA VELASCO MD Electronically signed by: Departure Communication (Admissions) Time/Spoke to Admitting Phy: 15:[address] Dial who accepts for admission to [facility] Impression Primary Impression: Pneumonia due to COVID-19 virus Additional Impression: Hypoxia Disposition: 30 STILL A PATIENT Condition: Improved Admissions Decision to Admit Reason: Admit from ER (General) Decision to Admit/Date: Jun 04, 2020 Time/Decision to Admit Time: 15:15 Departure-Patient Inst. Referrals: FRACISCO SHAH MD (PCP) Primary Care Physician CAMACHO GONZALEZ (Family) Primary Care Physician CHAYO PIZARRO DO Jun 04, 2020 13:23
[2020-06-04] MEDS ORDERED: NS IV 1000 ML 1,000 ML IV SCH (13:30)
[2020-06-04] MEDS ORDERED: ONDANSETRON 4 MG/2 ML (SDV) Z0FRAN IVP ONE (13:30)
--- NOTE | 2020-06-04 13:45 | Diagnostic Imaging Report ---
CLINICAL INDICATION: Patient with shortness of air and hypoxia. Patient with Covid-19 x 1 week. EXAM: Portable chest x-ray upright view. COMPARISONS: Chest x-ray dated 07/12/2019. FINDINGS: Lungs/pleura: There is interval development of diffuse bilateral lung infiltrates. There is no pneumothorax. There is no pleural effusion. Mediastinum: Unremarkable. Pulmonary vasculature: Unremarkable. Heart: Unremarkable. Bones/extrathoracic soft tissue: There are degenerative spurs involving the thoracic spine. IMPRESSION: There is interval development of diffuse bilateral lung infiltrates concerning for pneumonia. Dictated by: Dictated on workstation # [id number]
[2020-06-04 13:46] LABS: BASOPHILS % (AUTO) 0 % (0-10); EOSINOPHILS % (AUTO) 0 % (0-10); HEMATOCRIT 33 % (35-52); HEMOGLOBIN 10.6 G/DL (11.5-16.0); LYMPHOCYTES # (AUTO) 0.8 X 10^3 (1.0-4.0); LYMPHOCYTES % (AUTO) 20 % (12-44); MEAN CORPUSCULAR HEMOGLOBIN 30 PG (25-34); MEAN CORPUSCULAR HGB CONC 33 G/DL (32-36); MEAN CORPUSCULAR VOLUME 92 FL (80-99); MEAN PLATELET VOLUME 10.9 FL (7.4-10.4); MONOCYTES # (AUTO) 0.2 X 10^3 (0.0-1.0); MONOCYTES % (AUTO) 6 % (0-12); NEUTROPHILS # (AUTO) 2.8 X 10^3 (1.8-7.8); NEUTROPHILS % (AUTO) 74 % (42-75); PLATELET COUNT 110 10^3/uL (130-400); WHITE BLOOD COUNT 3.8 10^3/uL (4.3-11.0)
[2020-06-04] MEDS ORDERED: ACETAMINOPHEN 500 MG TAB (TYLENOL) PO ONE (14:00)
[2020-06-04 14:56] LABS: CARBON DIOXIDE 15 MMOL/L (21-32); CHLORIDE 99 MMOL/L (98-107); POTASSIUM 6.8 MMOL/L (3.6-5.0); SODIUM 130 MMOL/L (135-145)
[2020-06-04 14:57] LABS: ALANINE AMINOTRANSFERASE 16 U/L (0-55); ALBUMIN 3.4 GM/DL (3.2-4.5); ALKALINE PHOSPHATASE 69 U/L (40-136); BILIRUBIN,TOTAL 0.4 MG/DL (0.1-1.0); BUN/CREATININE RATIO 47; CALCIUM 7.5 MG/DL (8.5-10.1); GFR ESTIMATED > 60; GLUCOSE 117 MG/DL (70-105); TOTAL PROTEIN 7.7 GM/DL (6.4-8.2)
[2020-06-04] MEDS ORDERED: ENOXAPARIN 40 MG/0.4 ML (LOVENOX) SYR SC ONE (15:15)
[2020-06-04 15:55] LABS: BUN/CREATININE RATIO 44; CALCIUM 8.7 MG/DL (8.5-10.1); CARBON DIOXIDE 19 MMOL/L (21-32); CHLORIDE 97 MMOL/L (98-107); CREATININE SERUM 0.73 MG/DL (0.60-1.30); GFR ESTIMATED > 60; GLUCOSE 141 MG/DL (70-105); POTASSIUM 4.6 MMOL/L (3.6-5.0); SODIUM 130 MMOL/L (135-145)
--- NOTE | 2020-06-04 15:59 | NUR ---
ATTEMPTED REPORT AT THIS TIME, NO ANSWER AFTER BEING TRANSFERRED.
[2020-06-04 16:21] LABS: ABG BASE EXCESS -2.1 MMOL/L (-2.5-2.5); ABG OXYGEN SATURATION 94 % (94-100); ABG PCO2 26 MMHG (35-45); ABG PO2 71 MMHG (79-93); ABG TCO2 23.4 MMOL/L (21.0-31.0)
[2020-06-04 16:22] LABS: ALLENS TEST YES-POS; INSPIRED O2 2L; PATIENT TEMP 36.9; VENTILATOR NO
--- NOTE | 2020-06-04 16:27 | NUR ---
ATTEMPTED REPORT AT THIS TIME.
--- NOTE | 2020-06-04 16:45 | NUR ---
Aisha Mckeon admitted to room 426-1, with an admitting diagnosis of Covid positive and hypoxia, on 06/04/20 from [place] via , accompanied by .AISHA MCKEON introduced to surroundings, call light, bed controls, phone, TV, temperature control, lights, meal times, smoking policy, visitor policy, side rail policy, bathrooms and showers. Patient Rights given to patient in the handbook.AISHA MCKEON verbalizes understanding that [facility] is not responsible for the loss or damage to any personal effects or valuables that are kept in the patients posession during their hospitalization.AISHA MCKEON verbalizes understanding of Interdisciplinary Patient Education. Patient and/or family were informed about the Rapid Response Team and its purpose.
[2020-06-04] MEDS ORDERED: ONDANSETRON 4 MG/2 ML (SDV) Z0FRAN IV PRN (17:00)
[2020-06-04 17:52] VITALS: BP 127/71
[2020-06-04 20:12] VITALS: BP 110/67
--- NOTE | 2020-06-04 21:16 | History & Physical-Hospitalist ---
History of Present Illness HPI/Chief Complaint CC: Dyspnea with COVID-19 HPI: This is a 69yoWF of [facility] who presents from [facility] with dyspnea and hypoxia and 7 days hx of COVID. Patient was placed on 2L/min and monitored closely. Home meds were started and maintained. Denies fever. Source: patient, RN/MD Date Seen 06/04/20 Time Seen by a Provider: 20:00 Attending Physician Oliva Dial David F MD Referring Physician Date of Admission Jun 04, 2020 at 16:44 Home Medications & Allergies Home Medications Reviewed patient Home Medication Reconciliation performed by pharmacy medication reconciliations network operations center technician and/or nursing. Patients Allergies have been reviewed. Allergies Allergies Coded Allergies No Known Drug Allergies (Verified11/27/16) Past Nhsbeup-Hshmzz-Vgwfcv Hx Past Med/Social Hx: Reviewed Nursing Past Med/Soc Hx, Reviewed and Corrections made Patient Social History Marrital Status: single Employed/Student: retired Alcohol Use: Denies Use Recreational Drug Use: No Smoking Status: Never a Smoker Recent Foreign Travel: No Contact w/other who traveled: No Recent Hopitalizations: No Recent Infectious Disease Expo: Yes Immunizations Up To Date Tetanus Booster (TDap): Unknown Date of Influenza Vaccine: Feb 22, 2021 Seasonal Allergies Seasonal Allergies: No Past Medical History Surgeries: Hysterectomy Cardiac: High Cholesterol, Hypertension Reproductive: No Sexually Transmitted Disease: Yes HIV/AIDS: No Hysterectomy Genitourinary: Kidney Stones Gastrointestinal: Gastroesophageal Reflux, Polyps Endocrine: Diabetes, Non-Insulin dep HEENT: Macular Degeneration Loss of Vision: Bilateral Hearing Impairment: Denies Psychosocial: Depression History of Blood Disorders: No Adverse Reaction to Blood Petty: No (N/A) Review of Systems Constitutional: see HPI Respiratory: dyspnea on exertion Physical Exam Physical Exam Vital Signs Vital Signs - First Documented 06/04/20 06/04/20 12:52 15:34 Temp 36.8 Pulse 89 Resp 18 B/P (MAP) 155/74 (101) Pulse Ox 90 O2 Delivery Room Air O2 Flow Rate 2.00 Capillary Refill : Less Than 3 Seconds Height, Weight, BMI Height: 5'7.00" Weight: 218lbs. 0.0oz. 98.851740yd; 34.41 BMI Method:Stated General Appearance: No Apparent Distress Eyes: Right Eye Normal Inspection, Right Eye PERRL HEENT: PERRL/EOMI, Normal ENT Inspection, Pharynx Normal, Moist Mucous M embranes Neck: Full Range of Motion, Normal Inspection, Non Tender Respiratory: Chest Non Tender, Lungs Clear, No Accessory Muscle Use, No Respiratory Distress, Decreased Breath Sounds Cardiovascular: Regular Rate, Rhythm, No Edema, No Gallop, No JVD, No Murmur, Normal Peripheral Pulses Gastrointestinal: Normal Bowel Sounds, No Organomegaly, No Pulsatile Mass, Non Tender, Soft Back: Normal Inspection, No CVA Tenderness, No Vertebral Tenderness Extremity: Normal Capillary Refill, Normal Inspection, Normal Range of Motion, Non Tender, No Calf Tenderness, No Pedal Edema Neurologic/Psychiatric: Alert, Oriented x3, No Motor/Sensory Deficits, Normal Mood/Affect Skin: Normal Color, Warm/Dry Lymphatic: No Adenopathy Results Results/Procedures Labs Laboratory Tests 06/04/20 13:30 06/04/20 15:19 06/05/20 07:40 Patient resulted labs reviewed. Assessment/Plan Admission Diagnosis Assessment: COVID-19 PNA Hypoxia DM GERD Plan: Monitor O2 [facility] Status: Inpatient Order (span 2 midnights) Reason for Inpatient Admission: COVID 19 PNA Diagnosis/Problems Diagnosis/Problems (1) Pneumonia due to COVID-19 virus Status: Acute (2) Hypoxia Status: Acute OLIVA DIAL DO Jun 04, 2020 21:16
[2020-06-04] MEDS ORDERED: guaiFENesin/CODEINE (ROBITUSSIN AC) 10ML UDC PO PRN (21:30)
[2020-06-04] MEDS ORDERED: HYDROcodone/APAP 5 MG/325 MG (LORTAB) TAB PO PRN (21:30)
[2020-06-04] MEDS ORDERED: CALCIUM CARBONATE 500 MG (TUMS) TAB.CHEW PO PRN (21:30)
[2020-06-04] MEDS ORDERED: diphenhydrAMINE 25 MG TAB (BENADRYL) PO PRN (21:30)
[2020-06-04] MEDS ORDERED: LOPERAMIDE 2 MG (IMODIUM) TABLET PO PRN (21:30)
[2020-06-04] MEDS ORDERED: DOCUSATE SODIUM 100 MG (COLACE) CAP PO PRN (21:30)
[2020-06-04] MEDS: ALPRAZolam 0.25 MG (XANAX) TAB PO PRN (22:14)
[2020-06-04] MEDS: MELATONIN 3 MG TABLET PO PRN (22:14)
[2020-06-04] MEDS: ACETAMINOPHEN 500 MG TAB (TYLENOL) PO PRN (22:15)
[2020-06-04 23:56] VITALS: BP 105/63
[2020-06-05 03:50] VITALS: BP 115/71
[2020-06-05] MEDS: ALPRAZolam 0.25 MG (XANAX) TAB PO PRN (05:57)
[2020-06-05 07:50] VITALS: BP 132/68
--- NOTE | 2020-06-05 08:04 | Progress Note - Hospitalist ---
Subjective HPI/CC On Admission Date Seen by Provider: Jun 05, 2020 Time Seen by Provider: 12:30 Subjective/Events-last exam 2L.min O2 Drama with family Changed password multiple times No pain Labs stable Review of Systems General: Fatigue, Malaise Neurological: Weakness Focused Exam Lactate Level 06/04/20 15:19: Lactic Acid Level 0.70 Objective Exam Vital Signs Vital Signs Date Time Temp Pulse Resp B/P (MAP) Pulse Ox O2 Delivery O2 Flow Rate FiO2 06/05/20 19:52 74 20 92 Nasal Cannula 3.00 06/05/20 16:04 36.2 124/60 (81) Capillary Refill : Less Than 3 Seconds General Appearance: No Apparent Distress, WD/WN, Chronically ill Respiratory: Chest Non Tender, Lungs Clear, Normal Breath Sounds, No Accessory Muscle Use, No Respiratory Distress Cardiovascular: Regular Rate, Rhythm, No Edema, No Gallop, No JVD, No Murmur, Normal Peripheral Pulses Neurologic/Psychiatric: Alert, Oriented x3, No Motor/Sensory Deficits, Normal Mood/Affect Results/Procedures Lab Laboratory Tests 06/05/20 07:40 Patient resulted labs reviewed. Assessment/Plan Assessment and Plan Assess & Plan/Chief Complaint Assessment: COVID-19 PNA Hypoxia DM GERD Plan: Monitor O2 Supportive long-term meds Lovenox 06/05/20: O2 Lovenox Monitor closely LICHA NGUYEN DO Jun 05, 2020 08:04
[2020-06-05 08:19] LABS: BASOPHILS % (AUTO) 0 % (0-10); EOSINOPHILS % (AUTO) 0 % (0-10); HEMATOCRIT 35 % (35-52); HEMOGLOBIN 11.4 g/dL (11.5-16.0); LYMPHOCYTES # (AUTO) 0.7 10^3/uL (1.0-4.0); LYMPHOCYTES % (AUTO) 17 % (12-44); MEAN CORPUSCULAR HEMOGLOBIN 30 pg (25-34); MEAN CORPUSCULAR HGB CONC 33 g/dL (32-36); MEAN CORPUSCULAR VOLUME 91 fL (80-99); MEAN PLATELET VOLUME 10.1 fL (9.0-12.2); MONOCYTES # (AUTO) 0.2 10^3/uL (0.0-1.0); MONOCYTES % (AUTO) 4 % (0-12); NEUTROPHILS # (AUTO) 3.3 10^3/uL (1.8-7.8); NEUTROPHILS % (AUTO) 77 % (42-75); PLATELET COUNT 155 10^3/uL (130-400); WHITE BLOOD COUNT 4.3 10^3/uL (4.3-11.0)
[2020-06-05] MEDS: ENOXAPARIN 40 MG/0.4 ML (LOVENOX) SYR SC SCH (08:21)
[2020-06-05] MEDS: SENNA W/DOCUSATE (SENOKOT S) TABLET PO SCH ×2 (08:21→20:43)
[2020-06-05 08:41] LABS: ALANINE AMINOTRANSFERASE 17 U/L (0-55); ALKALINE PHOSPHATASE 82 U/L (40-136); BILIRUBIN,TOTAL 0.3 MG/DL (0.1-1.0); BUN/CREATININE RATIO 44; CALCIUM 9.3 MG/DL (8.5-10.1); CARBON DIOXIDE 19 MMOL/L (21-32); CHLORIDE 102 MMOL/L (98-107); CREATININE SERUM 0.81 MG/DL (0.60-1.30); GFR ESTIMATED > 60; GLUCOSE 124 MG/DL (70-105); POTASSIUM 4.6 MMOL/L (3.6-5.0); SODIUM 136 MMOL/L (135-145); TOTAL PROTEIN 8.6 GM/DL (6.4-8.2)
[2020-06-05 11:42] VITALS: BP 119/69
[2020-06-05] MEDS ORDERED: SIMV40TA25 PO (12:56)
[2020-06-05] MEDS ORDERED: DESV100T6 PO (12:57)
[2020-06-05] MEDS ORDERED: CYCLOBENZAPRINE 10 MG (FLEXERIL) TAB PO SCH (13:00)
[2020-06-05] MEDS ORDERED: ENOXAPARIN 40 MG/0.4 ML (LOVENOX) SYR SC SCH (15:00)
[2020-06-05 16:04] VITALS: BP 124/60
[2020-06-05] MEDS: metFORMIN 500 MG (GLUCOPHAGE) TAB PO SCH (17:32)
[2020-06-05] MEDS: ACETAMINOPHEN 500 MG TAB (TYLENOL) PO PRN (20:42)
[2020-06-05] MEDS: SIMvastatin 40 MG (ZOCOR) TAB PO SCH (20:42)
[2020-06-05] MEDS: VENlafaxine XR 75 MG (EFFEXOR XR) CAP PO SCH (20:43)
[2020-06-05] MEDS ORDERED: OMEPRAZOLE 20 MG (PriLOSEC) CAP NON-FORMULARY PO SCH (21:00)
[2020-06-06 00:01] VITALS: BP 132/72
[2020-06-06] MEDS: metFORMIN 500 MG (GLUCOPHAGE) TAB PO SCH ×3 (05:56→21:16)
[2020-06-06 06:43] LABS: BASOPHILS % (AUTO) 0 % (0-10); EOSINOPHILS % (AUTO) 0 % (0-10); HEMATOCRIT 34 % (35-52); HEMOGLOBIN 11.2 g/dL (11.5-16.0); LYMPHOCYTES # (AUTO) 0.9 10^3/uL (1.0-4.0); LYMPHOCYTES % (AUTO) 14 % (12-44); MEAN CORPUSCULAR HEMOGLOBIN 30 pg (25-34); MEAN CORPUSCULAR HGB CONC 33 g/dL (32-36); MEAN CORPUSCULAR VOLUME 91 fL (80-99); MEAN PLATELET VOLUME 10.6 fL (9.0-12.2); MONOCYTES # (AUTO) 0.3 10^3/uL (0.0-1.0); MONOCYTES % (AUTO) 4 % (0-12); NEUTROPHILS # (AUTO) 4.9 10^3/uL (1.8-7.8); NEUTROPHILS % (AUTO) 80 % (42-75); PLATELET COUNT 184 10^3/uL (130-400); WHITE BLOOD COUNT 6.1 10^3/uL (4.3-11.0)
[2020-06-06 06:58] LABS: ALBUMIN 3.9 GM/DL (3.2-4.5)
[2020-06-06 06:59] LABS: CHLORIDE 103 MMOL/L (98-107); POTASSIUM 4.3 MMOL/L (3.6-5.0); SODIUM 135 MMOL/L (135-145)
[2020-06-06 07:00] LABS: CALCIUM 9.3 MG/DL (8.5-10.1)
[2020-06-06] MEDS ORDERED: VENlafaxine XR 75 MG (EFFEXOR XR) CAP PO SCH (07:00)
[2020-06-06 07:01] LABS: GLUCOSE 108 MG/DL (70-105); TOTAL PROTEIN 8.4 GM/DL (6.4-8.2)
[2020-06-06 07:02] LABS: CARBON DIOXIDE 21 MMOL/L (21-32)
[2020-06-06 07:03] LABS: BILIRUBIN,TOTAL 0.3 MG/DL (0.1-1.0)
[2020-06-06 07:04] LABS: ALKALINE PHOSPHATASE 77 U/L (40-136)
[2020-06-06 07:05] LABS: CREATININE SERUM 0.83 MG/DL (0.60-1.30); GFR ESTIMATED > 60
[2020-06-06 07:06] LABS: BUN/CREATININE RATIO 47
[2020-06-06 07:08] LABS: ALANINE AMINOTRANSFERASE 13 U/L (0-55)
[2020-06-06 07:30] VITALS: BP 132/68
[2020-06-06] MEDS: SENNA W/DOCUSATE (SENOKOT S) TABLET PO SCH ×2 (09:00→21:21)
[2020-06-06] MEDS: PIOGLITAZONE 30MG (ACTOS) TAB PO SCH (10:15)
[2020-06-06] MEDS: ENOXAPARIN 40 MG/0.4 ML (LOVENOX) SYR SC SCH (10:15)
[2020-06-06] MEDS: lisINopril 40 MG (PRINIVIL) TABLET PO SCH (10:15)
[2020-06-06] MEDS: PANTOPRAZOLE 20 MG TABLET (PROTONIX) PO SCH (10:15)
--- NOTE | 2020-06-06 12:57 | Progress Note ---
Subjective Subjective/Events-last exam Patient states that she feel worse today. States that she does not have an appetite at all. Having severe fatigue and some shortness of breath when getting to the bathroom. Review of Systems Pulmonary: Dyspnea, Cough Cardiovascular: No: Chest Pain, Palpitations Gastrointestinal: No: Nausea, Vomiting, Abdominal Pain Neurological: Weakness Focused Exam Lactate Level 06/04/20 15:19: Lactic Acid Level 0.70 Objective Exam Last Set of Vital Signs Vital Signs Date Time Temp Pulse Resp B/P (MAP) Pulse Ox O2 Delivery O2 Flow Rate FiO2 06/06/20 12:41 Nasal Cannula 3.00 06/06/20 07:30 36.5 70 18 132/68 (89) 95 Capillary Refill : Less Than 3 Seconds I&O Intake and Output 06/06/20 00:00 Intake Total 1150 ml Output Total 1150 ml Balance 0 ml Intake Oral 1150 ml Output Urine Total 1150 ml # Voids 2 General: Alert, Oriented X3 Lungs: Normal Air Movement, Other (crackles in RUL, normal work of breathing) Heart: Regular Rate, No Murmurs Abdomen: Normal Bowel Sounds, Soft Neuro: Normal Speech Psych/Mental Status: Mood NL Results/Procedures Lab Laboratory Tests 06/06/20 05:45: White Blood Count 6.1, Red Blood Count 3.77L, Hemoglobin 11.2L, Hematocrit 34L, Mean Corpuscular Volume 91, Mean Corpuscular Hemoglobin 30, Mean Corpuscular Hemoglobin Concent 33, Red Cell Distribution Width 12.2, Platelet Count 184, Mean Platelet Volume 10.6, Immature Granulocyte % (Auto) 2, Neutrophils (%) (Auto) 80H, Lymphocytes (%) (Auto) 14, Monocytes (%) (Auto) 4, Eosinophils (%) (Auto) 0, Basophils (%) (Auto) 0, Neutrophils # (Auto) 4.9, Lymphocytes # (Auto) 0.9L, Monocytes # (Auto) 0.3, Eosinophils # (Auto) 0.0, Basophils # (Auto) 0.0, Immature Granulocyte # (Auto) 0.1, Sodium Level 135, Potassium Level 4.3, Chloride Level 103, Carbon Dioxide Level 21, Anion Gap 11, Blood Urea Nitrogen 39H, Creatinine 0.83, Estimat Glomerular Filtration Rate > 60, BUN/Creatinine Ratio 47, Glucose Level 108H, Calcium Level 9.3, Corrected Calcium 9.4, Total Bilirubin 0.3, Aspartate Amino Transf (AST/SGOT) 31, Alanine Aminotransferase (ALT/SGPT) 13, Alkaline Phosphatase 77, Total Protein 8.4H, Albumin 3.9 Assessment/Plan Assessment/Plan Assessment & Plan 69 yo F admitted for severe fatigue and hypoxia 2/2 to Covid PNA Covid PNA Hypoxia NIDDM Plan - Encourage oral hydration - Continue to titrate oxygen as tolerated - Lovenox - Continue Metformin, monitor blood sugars ADIEL BRADY MD Jun 06, 2020 12:57
[2020-06-06] MEDS ORDERED: IBUP-2473 PO (13:55)
--- NOTE | 2020-06-06 14:02 | NUR ---
I SPOKE WITH THE PATIENT ON THE ROOM PHONE, CALLED [facility] AND WENT THROUGH THE EXTERNAL MED HISTORY TO COMPLETE THIS MED REC. SOME CHANGES THAT I MADE TO CONTINUED MEDS ON THE MED REC: PT DOESN'T TAKE CYCLOBENZAPRINE SO I TOOK IT OFF OF THE MED REC. OMEPRAZOLE DAILY AND OMEPRAZOLE BID WERE BOTH ON THE MED REC, I REMOVED OMEPRAZOLE BID AND KEPT THE DAILY ENTRY. PT TAKES SIMVASTATIN DAILY INSTEAD OF HS. PT TAKES 1000MG OF METFORMIN HS INSTEAD OF 500MG METFORMIN BID. TRAMADOL IS PRN TID. FILL DATE FROM [facility] IN [place]: 05/02/2020 PRISTIQ 100MG #90/90DS OTC: IBUPROFEN
[2020-06-06 15:50] VITALS: BP 123/70
--- NOTE | 2020-06-06 18:18 | NUR ---
"RD ASSESSMENT PMHx: hypercholesterolemia; HTN; GERD; DM; PT INTERACTION: Received dietary consult for MST score. Note pt is currently in COVID isolation per chart review. Note all diet information for nutrition consult is per Saundra COELHO or per chart review. Saundra states current appetite appears poor. Note avg PO intake 38% x1d, per chart review. Saundra states no issues with n/v/c/d that she is aware of, and that her last BM was 06/06. Note pt currently on bowel regimen of senna BID, per chart review. Note unable to determine current level of DM management, and unable to determine recent HbA1c, per chart review. Note recent 10# wt loss x11mon, per chart review. Given wt hx, and PO intake, pt does not meet criteria for malnutrition per ASPEN guidelines. Est. kcal needs: 1031-8613 kcal | 15-20 kcal/kg Est. Pro needs: 80-100 g Pro | 0.8-1.0 g Pro/kg PES STATEMENT: Inadequate oral intake (NI-2.1) related to loss of appetite, as evidenced by chart review, and avg PO intake 38% x1d. INTERVENTION: Continue with current diet order of CHO 60g/m 3nsnack diet. Add Glucerna (vary) to meals TID, for increased kcal intake. Provides 220 kcal and 10 g Pro per serving. Will continue to follow and reassess as pt needs, intake, and status change. Colby FORBES, MS RD LD [phone] cell"
[2020-06-06] MEDS: ALPRAZolam 0.25 MG (XANAX) TAB PO PRN (19:38)
--- NOTE | 2020-06-06 20:30 | NUR ---
PT CALLED AND STAYED THAT SHE IS FEELING VERY SOA. O2 STAT IN THE 70S. PLACED PT ON 15L HF. RT NOTIFIED AND SWITCH PT TO OXY MASK. DR BRADY NOTIFIED AND ORDER VAPOTHERM IF NEEDED, MAT PROTOCOL AND TO CALL HER BACK IF PT DOES NOT MAINTENANCE STATS.
[2020-06-06] MEDS: VENlafaxine XR 75 MG (EFFEXOR XR) CAP PO SCH (21:16)
[2020-06-06] MEDS: SIMvastatin 40 MG (ZOCOR) TAB PO SCH (21:16)
[2020-06-06] MEDS: ACETAMINOPHEN 325 MG TABLET PO PRN (21:18)
[2020-06-06 22:25] VITALS: BP 123/70
--- NOTE | 2020-06-06 22:28 | NUR ---
RT MAT INITIATED. WILL START PATIENT ON ALBUTEROL MDI 4 PUFF QID AND Q2 PRN INCENTIVE SPIROMETRY ON OWN 0-6L OF OXYGEN TO KEEP SATURATION ABOVE 90% Addendum: 06/06/20 at 2230 by THELMA KAY RT Amended: Links added.
[2020-06-06] MEDS ORDERED: RT-ALBUTEROL INHALER HFA (VENTOLIN HFA) 18 GM IH PRN (22:45)
[2020-06-07] VITALS (7 sets, daily range): BP systolic 107–139; BP diastolic 53–77
[2020-06-07 05:23] LABS: BASOPHILS % (AUTO) 0 % (0-10); EOSINOPHILS % (AUTO) 0 % (0-10); HEMATOCRIT 33 % (35-52); HEMOGLOBIN 11.1 g/dL (11.5-16.0); LYMPHOCYTES # (AUTO) 0.7 10^3/uL (1.0-4.0); LYMPHOCYTES % (AUTO) 14 % (12-44); MEAN CORPUSCULAR HEMOGLOBIN 30 pg (25-34); MEAN CORPUSCULAR HGB CONC 34 g/dL (32-36); MEAN CORPUSCULAR VOLUME 89 fL (80-99); MEAN PLATELET VOLUME 9.8 fL (9.0-12.2); MONOCYTES # (AUTO) 0.3 10^3/uL (0.0-1.0); MONOCYTES % (AUTO) 6 % (0-12); NEUTROPHILS # (AUTO) 3.7 10^3/uL (1.8-7.8); NEUTROPHILS % (AUTO) 78 % (42-75); PLATELET COUNT 185 10^3/uL (130-400); WHITE BLOOD COUNT 4.8 10^3/uL (4.3-11.0)
[2020-06-07 05:39] LABS: CHLORIDE 100 MMOL/L (98-107); POTASSIUM 4.1 MMOL/L (3.6-5.0); SODIUM 132 MMOL/L (135-145)
[2020-06-07 05:40] LABS: CALCIUM 9.1 MG/DL (8.5-10.1); GLUCOSE 107 MG/DL (70-105)
[2020-06-07 05:42] LABS: CARBON DIOXIDE 21 MMOL/L (21-32)
[2020-06-07 05:44] LABS: CREATININE SERUM 0.76 MG/DL (0.60-1.30); GFR ESTIMATED > 60
[2020-06-07 05:45] LABS: BUN/CREATININE RATIO 45
--- NOTE | 2020-06-07 06:00 | NUR ---
PT GOT UP TO GO TO THE BATHROOM O2 STAT DROPPED IN THE 70s. PT SLOWLY RECOVER AFTER INCREASES O2 TO 15L HIGH FLOW. STATING 90%RT NOTIFIED AND PLACED PT ON VAPOTHERM.
[2020-06-07] MEDS: RT-ALBUTEROL INHALER HFA (VENTOLIN HFA) 18 GM IH SCH ×4 (06:08→18:54)
[2020-06-07] MEDS: lisINopril 40 MG (PRINIVIL) TABLET PO SCH (08:26)
[2020-06-07] MEDS: SENNA W/DOCUSATE (SENOKOT S) TABLET PO SCH ×2 (08:27→19:55)
[2020-06-07] MEDS: ENOXAPARIN 40 MG/0.4 ML (LOVENOX) SYR SC SCH (08:27)
[2020-06-07] MEDS: PIOGLITAZONE 30MG (ACTOS) TAB PO SCH (08:27)
[2020-06-07] MEDS: PANTOPRAZOLE 20 MG TABLET (PROTONIX) PO SCH (08:27)
--- NOTE | 2020-06-07 18:19 | Physician Query Clarification ---
"Physician Query-General Query to Physician: The medical record reflects the following clinical scenario: History/Risk factors: Covid 19 PNA, Chronic Bronchitis Clinical Findings: SaO2 90% on RA on Admission, RR consistently above 20, S0A with minimal activity, Treatment: Vapotherm/High flow NC with 02 as high as 80% FIO2, Breathing RX Question: What condition best reflects the above clinical scenario? Please document response in the Progress notes or Discharge Summary. 1. Acute Hypoxic Respiratory Failure 2. Hypoxia (as currently documented) 3. Other , with explanation of the clinical findings 4. Clinically undetermined, no explanation for the clinical findings Please remember a lack of response to the above will prompt a phone page by CDI/coding staff In responding to this query, please exercise your independent professional judgment. The purpose of this communication is to more accurately reflect the complexity of your patients condition. The fact that a question is asked does not imply that any particular answer is desired or expected. Thank you for timely response to this clarification. Patsy Etienne, MSN, RN RN Specialist-Clinical Doc Improvement CD -Health Info Mgmt Operations [address] [facility] t: [phone] | f: [phone] If you are unable to reach me at my extension, I may be working from home. Please contact me at [phone] PHYSICIAN RESPONSE: Based on the clinical findings in the record, please respond to the query above on this document as an addendum. Physician Response: Physician Response 1 If you have questions please contact: Strip Picker: Ext: Thank you for your time and cooperation. Clinical Project Control Officer/Strip Picker This is a permanent part of the medical record PATSY ETIENNE Jun 07, 2020 18:19 ADIEL BRADY MD Jun 07, 2020 22:43"
[2020-06-07] MEDS: ACETAMINOPHEN 325 MG TABLET PO PRN (18:36)
[2020-06-07] MEDS: SIMvastatin 40 MG (ZOCOR) TAB PO SCH (19:55)
[2020-06-07] MEDS: VENlafaxine XR 75 MG (EFFEXOR XR) CAP PO SCH (19:55)
[2020-06-07] MEDS: metFORMIN 500 MG (GLUCOPHAGE) TAB PO SCH (19:55)
--- NOTE | 2020-06-07 22:08 | Progress Note ---
Subjective Subjective/Events-last exam Patient feeling weak and tired this AM. Had episode last night when she was getting up to the bathroom and dropped into the 70s. Currently on vapotherm. Low appetite but has been trying to stay hydrated. Review of Systems General: Fatigue, Malaise Pulmonary: Dyspnea, Cough Cardiovascular: No: Chest Pain, Palpitations, Edema Gastrointestinal: No: Nausea, Vomiting, Abdominal Pain, Diarrhea, Constipation Neurological: Weakness, Incoordination Objective Exam Last Set of Vital Signs Vital Signs Date Time Temp Pulse Resp B/P (MAP) Pulse Ox O2 Delivery O2 Flow Rate FiO2 06/07/20 19:50 High Flow N/C 3.00 06/07/20 19:41 36.4 74 18 132/74 (93) 96 06/07/20 10:56 75 Capillary Refill : Less Than 3 Seconds I&O Intake and Output 06/07/20 00:00 Intake Total 1215 ml Output Total 300 ml Balance 915 ml Intake Oral 1215 ml Output Urine Total 300 ml # Voids 5 # Bowel Movements 1 General: Alert, Oriented X3, No Acute Distress Lungs: Clear to Auscultation, Normal Air Movement Heart: Regular Rate, No Murmurs Abdomen: Normal Bowel Sounds, Soft, No Tenderness, No Masses Extremities: No Edema, No Tenderness/Swelling Neuro: Normal Speech, Strength at 5/5 X4 Ext, Sensation Intact, Cranial Nerves 3-12 NL Results/Procedures Lab Laboratory Tests 06/07/20 05:15: White Blood Count 4.8, Red Blood Count 3.73L, Hemoglobin 11.1L, Hematocrit 33L, Mean Corpuscular Volume 89, Mean Corpuscular Hemoglobin 30, Mean Corpuscular Hemoglobin Concent 34, Red Cell Distribution Width 12.2, Platelet Count 185, Mean Platelet Volume 9.8, Immature Granulocyte % (Auto) 2, Neutrophils (%) (Auto) 78H, Lymphocytes (%) (Auto) 14, Monocytes (%) (Auto) 6, Eosinophils (%) (Auto) 0, Basophils (%) (Auto) 0, Neutrophils # (Auto) 3.7, Lymphocytes # (Auto) 0.7L, Monocytes # (Auto) 0.3, Eosinophils # (Auto) 0.0, Basophils # (Auto) 0.0, Immature Granulocyte # (Auto) 0.1, Sodium Level 132L, Potassium Level 4.1, Chloride Level 100, Carbon Dioxide Level 21, Anion Gap 11, Blood Urea Nitrogen 34H, Creatinine 0.76, Estimat Glomerular Filtration Rate > 60, BUN/Creatinine Ratio 45, Glucose Level 107H, Calcium Level 9.1 Assessment/Plan Assessment/Plan Assessment & Plan 69 yo F admitted for severe fatigue and hypoxia 2/2 to Covid PNA Covid PNA Hypoxia NIDDM Plan - Encourage oral hydration - Continue to titrate oxygen as tolerated, will try and get patient off vapotherm today - Lovenox - Continue Metformin, monitor blood sugars ADIEL BRADY MD Jun 07, 2020 22:08
[2020-06-08] MEDS: RT-ALBUTEROL INHALER HFA (VENTOLIN HFA) 18 GM IH SCH ×5 (01:00→18:57)
[2020-06-08 03:56] VITALS: BP 140/72
[2020-06-08 06:33] LABS: BASOPHILS % (AUTO) 0 % (0-10); EOSINOPHILS % (AUTO) 1 % (0-10); HEMATOCRIT 33 % (35-52); LYMPHOCYTES # (AUTO) 0.9 10^3/uL (1.0-4.0); LYMPHOCYTES % (AUTO) 13 % (12-44); MEAN CORPUSCULAR HEMOGLOBIN 30 pg (25-34); MEAN CORPUSCULAR HGB CONC 34 g/dL (32-36); MEAN CORPUSCULAR VOLUME 88 fL (80-99); MEAN PLATELET VOLUME 10.2 fL (9.0-12.2); MONOCYTES # (AUTO) 0.3 10^3/uL (0.0-1.0); MONOCYTES % (AUTO) 5 % (0-12); NEUTROPHILS # (AUTO) 5.2 10^3/uL (1.8-7.8); NEUTROPHILS % (AUTO) 80 % (42-75); PLATELET COUNT 225 10^3/uL (130-400); WHITE BLOOD COUNT 6.5 10^3/uL (4.3-11.0)
[2020-06-08 06:44] LABS: CHLORIDE 102 MMOL/L (98-107); POTASSIUM 3.6 MMOL/L (3.6-5.0); SODIUM 135 MMOL/L (135-145)
[2020-06-08 06:45] LABS: CALCIUM 9.1 MG/DL (8.5-10.1)
[2020-06-08 06:46] LABS: GLUCOSE 94 MG/DL (70-105)
[2020-06-08 06:47] LABS: CARBON DIOXIDE 21 MMOL/L (21-32)
[2020-06-08 06:50] LABS: BUN/CREATININE RATIO 44; CREATININE SERUM 0.73 MG/DL (0.60-1.30); GFR ESTIMATED > 60
[2020-06-08 08:12] VITALS: BP 118/62
[2020-06-08] MEDS: PANTOPRAZOLE 20 MG TABLET (PROTONIX) PO SCH (08:16)
[2020-06-08] MEDS: lisINopril 40 MG (PRINIVIL) TABLET PO SCH (08:16)
[2020-06-08] MEDS: PIOGLITAZONE 30MG (ACTOS) TAB PO SCH (08:16)
[2020-06-08] MEDS: SENNA W/DOCUSATE (SENOKOT S) TABLET PO SCH ×2 (08:16→19:56)
[2020-06-08] MEDS: ENOXAPARIN 40 MG/0.4 ML (LOVENOX) SYR SC SCH (08:17)
[2020-06-08 12:24] VITALS: BP 130/67
[2020-06-08 15:37] VITALS: BP 134/72
[2020-06-08 19:39] VITALS: BP 142/78
[2020-06-08] MEDS: SIMvastatin 40 MG (ZOCOR) TAB PO SCH (19:56)
[2020-06-08] MEDS: metFORMIN 500 MG (GLUCOPHAGE) TAB PO SCH (19:56)
[2020-06-08] MEDS: VENlafaxine XR 75 MG (EFFEXOR XR) CAP PO SCH (19:56)
--- NOTE | 2020-06-08 20:25 | Progress Note ---
Subjective Subjective/Events-last exam Patient states that she is feeling somewhat better. She is still on vapotherm and has episodes of desaturation with minimal activity. Tolerating PO diet. Review of Systems Pulmonary: Dyspnea, Cough Cardiovascular: No: Chest Pain Gastrointestinal: No: Nausea, Vomiting, Abdominal Pain, Diarrhea, Constipation Genitourinary: No Dysuria, No Frequency Neurological: Weakness, Incoordination Objective Exam Last Set of Vital Signs Vital Signs Date Time Temp Pulse Resp B/P (MAP) Pulse Ox O2 Delivery O2 Flow Rate FiO2 06/08/20 19:39 36.8 80 22 142/78 (99) 90 Vapotherm 25.00 50.00 06/08/20 18:57 50 Capillary Refill : Less Than 3 Seconds I&O Intake and Output 06/08/20 00:00 Intake Total 1210 ml Balance 1210 ml Intake Oral 1210 ml # Voids 6 # Bowel Movements 2 General: Alert, Oriented X3, Cooperative, No Acute Distress HEENT: Mucous Memb Moist/[place] Lungs: Clear to Auscultation, Other (increased work of breathing with minimal activity) Heart: Regular Rate, No Murmurs Abdomen: Normal Bowel Sounds, Soft, No Tenderness, No Masses Extremities: No Edema, No Tenderness/Swelling Neuro: Normal Speech Results/Procedures Lab Laboratory Tests 06/08/20 05:54: White Blood Count 6.5, Red Blood Count 3.69L, Hemoglobin 11.0L, Hematocrit 33L, Mean Corpuscular Volume 88, Mean Corpuscular Hemoglobin 30, Mean Corpuscular Hemoglobin Concent 34, Red Cell Distribution Width 12.1, Platelet Count 225, Mean Platelet Volume 10.2, Immature Granulocyte % (Auto) 1, Neutrophils (%) (Auto) 80H, Lymphocytes (%) (Auto) 13, Monocytes (%) (Auto) 5, Eosinophils (%) (Auto) 1, Basophils (%) (Auto) 0, Neutrophils # (Auto) 5.2, Lymphocytes # (Auto) 0.9L, Monocytes # (Auto) 0.3, Eosinophils # (Auto) 0.0, Basophils # (Auto) 0.0, Immature Granulocyte # (Auto) 0.1, Sodium Level 135, Potassium Level 3.6, Chloride Level 102, Carbon Dioxide Level 21, Anion Gap 12, Blood Urea Nitrogen 32H, Creatinine 0.73, Estimat Glomerular Filtration Rate > 60, BUN/Creatinine Ratio 44, Glucose Level 94, Calcium Level 9.1 Assessment/Plan Assessment/Plan Assessment & Plan 69 yo F admitted for severe fatigue and hypoxia 2/2 to Covid PNA Covid PNA Hypoxia NIDDM Debility Plan - Encourage oral hydration - Continue to titrate oxygen as tolerated, MAT protocol, prone when in bed, Deca dron - Lovenox - Continue Metformin, monitor blood sugars, SSI, Accuchecks ADIEL BRADY MD Jun 08, 2020 20:25
[2020-06-09 00:14] VITALS: BP 132/60
[2020-06-09 03:35] VITALS: BP 106/55
[2020-06-09] MEDS: RT-ALBUTEROL INHALER HFA (VENTOLIN HFA) 18 GM IH SCH ×6 (07:26→21:51)
[2020-06-09 08:00] VITALS: BP 125/67
[2020-06-09 09:14] LABS: BASOPHILS % (AUTO) 0 % (0-10); EOSINOPHILS # (AUTO) 0.1 10^3/uL (0.0-0.3); EOSINOPHILS % (AUTO) 1 % (0-10); HEMATOCRIT 36 % (35-52); HEMOGLOBIN 11.9 g/dL (11.5-16.0); LYMPHOCYTES # (AUTO) 0.8 10^3/uL (1.0-4.0); LYMPHOCYTES % (AUTO) 11 % (12-44); MEAN CORPUSCULAR HEMOGLOBIN 30 pg (25-34); MEAN CORPUSCULAR HGB CONC 33 g/dL (32-36); MEAN CORPUSCULAR VOLUME 89 fL (80-99); MEAN PLATELET VOLUME 9.9 fL (9.0-12.2); MONOCYTES # (AUTO) 0.4 10^3/uL (0.0-1.0); MONOCYTES % (AUTO) 5 % (0-12); NEUTROPHILS # (AUTO) 5.7 10^3/uL (1.8-7.8); NEUTROPHILS % (AUTO) 81 % (42-75); PLATELET COUNT 227 10^3/uL (130-400)
[2020-06-09] MEDS: SENNA W/DOCUSATE (SENOKOT S) TABLET PO SCH ×2 (09:15→21:04)
[2020-06-09] MEDS: PIOGLITAZONE 30MG (ACTOS) TAB PO SCH (09:15)
[2020-06-09] MEDS: ENOXAPARIN 40 MG/0.4 ML (LOVENOX) SYR SC SCH (09:15)
[2020-06-09] MEDS: PANTOPRAZOLE 20 MG TABLET (PROTONIX) PO SCH (09:15)
[2020-06-09] MEDS: lisINopril 40 MG (PRINIVIL) TABLET PO SCH (09:16)
[2020-06-09 09:36] LABS: BUN/CREATININE RATIO 38; CALCIUM 9.3 MG/DL (8.5-10.1); CARBON DIOXIDE 18 MMOL/L (21-32); CHLORIDE 101 MMOL/L (98-107); CREATININE SERUM 0.81 MG/DL (0.60-1.30); GFR ESTIMATED > 60; GLUCOSE 134 MG/DL (70-105); POTASSIUM 3.5 MMOL/L (3.6-5.0); SODIUM 134 MMOL/L (135-145)
[2020-06-09 12:00] VITALS: BP 136/70
[2020-06-09 15:48] VITALS: BP 131/67
--- NOTE | 2020-06-09 19:24 | Progress Note ---
Subjective Subjective/Events-last exam Patient states that she is feeling better. Denies any pain. States that she is still getting short of breath walking around the room. Tolerating PO diet. Review of Systems Pulmonary: Dyspnea, Cough Cardiovascular: No: Chest Pain, Palpitations, Edema Gastrointestinal: No: Nausea, Vomiting, Abdominal Pain, Diarrhea, Constipation Neurological: Weakness, Incoordination Objective Exam Last Set of Vital Signs Vital Signs Date Time Temp Pulse Resp B/P (MAP) Pulse Ox O2 Delivery O2 Flow Rate FiO2 06/09/20 18:44 93 Vapotherm 25.00 45 06/09/20 15:48 36.5 75 16 131/67 (88) Capillary Refill : Less Than 3 Seconds I&O Intake and Output 06/09/20 00:00 Intake Total 840 ml Balance 840 ml Intake Oral 840 ml # Voids 8 # Bowel Movements 2 General: Alert, Oriented X3, No Acute Distress Lungs: Clear to Auscultation, Normal Air Movement Heart: Regular Rate, No Murmurs Abdomen: Normal Bowel Sounds, Soft, No Tenderness, No Masses Extremities: No Edema, No Tenderness/Swelling Skin: No Rashes Neuro: Normal Speech, Sensation Intact, Cranial Nerves 3-12 NL Results/Procedures Lab Laboratory Tests 06/09/20 09:05: White Blood Count 7.0, Red Blood Count 4.04, Hemoglobin 11.9, Hematocrit 36, Mean Corpuscular Volume 89, Mean Corpuscular Hemoglobin 30, Mean Corpuscular Hemoglobin Concent 33, Red Cell Distribution Width 12.3, Platelet Count 227, Mean Platelet Volume 9.9, Immature Granulocyte % (Auto) 2, Neutrophils (%) ( Auto) 81H, Lymphocytes (%) (Auto) 11L, Monocytes (%) (Auto) 5, Eosinophils (%) (Auto) 1, Basophils (%) (Auto) 0, Neutrophils # (Auto) 5.7, Lymphocytes # (Auto) 0.8L, Monocytes # (Auto) 0.4, Eosinophils # (Auto) 0.1, Basophils # (Auto) 0.0, Immature Granulocyte # (Auto) 0.1, Sodium Level 134L, Potassium Level 3.5L, Chloride Level 101, Carbon Dioxide Level 18L, Anion Gap 15H, Blood Urea Nitrogen 31H, Creatinine 0.81, Estimat Glomerular Filtration Rate > 60, BUN/Creatinine Ratio 38, Glucose Level 134H, Calcium Level 9.3 Assessment/Plan Assessment/Plan Assessment & Plan 69 yo F admitted for severe fatigue and hypoxia 2/2 to Covid PNA Covid PNA Hypoxia NIDDM Debility Plan - Encourage oral hydration - Continue to titrate oxygen as tolerated, MAT protocol, prone when in bed, Decadron - Recommend ambulating around the room - Lovenox - Continue Metformin, monitor blood sugars, SSI, Accuchecks ADIEL BRADY MD Jun 09, 2020 19:24
[2020-06-09 20:15] VITALS: BP 108/71
[2020-06-09] MEDS: inSUlin ASPART (NovoLOG) 1 UNIT/0.01 ML (CHARGE PER UNIT) SC SCH (21:03)
[2020-06-09] MEDS: metFORMIN 500 MG (GLUCOPHAGE) TAB PO SCH (21:04)
[2020-06-09] MEDS: SIMvastatin 40 MG (ZOCOR) TAB PO SCH (21:04)
[2020-06-09] MEDS: VENlafaxine XR 75 MG (EFFEXOR XR) CAP PO SCH (21:04)
--- NOTE | 2020-06-09 22:40 | NUR ---
called pt daughter back to give update on pt status at this time.
[2020-06-10 00:43] VITALS: BP 115/59
[2020-06-10] MEDS: RT-ALBUTEROL INHALER HFA (VENTOLIN HFA) 18 GM IH SCH ×5 (01:58→19:22)
[2020-06-10] MEDS: inSUlin ASPART (NovoLOG) 1 UNIT/0.01 ML (CHARGE PER UNIT) SC SCH ×4 (05:24→20:57)
[2020-06-10 06:40] LABS: BASOPHILS % (AUTO) 0 % (0-10); EOSINOPHILS # (AUTO) 0.1 10^3/uL (0.0-0.3); EOSINOPHILS % (AUTO) 1 % (0-10); HEMATOCRIT 34 % (35-52); HEMOGLOBIN 11.3 g/dL (11.5-16.0); LYMPHOCYTES # (AUTO) 0.8 10^3/uL (1.0-4.0); LYMPHOCYTES % (AUTO) 10 % (12-44); MEAN CORPUSCULAR HEMOGLOBIN 30 pg (25-34); MEAN CORPUSCULAR HGB CONC 33 g/dL (32-36); MEAN CORPUSCULAR VOLUME 90 fL (80-99); MEAN PLATELET VOLUME 10.5 fL (9.0-12.2); MONOCYTES # (AUTO) 0.4 10^3/uL (0.0-1.0); MONOCYTES % (AUTO) 6 % (0-12); NEUTROPHILS # (AUTO) 5.8 10^3/uL (1.8-7.8); NEUTROPHILS % (AUTO) 81 % (42-75); PLATELET COUNT 229 10^3/uL (130-400); WHITE BLOOD COUNT 7.2 10^3/uL (4.3-11.0)
[2020-06-10 06:54] LABS: CHLORIDE 103 MMOL/L (98-107); POTASSIUM 3.8 MMOL/L (3.6-5.0); SODIUM 137 MMOL/L (135-145)
[2020-06-10 06:55] LABS: CALCIUM 9.5 MG/DL (8.5-10.1)
[2020-06-10 06:56] LABS: GLUCOSE 85 MG/DL (70-105)
[2020-06-10 06:57] LABS: CARBON DIOXIDE 20 MMOL/L (21-32)
[2020-06-10 07:00] LABS: CREATININE SERUM 0.76 MG/DL (0.60-1.30); GFR ESTIMATED > 60
[2020-06-10 07:01] LABS: BUN/CREATININE RATIO 41
[2020-06-10 08:00] VITALS: BP 127/69
[2020-06-10] MEDS: lisINopril 40 MG (PRINIVIL) TABLET PO SCH (08:44)
[2020-06-10] MEDS: PIOGLITAZONE 30MG (ACTOS) TAB PO SCH (08:44)
[2020-06-10] MEDS: SENNA W/DOCUSATE (SENOKOT S) TABLET PO SCH ×2 (08:44→20:17)
[2020-06-10] MEDS: ENOXAPARIN 40 MG/0.4 ML (LOVENOX) SYR SC SCH (08:44)
[2020-06-10] MEDS: PANTOPRAZOLE 20 MG TABLET (PROTONIX) PO SCH (08:44)
[2020-06-10 15:51] VITALS: BP 127/69
[2020-06-10 16:00] VITALS: BP 134/71
--- NOTE | 2020-06-10 16:02 | Progress Note ---
Subjective Subjective/Events-last exam Patient states that she feels better today. Requiring slow titration of oxygen. Tolerating PO diet. Getting up to bedside commod. Review of Systems Pulmonary: No Dyspnea, No Cough Cardiovascular: No: Chest Pain, Palpitations, Edema Gastrointestinal: No: Nausea, Vomiting, Abdominal Pain, Diarrhea, Constipation Neurological: Weakness, Incoordination Objective Exam Last Set of Vital Signs Vital Signs Date Time Temp Pulse Resp B/P (MAP) Pulse Ox O2 Delivery O2 Flow Rate FiO2 06/10/20 15:51 35.8 77 94 32 06/10/20 15:18 High Flow N/C 3.00 06/10/20 08:00 20 127/69 (88) Capillary Refill : Less Than 3 Seconds I&O Intake and Output 06/10/20 00:00 Intake Total 1345 ml Balance 1345 ml Intake Oral 1345 ml # Voids 6 # Bowel Movements 1 General: Alert, Oriented X3, Mild Distress (with any activity) Lungs: Clear to Auscultation, Normal Air Movement Heart: Regular Rate, No Murmurs Abdomen: Normal Bowel Sounds, Soft, No Tenderness, No Masses Extremities: No Edema, No Tenderness/Swelling Results/Procedures Lab Laboratory Tests 06/09/20 20:17: Glucometer 181H 06/10/20 05:13: Glucometer 95 06/10/20 05:49: White Blood Count 7.2, Red Blood Count 3.81, Hemoglobin 11.3L, Hematocrit 34L, Mean Corpuscular Volume 90, Mean Corpuscular Hemoglobin 30, Mean Corpuscular Hemoglobin Concent 33, Red Cell Distribution Width 12.2, Platelet Count 229, Mean Platelet Volume 10.5, Immature Granulocyte % (Auto) 2, Neutrophils (%) (Auto) 81H, Lymphocytes (%) (Auto) 10L, Monocytes (%) (Auto) 6, Eosinophils (%) (Auto) 1, Basophils (%) (Auto) 0, Neutrophils # (Auto) 5.8, Lymphocytes # (Auto) 0.8L, Monocytes # (Auto) 0.4, Eosinophils # (Auto) 0.1, Basophils # (Auto) 0.0, Immature Granulocyte # (Auto) 0.2H, Sodium Level 137, Potassium Level 3.8, Chloride Level 103, Carbon Dioxide Level 20L, Anion Gap 14, Blood Urea Nitrogen 31H, Creatinine 0.76, Estimat Glomerular Filtration Rate > 60, BUN/Creatinine Ratio 41, Glucose Level 85, Calcium Level 9.5 06/10/20 10:45: Glucometer 153H Assessment/Plan Assessment/Plan Assessment & Plan 69 yo F admitted for severe fatigue and hypoxia 2/2 to Covid PNA Covid PNA Hypoxia NIDDM Debility Plan - Encourage oral hydration - Continue to titrate oxygen as tolerated, MAT protocol, prone when in bed, Decadron - Patient requiring long titration of oxygen, consider Swing bed - Recommend ambulating around the room - Lovenox - Continue Metformin, monitor blood sugars, SSI, Accuchecks ADIEL BRADY MD Jun 10, 2020 16:02
[2020-06-10] MEDS: SIMvastatin 40 MG (ZOCOR) TAB PO SCH (20:17)
[2020-06-10] MEDS: MELATONIN 3 MG TABLET PO PRN (20:17)
[2020-06-10] MEDS: metFORMIN 500 MG (GLUCOPHAGE) TAB PO SCH (20:18)
[2020-06-10] MEDS: VENlafaxine XR 75 MG (EFFEXOR XR) CAP PO SCH (20:41)
[2020-06-10] MEDS: ACETAMINOPHEN 325 MG TABLET PO PRN (20:41)
[2020-06-11 00:08] VITALS: BP 120/59
[2020-06-11] MEDS: RT-ALBUTEROL INHALER HFA (VENTOLIN HFA) 18 GM IH SCH ×4 (02:42→19:02)
[2020-06-11] MEDS: inSUlin ASPART (NovoLOG) 1 UNIT/0.01 ML (CHARGE PER UNIT) SC SCH ×4 (06:20→20:21)
[2020-06-11 07:10] LABS: CHLORIDE 101 MMOL/L (98-107); POTASSIUM 3.6 MMOL/L (3.6-5.0); SODIUM 134 MMOL/L (135-145)
[2020-06-11 07:11] LABS: CALCIUM 9.1 MG/DL (8.5-10.1)
[2020-06-11 07:12] LABS: BASOPHILS % (AUTO) 0 % (0-10); EOSINOPHILS # (AUTO) 0.1 10^3/uL (0.0-0.3); EOSINOPHILS % (AUTO) 2 % (0-10); GLUCOSE 98 MG/DL (70-105); HEMATOCRIT 34 % (35-52); HEMOGLOBIN 11.3 g/dL (11.5-16.0); LYMPHOCYTES # (AUTO) 0.7 10^3/uL (1.0-4.0); LYMPHOCYTES % (AUTO) 11 % (12-44); MEAN CORPUSCULAR HEMOGLOBIN 29 pg (25-34); MEAN CORPUSCULAR HGB CONC 33 g/dL (32-36); MEAN CORPUSCULAR VOLUME 88 fL (80-99); MONOCYTES # (AUTO) 0.5 10^3/uL (0.0-1.0); MONOCYTES % (AUTO) 6 % (0-12); NEUTROPHILS # (AUTO) 5.6 10^3/uL (1.8-7.8); NEUTROPHILS % (AUTO) 79 % (42-75); PLATELET COUNT 261 10^3/uL (130-400)
[2020-06-11 07:13] LABS: CARBON DIOXIDE 20 MMOL/L (21-32)
[2020-06-11 07:16] LABS: CREATININE SERUM 0.73 MG/DL (0.60-1.30); GFR ESTIMATED > 60
[2020-06-11 07:17] LABS: BUN/CREATININE RATIO 38
[2020-06-11 07:33] VITALS: BP 119/64
[2020-06-11] MEDS: PANTOPRAZOLE 20 MG TABLET (PROTONIX) PO SCH (09:55)
[2020-06-11] MEDS: lisINopril 40 MG (PRINIVIL) TABLET PO SCH (09:55)
[2020-06-11] MEDS: SENNA W/DOCUSATE (SENOKOT S) TABLET PO SCH ×2 (09:56→20:24)
[2020-06-11] MEDS: PIOGLITAZONE 30MG (ACTOS) TAB PO SCH (09:56)
[2020-06-11] MEDS: ENOXAPARIN 40 MG/0.4 ML (LOVENOX) SYR SC SCH (09:56)
--- NOTE | 2020-06-11 12:35 | Progress Note - Hospitalist ---
Subjective HPI/CC On Admission Date Seen by Provider: Jun 11, 2020 Time Seen by Provider: 11:30 CC: Dyspnea with COVID-19 HPI: This is a 69[facility]WF of [facility] who presents from [facility] with dyspnea and hypoxia and 7 days hx of COVID. Patient was placed on 2L/min and monitored closely. Home meds were started and maintained. Denies fever. Subjective/Events-last exam Patient complains of significant fatigue but denies chills or fever. She was able to take a shower this morning which as far as I can tell is the first time she has been out of bed. She reported significant fatigue but had no lightheadedness. Objective Exam Vital Signs Vital Signs Date Time Temp Pulse Resp B/P (MAP) Pulse Ox O2 Delivery O2 Flow Rate FiO2 06/11/20 08:00 97 High Flow N/C 3.00 06/11/20 07:33 36.1 77 20 119/64 (82) 06/10/20 15:51 32 Capillary Refill : Less Than 3 Seconds General Appearance: No Apparent Distress, Obese Respiratory: No Accessory Muscle Use, No Respiratory Distress, Other (Few b asilar rales noted otherwise chest clear) Cardiovascular: Regular Rate, Rhythm, No Edema, No Gallop, No JVD, No Murmur, Normal Peripheral Pulses Gastrointestinal: Normal Bowel Sounds, No Organomegaly, No Pulsatile Mass, Non Tender, Soft Results/Procedures Lab Laboratory Tests 06/11/20 06:55 Patient resulted labs reviewed. Assessment/Plan Assessment and Plan Assess & Plan/Chief Complaint Assessment & Plan 69 yo F admitted for severe fatigue and hypoxia 2/2 to [facility].Today as far as I can tell webb the first time she has been out of bed to shower. She reports significant fatigue with this but had no lightheadedness or presyncope. We discussed the importance of moving even though it would lead to fatigue and the need to set up for meals. Also discussed likely initiation of physical therapy this Saturday. [facility] Slowly improving Hypoxia NIDDM Debility Critical Care Critically Ill Patient RUSS MENON MD Jun 11, 2020 12:35
[2020-06-11 16:17] VITALS: BP 112/78
[2020-06-11] MEDS: MELATONIN 3 MG TABLET PO PRN (20:22)
[2020-06-11] MEDS: metFORMIN 500 MG (GLUCOPHAGE) TAB PO SCH (20:23)
[2020-06-11] MEDS: SIMvastatin 40 MG (ZOCOR) TAB PO SCH (20:23)
[2020-06-11] MEDS: VENlafaxine XR 75 MG (EFFEXOR XR) CAP PO SCH (20:23)
[2020-06-11 23:14] VITALS: BP 114/55
[2020-06-12] MEDS: RT-ALBUTEROL INHALER HFA (VENTOLIN HFA) 18 GM IH SCH ×4 (02:58→19:08)
[2020-06-12] MEDS: inSUlin ASPART (NovoLOG) 1 UNIT/0.01 ML (CHARGE PER UNIT) SC SCH ×4 (05:30→20:40)
[2020-06-12 07:35] VITALS: BP 101/64
[2020-06-12] MEDS: lisINopril 40 MG (PRINIVIL) TABLET PO SCH (09:18)
[2020-06-12] MEDS: SENNA W/DOCUSATE (SENOKOT S) TABLET PO SCH ×2 (09:18→20:40)
[2020-06-12] MEDS: PANTOPRAZOLE 20 MG TABLET (PROTONIX) PO SCH (09:18)
[2020-06-12] MEDS: ENOXAPARIN 40 MG/0.4 ML (LOVENOX) SYR SC SCH (09:18)
[2020-06-12] MEDS: PIOGLITAZONE 30MG (ACTOS) TAB PO SCH (09:18)
--- NOTE | 2020-06-12 12:55 | Progress Note - Hospitalist ---
Subjective HPI/CC On Admission Date Seen by Provider: Jun 12, 2020 Time Seen by Provider: 12:00 CC: Dyspnea with COVID-19 HPI: This is a 69yoWF of [facility] who presents from [facility] with dyspnea and hypoxia and 7 days hx of COVID. Patient was placed on 2L/min and monitored closely. Home meds were started and maintained. Denies fever. Subjective/Events-last exam Patient reports getting to the bathroom and back still wipes her out but she is sitting up for meals. She denies shortness of breath at rest mild nonproductive cough no difficulty with sleep no chest pain. Objective Exam Vital Signs Vital Signs Date Time Temp Pulse Resp B/P (MAP) Pulse Ox O2 Delivery O2 Flow Rate FiO2 06/12/20 08:45 High Flow N/C 5.00 06/12/20 07:35 36.0 64 18 101/64 (76) 91 06/10/20 15:51 32 Capillary Refill : Less Than 3 Seconds General Appearance: No Apparent Distress Respiratory: No Accessory Muscle Use (Few fine rales in the mid ignacio p osteriorly chest otherwise clear), No Respiratory Distress, Other Cardiovascular: Regular Rate, Rhythm, No Edema, No Gallop, No JVD, No Murmur, Normal Peripheral Pulses Extremity: Normal Inspection, Normal Range of Motion, Non Tender, No Calf Tenderness, No Pedal Edema Results/Procedures Lab Patient resulted labs reviewed. Assessment/Plan Assessment and Plan Assess & Plan/Chief Complaint Assessment & Plan 69 yo F admitted for severe fatigue and hypoxia 2/2 to [facility].Today as far as I can tell webb the first time she has been out of bed to shower. She reports significant fatigue with this but had no lightheadedness or presyncope. We discussed the importance of moving even though it would lead to fatigue and the need to set up for meals. She has been following through with sitting up and making trips to the bathroom and back and even showered yesterday. Oxygen requirements decreasing patient encouraged.. [facility] Slowly improving Hypoxia NIDDM Debility Critical Care Critically Ill Patient RUSS MENON MD Jun 12, 2020 12:55
[2020-06-12 16:00] VITALS: BP 114/74
[2020-06-12] MEDS: SIMvastatin 40 MG (ZOCOR) TAB PO SCH (20:40)
[2020-06-12] MEDS: MELATONIN 3 MG TABLET PO PRN (20:40)
[2020-06-12] MEDS: metFORMIN 500 MG (GLUCOPHAGE) TAB PO SCH (20:40)
[2020-06-12] MEDS: VENlafaxine XR 75 MG (EFFEXOR XR) CAP PO SCH (20:40)
[2020-06-13 00:38] VITALS: BP 102/63
[2020-06-13] MEDS: RT-ALBUTEROL INHALER HFA (VENTOLIN HFA) 18 GM IH SCH ×4 (03:19→21:53)
[2020-06-13] MEDS: inSUlin ASPART (NovoLOG) 1 UNIT/0.01 ML (CHARGE PER UNIT) SC SCH ×4 (06:01→21:21)
[2020-06-13 06:18] LABS: BASOPHILS % (AUTO) 0 % (0-10); EOSINOPHILS # (AUTO) 0.1 10^3/uL (0.0-0.3); EOSINOPHILS % (AUTO) 1 % (0-10); HEMATOCRIT 35 % (35-52); HEMOGLOBIN 11.5 g/dL (11.5-16.0); LYMPHOCYTES # (AUTO) 0.9 10^3/uL (1.0-4.0); LYMPHOCYTES % (AUTO) 10 % (12-44); MEAN CORPUSCULAR HEMOGLOBIN 30 pg (25-34); MEAN CORPUSCULAR HGB CONC 33 g/dL (32-36); MEAN CORPUSCULAR VOLUME 89 fL (80-99); MEAN PLATELET VOLUME 9.9 fL (9.0-12.2); MONOCYTES # (AUTO) 0.7 10^3/uL (0.0-1.0); MONOCYTES % (AUTO) 8 % (0-12); NEUTROPHILS # (AUTO) 6.9 10^3/uL (1.8-7.8); NEUTROPHILS % (AUTO) 79 % (42-75); PLATELET COUNT 303 10^3/uL (130-400); WHITE BLOOD COUNT 8.8 10^3/uL (4.3-11.0)
[2020-06-13 06:35] LABS: ALBUMIN 3.6 GM/DL (3.2-4.5); CHLORIDE 101 MMOL/L (98-107); POTASSIUM 3.8 MMOL/L (3.6-5.0); SODIUM 133 MMOL/L (135-145)
[2020-06-13 06:37] LABS: GLUCOSE 107 MG/DL (70-105); TOTAL PROTEIN 7.8 GM/DL (6.4-8.2)
[2020-06-13 06:39] LABS: BILIRUBIN,TOTAL 0.4 MG/DL (0.1-1.0); CARBON DIOXIDE 20 MMOL/L (21-32)
[2020-06-13 06:41] LABS: ALKALINE PHOSPHATASE 73 U/L (40-136); CREATININE SERUM 0.82 MG/DL (0.60-1.30); GFR ESTIMATED > 60
[2020-06-13 06:42] LABS: BUN/CREATININE RATIO 40
[2020-06-13 06:44] LABS: ALANINE AMINOTRANSFERASE 10 U/L (0-55)
[2020-06-13 08:00] VITALS: BP 106/61
[2020-06-13] MEDS: PIOGLITAZONE 30MG (ACTOS) TAB PO SCH (08:29)
[2020-06-13] MEDS: ENOXAPARIN 40 MG/0.4 ML (LOVENOX) SYR SC SCH (08:30)
[2020-06-13] MEDS: PANTOPRAZOLE 20 MG TABLET (PROTONIX) PO SCH (08:30)
[2020-06-13] MEDS: MELATONIN 3 MG TABLET PO PRN ×2 (08:30→21:28)
[2020-06-13] MEDS: lisINopril 40 MG (PRINIVIL) TABLET PO SCH (08:30)
[2020-06-13] MEDS: SENNA W/DOCUSATE (SENOKOT S) TABLET PO SCH ×2 (08:31→21:22)
--- NOTE | 2020-06-13 10:53 | Progress Note - Hospitalist ---
Subjective HPI/CC On Admission Date Seen by Provider: Jun 13, 2020 Time Seen by Provider: 10:00 CC: Dyspnea with COVID-19 HPI: This is a 69[place]WF of [facility] who presents from [facility] with dyspnea and hypoxia and 7 days hx of COVID. Patient was placed on 2L/min and monitored closely. Home meds were started and maintained. Denies fever. Subjective/Events-last exam Pt very fatigued With the least bit of movement she becomes SOB Reviewed meds and labs Bowels are moving well on the bedside commode beside her Maintain on Vapotherm Review of Systems General: Fatigue, Malaise Pulmonary: Dyspnea Objective Exam Vital Signs Vital Signs Date Time Temp Pulse Resp B/P (MAP) Pulse Ox O2 Delivery O2 Flow Rate FiO2 06/14/20 03:33 90 Nasal Cannula 5.00 06/14/20 03:02 36.0 61 18 121/68 (85) 06/10/20 15:51 32 Capillary Refill : Less Than 3 Seconds General Appearance: No Apparent Distress, WD/WN, Chronically ill Respiratory: Lungs Clear, Decreased Breath Sounds Cardiovascular: Regular Rate, Rhythm Neurologic/Psychiatric: Alert, Oriented x3, No Motor/Sensory Deficits, Normal Mood/Affect Results/Procedures Lab Laboratory Tests 06/13/20 05:56 06/14/20 05:08 Patient resulted labs reviewed. Assessment/Plan Assessment and Plan Assess & Plan/Chief Complaint Assessment: COVID-19 PNA Hypoxia DM GERD Plan: Monitor O2 Supportive senior care meds Lovenox 06/05/20: O2 Lovenox Monitor closely 06/13/20: Monitor O2 Supportive care Critical Care Critically Ill Patient Diagnosis/Problems Diagnosis/Problems (1) Pneumonia due to COVID-19 virus Status: Acute (2) Hypoxia Status: Acute LICHA NGUYEN DO Jun 13, 2020 10:53
[2020-06-13 15:18] VITALS: BP 112/64
[2020-06-13] MEDS: VENlafaxine XR 75 MG (EFFEXOR XR) CAP PO SCH (21:23)
[2020-06-13] MEDS: SIMvastatin 40 MG (ZOCOR) TAB PO SCH (21:23)
[2020-06-13] MEDS: metFORMIN 500 MG (GLUCOPHAGE) TAB PO SCH (21:23)
[2020-06-13 23:45] VITALS: BP 93/55
[2020-06-14 03:02] VITALS: BP 121/68
[2020-06-14] MEDS: RT-ALBUTEROL INHALER HFA (VENTOLIN HFA) 18 GM IH SCH ×4 (03:33→20:54)
[2020-06-14 05:11] LABS: BASOPHILS % (AUTO) 0 % (0-10); EOSINOPHILS # (AUTO) 0.1 10^3/uL (0.0-0.3); EOSINOPHILS % (AUTO) 2 % (0-10); HEMATOCRIT 37 % (35-52); HEMOGLOBIN 12.5 g/dL (11.5-16.0); LYMPHOCYTES # (AUTO) 1.4 10^3/uL (1.0-4.0); LYMPHOCYTES % (AUTO) 17 % (12-44); MEAN CORPUSCULAR HEMOGLOBIN 30 pg (25-34); MEAN CORPUSCULAR HGB CONC 34 g/dL (32-36); MEAN CORPUSCULAR VOLUME 88 fL (80-99); MEAN PLATELET VOLUME 9.8 fL (9.0-12.2); MONOCYTES # (AUTO) 0.7 10^3/uL (0.0-1.0); MONOCYTES % (AUTO) 8 % (0-12); NEUTROPHILS # (AUTO) 5.8 10^3/uL (1.8-7.8); NEUTROPHILS % (AUTO) 72 % (42-75); PLATELET COUNT 300 10^3/uL (130-400); WHITE BLOOD COUNT 8.2 10^3/uL (4.3-11.0)
[2020-06-14 05:21] LABS: ALBUMIN 3.8 GM/DL (3.2-4.5); CHLORIDE 99 MMOL/L (98-107); POTASSIUM 3.7 MMOL/L (3.6-5.0); SODIUM 133 MMOL/L (135-145)
[2020-06-14 05:22] LABS: CALCIUM 9.3 MG/DL (8.5-10.1)
[2020-06-14 05:23] LABS: GLUCOSE 85 MG/DL (70-105)
[2020-06-14 05:24] LABS: TOTAL PROTEIN 8.1 GM/DL (6.4-8.2)
[2020-06-14 05:25] LABS: BILIRUBIN,TOTAL 0.5 MG/DL (0.1-1.0); CARBON DIOXIDE 22 MMOL/L (21-32)
[2020-06-14 05:27] LABS: ALKALINE PHOSPHATASE 70 U/L (40-136); CREATININE SERUM 0.75 MG/DL (0.60-1.30); GFR ESTIMATED > 60
[2020-06-14 05:28] LABS: BUN/CREATININE RATIO 32
[2020-06-14 05:30] LABS: ALANINE AMINOTRANSFERASE 12 U/L (0-55)
[2020-06-14] MEDS: inSUlin ASPART (NovoLOG) 1 UNIT/0.01 ML (CHARGE PER UNIT) SC SCH ×4 (05:50→20:03)
[2020-06-14 07:30] VITALS: BP 113/73
[2020-06-14] MEDS: lisINopril 40 MG (PRINIVIL) TABLET PO SCH (09:03)
[2020-06-14] MEDS: PIOGLITAZONE 30MG (ACTOS) TAB PO SCH (09:03)
[2020-06-14] MEDS: ENOXAPARIN 40 MG/0.4 ML (LOVENOX) SYR SC SCH (09:03)
[2020-06-14] MEDS: PANTOPRAZOLE 20 MG TABLET (PROTONIX) PO SCH (09:04)
[2020-06-14] MEDS: SENNA W/DOCUSATE (SENOKOT S) TABLET PO SCH ×2 (09:04→20:03)
--- NOTE | 2020-06-14 09:55 | Progress Note - Hospitalist ---
Subjective HPI/CC On Admission Date Seen by Provider: Jun 14, 2020 Time Seen by Provider: 10:00 CC: Dyspnea with COVID-19 HPI: This is a 69yoWF of [facility] who presents from [facility] with dyspnea and hypoxia and 7 days hx of COVID. Patient was placed on 2L/min and monitored closely. Home meds were started and maintained. Denies fever. Subjective/Events-last exam Pt doing much better On 4 liters of O2 weaned down successfully NO exertion at this pint but she is doing much better Labs reviewed, meds reviewed Review of Systems Pulmonary: Dyspnea, Cough Objective Exam Vital Signs Vital Signs Date Time Temp Pulse Resp B/P (MAP) Pulse Ox O2 Delivery O2 Flow Rate FiO2 06/15/20 02:18 High Flow N/C 4.00 06/14/20 23:54 36.3 70 18 93/60 (71) 100 06/14/20 14:57 36 Capillary Refill : Less Than 3 Seconds General Appearance: No Apparent Distress, WD/WN, Chronically ill Respiratory: Chest Non Tender, Lungs Clear, No Accessory Muscle Use, No Respiratory Distress, Decreased Breath Sounds Cardiovascular: Regular Rate, Rhythm, No Edema, No Gallop, No JVD, No Murmur, Normal Peripheral Pulses Neurologic/Psychiatric: Alert, Oriented x3, No Motor/Sensory Deficits, Normal Mood/Affect Results/Procedures Lab Patient resulted labs reviewed. Assessment/Plan Assessment and Plan Assess & Plan/Chief Complaint Assessment: COVID-19 PNA Hypoxia DM GERD Plan: Monitor O2 Supportive [facility] meds Lovenox 06/05/20: O2 Lovenox Monitor closely 06/13/20: Monitor O2 Supportive care 06/14/20: Wean O2 Monitor closely Critical Care Critically Ill Patient Diagnosis/Problems Diagnosis/Problems (1) Pneumonia due to COVID-19 virus Status: Acute (2) Hypoxia Status: Acute LICHA NGUYEN DO Jun 14, 2020 09:55
[2020-06-14 14:57] VITALS: BP 113/73
--- NOTE | 2020-06-14 15:47 | NUR ---
"RD ASSESSMENT PMHx: hypercholesterolemia; HTN; GERD; DM; PT INTERACTION: Note pt is currently in COVID isolation per chart review. Note all diet information for nutrition follow-up is per Tenisha COELHO or per chart review. Tenisha states current appears appears fair. Note avg PO intake <25% meals, per chart review. Tenisha states no issues with n/v/c/d that she is aware of. Note last BM was 06/14, and pt currently on bowel regimen of senna BID, per chart review. Est. kcal needs: 2930-5521 kcal | 15-18 kcal/kg Est. Pro needs: 80-100 g Pro | 0.8-1.0 g Pro/kg PES STATEMENT: Inadequate oral intake (NI-2.1) related to loss of appetite, as evidenced by chart review, and avg PO intake <25% meals. INTERVENTION: Continue with current diet order of CHO 60g/m 3snack diet. Add Glucerna to meals TID, for increased kcal intake. Provides 220 kcal and 10 g Pro per serving. Will continue to follow and reassess as pt needs, intake, and status change. Colby FORBES, MS RD LD [phone] cell"
[2020-06-14 16:37] VITALS: BP 108/63
[2020-06-14] MEDS: metFORMIN 500 MG (GLUCOPHAGE) TAB PO SCH (20:03)
[2020-06-14] MEDS: SIMvastatin 40 MG (ZOCOR) TAB PO SCH (20:03)
[2020-06-14] MEDS: VENlafaxine XR 75 MG (EFFEXOR XR) CAP PO SCH (20:03)
[2020-06-14 23:54] VITALS: BP 93/60
[2020-06-15] MEDS: RT-ALBUTEROL INHALER HFA (VENTOLIN HFA) 18 GM IH SCH ×4 (02:18→18:56)
[2020-06-15 05:55] LABS: BASOPHILS % (AUTO) 0 % (0-10); EOSINOPHILS # (AUTO) 0.2 10^3/uL (0.0-0.3); EOSINOPHILS % (AUTO) 2 % (0-10); HEMATOCRIT 38 % (35-52); HEMOGLOBIN 12.6 g/dL (11.5-16.0); LYMPHOCYTES # (AUTO) 1.3 10^3/uL (1.0-4.0); LYMPHOCYTES % (AUTO) 16 % (12-44); MEAN CORPUSCULAR HEMOGLOBIN 30 pg (25-34); MEAN CORPUSCULAR HGB CONC 33 g/dL (32-36); MEAN CORPUSCULAR VOLUME 88 fL (80-99); MEAN PLATELET VOLUME 10.7 fL (9.0-12.2); MONOCYTES # (AUTO) 0.7 10^3/uL (0.0-1.0); MONOCYTES % (AUTO) 9 % (0-12); NEUTROPHILS # (AUTO) 5.9 10^3/uL (1.8-7.8); NEUTROPHILS % (AUTO) 72 % (42-75); PLATELET COUNT 236 10^3/uL (130-400); WHITE BLOOD COUNT 8.3 10^3/uL (4.3-11.0)
[2020-06-15] MEDS: inSUlin ASPART (NovoLOG) 1 UNIT/0.01 ML (CHARGE PER UNIT) SC SCH ×4 (05:57→19:57)
[2020-06-15 06:07] LABS: ALBUMIN 3.6 GM/DL (3.2-4.5); CHLORIDE 100 MMOL/L (98-107); POTASSIUM 3.6 MMOL/L (3.6-5.0); SODIUM 132 MMOL/L (135-145)
[2020-06-15 06:09] LABS: CALCIUM 8.9 MG/DL (8.5-10.1)
[2020-06-15 06:10] LABS: GLUCOSE 100 MG/DL (70-105); TOTAL PROTEIN 7.7 GM/DL (6.4-8.2)
[2020-06-15 06:11] LABS: CARBON DIOXIDE 20 MMOL/L (21-32)
[2020-06-15 06:12] LABS: BILIRUBIN,TOTAL 0.5 MG/DL (0.1-1.0)
[2020-06-15 06:13] LABS: ALKALINE PHOSPHATASE 68 U/L (40-136); GFR ESTIMATED > 60
[2020-06-15 06:14] LABS: BUN/CREATININE RATIO 35
[2020-06-15 06:16] LABS: ALANINE AMINOTRANSFERASE 14 U/L (0-55)
[2020-06-15 08:09] VITALS: BP 120/80
[2020-06-15] MEDS: ENOXAPARIN 40 MG/0.4 ML (LOVENOX) SYR SC SCH ×2 (09:48→19:57)
[2020-06-15] MEDS: PANTOPRAZOLE 20 MG TABLET (PROTONIX) PO SCH (09:48)
[2020-06-15] MEDS: lisINopril 40 MG (PRINIVIL) TABLET PO SCH (09:48)
[2020-06-15] MEDS: PIOGLITAZONE 30MG (ACTOS) TAB PO SCH (09:48)
[2020-06-15] MEDS: SENNA W/DOCUSATE (SENOKOT S) TABLET PO SCH ×2 (09:49→19:57)
--- NOTE | 2020-06-15 10:45 | Progress Note - Hospitalist ---
Subjective HPI/CC On Admission Date Seen by Provider: Jun 15, 2020 Time Seen by Provider: 10:00 CC: Dyspnea with COVID-19 HPI: This is a 69yoWF of [place] who presents from [facility] with dyspnea and hypoxia and 7 days hx of COVID. Patient was placed on 2L/min and monitored closely. Home meds were started and maintained. Denies fever. Subjective/Events-last exam Pt remains on three liters of oxygen PT and OT will be started Lovenox maintained BID Overall much improved Review of Systems Pulmonary: Dyspnea Objective Exam Vital Signs Vital Signs Date Time Temp Pulse Resp B/P (MAP) Pulse Ox O2 Delivery O2 Flow Rate FiO2 06/16/20 02:42 High Flow N/C 3.00 06/16/20 00:42 101/61 (74) 06/16/20 00:29 35.8 72 20 93 06/14/20 14:57 36 Capillary Refill : Less Than 3 Seconds General Appearance: No Apparent Distress, WD/WN, Chronically ill Respiratory: Chest Non Tender, Lungs Clear, Normal Breath Sounds, No Accessory Muscle Use, No Respiratory Distress Cardiovascular: Regular Rate, Rhythm, No Edema, No Gallop, No JVD, No Murmur, Normal Peripheral Pulses Neurologic/Psychiatric: Alert, Oriented x3, No Motor/Sensory Deficits, Normal Mood/Affect Results/Procedures Lab Laboratory Tests 06/15/20 05:27 Patient resulted labs reviewed. Assessment/Plan Assessment and Plan Assess & Plan/Chief Complaint Assessment: COVID-19 PNA Hypoxia DM GERD Plan: Monitor O2 Supportive skilled nursing meds Lovenox 06/05/20: O2 Lovenox Monitor closely 06/13/20: Monitor O2 Supportive care 06/14/20: Wean O2 Monitor closely 06/15/20: Monitor closely Wean PT OT Lovenox Critical Care Critically Ill Patient Diagnosis/Problems Diagnosis/Problems (1) Pneumonia due to COVID-19 virus Status: Acute (2) Hypoxia Status: Acute LICHA NGUYEN DO Jun 15, 2020 10:45
--- NOTE | 2020-06-15 14:12 | NUR ---
PT DAUGHTER, FABIO UPDATED AT THIS TIME
--- NOTE | 2020-06-15 14:50 | Occupational Therapy Eval ---
OT Evaluation-General/PLF Medical Diagnosis Admission Date Jun 04, 2020 at 16:44 Medical Diagnosis: COVID+, hypoxia Onset Date: Jun 04, 2020 Therapy Diagnosis Therapy Diagnosis: weakness Height/Weight Height (Feet): 5 Height (Inches): 7.00 Weight (Pounds): 218 Weight (Ounces): 0.0 Precautions Precautions/Isolations: Contact Isolation, Droplet Isolation Referral Physician: Jayro Referral Reason: Evaluation/Treatment Medical History Pertinent Medical History: DM, GERD, HTN, Macular Degenertion Additional Medical History depression, hysterectomy Current History Presents with dyspnea & hypoxia, admitted 06/04/2020 with 7 day hx of COVID-19 Social History Home: Apartment (3rd story) Current Living Status: Alone Entry Into Home: Elevator ADL-Prior Level of Function SCALE: Activities may be completed with or without assistive devices. 5-Fqogjufjge-vrjdswf completes the activity by him/herself with no assistance from a helper. 5-Set-up or Clean-up Assistance-helper sets up or cleans up; patient completes activity. [place] assists only prior to or following the activity. 4-Supervision or Touching Assistance-helper provides verbal cues and/or touching /steadying and/or contact guard assistance as patient completes activity. Assistance may be provided throughout the activity or intermittently. 3-Partial/Moderate Assistance-helper does LESS THAN HALF the effort. [place] lifts, holds or supports trunk or limbs, but provides less than half the effort. 2-Substantial/Maximal Assistance-helper does MORE THAN HALF the effort. [place] lifts or holds trunk or limbs and provides more than half the effort. 2-Rwlkwdgcc-tcwokx does ALL the effort. Patient does none of the effort to complete the activity. Or, the assistance of 2 or more helpers is required for the patient to complete the activity. If activity was not attempted, code reason: 7-Patient Refused. 9-Not Applicable-not attempted and the patient did not perform the activity before the current illness, exacerbation or injury. 10-Not Attempted due to Environmental Limitations-(lack of equipment, weather restraints, etc.). 88-Not Attempted due to Medical Conditions or Safety Concerns. ADL PLOF Comments Pt reports living alone at [facility], independent with all ADLS and functional mobility no AD/AE. Pt has a walk in shower and a shower chair. She plans to go live with her daughter for a few days at discharge. Self Care: Independent Functional Cognition: Independent DME/Equipment: Bath Chair, Shower OT Current Status Subjective Pt seated in recliner, stating she is up independently around her room. No pain and no concerns with ADL function. Mental Status/Objective Patient Orientation: Person, Place, Time, Situation Attachments: Oxygen Current Hand Dominance: Right Upper Extremity ROM WFL, BUE shoulder flexion to approx 140 degrees, able to touch back of head with hands. Upper Extremity Coordination WFL Upper Extremity Sensation WFL Upper Extremity Strength grossly 4/5 ADL-Treatment Eating (QC): 6 On/Off Footwear (QC): 6 Toileting Hygiene (QC): 6 Other Treatments Pt seated in recliner, agreeable to OT evaluation and tx. Pt provides information about PLOF and home set up and participates in UE screen. Pt indicates she is up in room independently and able to take self to bathroom. Independent with lunch, eating all of her meal. Pt doffed/donned gripper socks at recliner without difficulty. Pt declined using the bathroom at this time and declined transferring to bed. Pt indicates she feels like she is at her PLOF and able to complete ADLS without difficulty, she declines further OT txs. OT educated pt on benefits and purpose of exercise, instructing pt to complete BUE exercises of the following: shoulder flexion, elbow flexion/extension and finger flexion/extension. Pt verbalized understanding. Post tx, pt seated in recliner, call light in reach and all needs met. Education OT Patient Education: Correct positioning, Exercise program, Modified ADL techniques, Progress toward Goal/Update tx plan, Purpose of tx/functional activities Teaching Recipient: Patient Teaching Methods: Discussion Response to Teaching: Verbalize Understanding OT Skilled Nursing Goals Skilled Nursing Goals 1=Demonstrate adherence to instructed precautions during ADL tasks. 2=Patient will verbalize/demonstrate understanding of assistive devices/modifications for ADL. 3=Patient will improve strength/tolerance for activity to enable patient to perform ADL's. OT Education/Plan Problem List/Assessment Assessment: No Skilled OT Needs ID'd Pt is currently at her PLOF, independent with all ADLS and up in room independently. Pt has no concerns with completing ADLS upon returning home, thus d/c from OT. Discharge Recommendations Plan/Recommendations: Discharge/Goals Met Treatment Plan/Plan of Care Patient would benefit from OT for education, treatment and training to promote independence in ADL's, mobility, safety and/or upper extremity function for ADL's. Plan of Care: ADL Retraining, Functional Mobility, UE Funct Exercise/Act Treatment Duration: Jun 15, 2020 Frequency: 1 time per week (eval only) Time/GCodes Start Time: 13:53 Stop Time: 14:09 Total Time Billed (hr/min): 16 Billed Treatment Time 1, ANTHONY MCCLAIN OT Jun 15, 2020 14:50
--- NOTE | 2020-06-15 15:23 | Physical Therapy Evaluation ---
PT Evaluation-General Medical Diagnosis Admission Date Jun 04, 2020 at 16:44 Medical Diagnosis: COVID+, hypoxia Onset Date: Jun 04, 2020 Therapy Diagnosis Therapy Diagnosis: impaired endurance, strength Height/Weight Height (Feet): 5 Height (Inches): 7.00 Weight (Pounds): 218 Weight (Ounces): 0.0 Precautions Precautions/Isolations: Contact Isolation, Droplet Isolation Referral Physician: Jayro Reason for Referral: Evaluation/Treatment Medical History Pertinent Medical History: DM, GERD, HTN, Macular Degenertion Additional Medical History Past Medical History Surgeries: Hysterectomy Cardiac: High Cholesterol, Hypertension Reproductive: No Sexually Transmitted Disease: Yes HIV/AIDS: No Hysterectomy Genitourinary: Kidney Stones Gastrointestinal: Gastroesophageal Reflux, Polyps Endocrine: Diabetes, Non-Insulin dep HEENT: Macular Degeneration Loss of Vision: Bilateral Hearing Impairment: Denies Psychosocial: Depression Reviewed History: Yes Social History Home: Single Level Current Living Status: Alone Entry Into Home: Elevator Prior Prior Level of Function SCALE: Activities may be completed with or without assistive devices. 3-Vchrokkwzo-ifkedkm completes the activity by him/herself with no assistance from a helper. 5-Set-up or Clean-up Assistance-helper sets up or cleans up; patient completes activity. [place] assists only prior to or following the activity. 4-Supervision or Touching Assistance-helper provides verbal cues and/or touching/steadying and/or contact guard assistance as patient completes activity. Assistance may be provided throughout the activity or intermittently. 3-Partial/Moderate Assistance-helper does LESS THAN HALF the effort. [place] lifts, holds or supports trunk or limbs, but provides less than half the effort. 2-Substantial/Maximal Assistance-helper does MORE THAN HALF the effort. [place] lifts or holds trunk or limbs and provides more than half the effort. 0-Fxjrnxuzl-jvvrxw does ALL the effort. Patient does none of the effort to complete the activity. Or, the assistance of 2 or more helpers is required for the patient to complete the activity. If activity was not attempted, code reason: 7-Patient Refused. 9-Not Applicable-not attempted and the patient did not perform the activity before the current illness, exacerbation or injury. 10-Not Attempted due to Environmental Limitations-(lack of equipment, weather restraints, etc.). 88-Not Attempted due to Medical Conditions or Safety Concerns. Bed Mobility: 6 Transfers (B,C,W/C): 6 Gait: 6 Indoor Mobility (Ambulation): Independent PT Evaluation-Current Subjective Patient in recliner pre tx, agrees to PT, has no complaints of pain. Pt/Family Goals "to go home" Objective Patient Orientation: Person, Place, Situation Attachments: Oxygen ROM/Strength ROM Lower Extremities WNL Strength Lower Extremities LLE (hip flexion 3+/5, knee flexion 5/5, knee extension5/5, dorsiflexion 3/5), RLE (hip flexion 3+/5, knee flexion 5/5, knee extension5/5, dorsiflexion 3/5) Sensory Hearing: Functional Hand Dominance: Right Sensation Right Lower Extremit: Impaired Sensation Left Lower Extremity: Impaired Transfers Sit to Stand (QC): 6 Chair/Lbc-cs-Ugivs Xfer(QC): 6 Gait Does the Patient Walk?: Yes Mode of Locomotion: Walk Anticipated Mode of Locomotion: Walk Walk 10 feet (QC): 6 Distance: 30' Gait Assistive Device: None Comments/Gait Description Patient ambulates about her room for about 30' independently but is SOB after ambulation. Patient has no LOB or unsteadiness with ambulation, she has been ambulating to the restroom by herself. Balance Sitting Static: Normal Sitting Dynamic: Normal Standing Static: Normal Standing Dynamic: Good Treatment BLE seated exercises x20 (AP, LAQ) Assessment/Needs Patient has impaired strength and endurance. Patient in recliner post tx with nurse call, phone, tray, all needs met. She ambulates independently in her room. Patient will need physical therapy to work on endurance and LE strength. Rehab Potential: Fair PT Residential Solar Sales Consultant Goals Residential Solar Sales Consultant Goals PT Residential Solar Sales Consultant Goals Time Frame: Jun 22, 2020 Roll Left & Right (QC): 6 Sit to Lying (QC): 6 Lying-Sitting on Side/Bed(QC): 6 Sit to Stand (QC): 6 Chair/Zuh-fw-Rrzae Xfer(QC): 6 Walk 10 feet (QC): 6 Walk 50ft with 2 Turns (QC): 6 Walk 150 ft (QC): 6 PT Plan Problem List Problem List: Activity Tolerance, Functional Strength, Safety, Balance, Gait, Transfer Treatment/Plan Treatment Plan: Continue Plan of Care Treatment Plan: Education, Functional Activity Justus, Functional Strength, Gait, Safety, Therapeutic Exercise, Transfers Treatment Duration: Jun 22, 2020 Frequency: 6 times per week Estimated Hrs Per Day: .25 hour per day Patient and/or Family Agrees t: Yes Safety Risks/Education Patient Education: Gait Training, Transfer Techniques, Correct Positioning, Safety Issues Teaching Recipient: Patient Teaching Methods: Demonstration, Discussion Response to Teaching: Reinforcement Needed Discharge Recommendations Plan Patient will perform bed mobility and transfer training, balance and endurance training, functional strengthening, stair training, gait training, and education, to improve functional mobility and independence at home. Therapy Discharge Recommendati: Home & Family Time/GCodes Time In: 1438 Time Out: 1448 Total Billed Treatment Time: 10 Total Billed Treatment 1 visit EVL 10' ORA SAENZ PT Jun 15, 2020 15:23
[2020-06-15 16:16] VITALS: BP 116/76
[2020-06-15] MEDS: ACETAMINOPHEN 325 MG TABLET PO PRN (17:17)
[2020-06-15] MEDS: VENlafaxine XR 75 MG (EFFEXOR XR) CAP PO SCH (19:57)
[2020-06-15] MEDS: SIMvastatin 40 MG (ZOCOR) TAB PO SCH (19:57)
[2020-06-15] MEDS: metFORMIN 500 MG (GLUCOPHAGE) TAB PO SCH (19:57)
[2020-06-16 00:29] VITALS: BP 85/51
[2020-06-16 00:42] VITALS: BP 101/61
[2020-06-16] MEDS: RT-ALBUTEROL INHALER HFA (VENTOLIN HFA) 18 GM IH SCH ×4 (02:42→20:10)
[2020-06-16] MEDS: inSUlin ASPART (NovoLOG) 1 UNIT/0.01 ML (CHARGE PER UNIT) SC SCH ×4 (06:12→20:39)
[2020-06-16] MEDS: ENOXAPARIN 40 MG/0.4 ML (LOVENOX) SYR SC SCH ×2 (08:29→19:50)
[2020-06-16] MEDS: PIOGLITAZONE 30MG (ACTOS) TAB PO SCH (08:30)
[2020-06-16] MEDS: PANTOPRAZOLE 20 MG TABLET (PROTONIX) PO SCH (08:30)
[2020-06-16] MEDS: SENNA W/DOCUSATE (SENOKOT S) TABLET PO SCH ×2 (08:30→19:50)
[2020-06-16] MEDS: lisINopril 40 MG (PRINIVIL) TABLET PO SCH (08:30)
[2020-06-16 08:32] VITALS: BP 93/57
--- NOTE | 2020-06-16 11:23 | NUR ---
IRF Evaluation Determination: Denied Chart review complete and it appears patient is ambulating (30ft, no AD), transferring, and completing kfx-ma-fplyy with independence; therefore, the patient does not require a multidisciplinary approach to rehabilitation. Thank you for this referral.
--- NOTE | 2020-06-16 11:59 | Progress Note - Hospitalist ---
Subjective HPI/CC On Admission Date Seen by Provider: Jun 16, 2020 Time Seen by Provider: 12:00 CC: Dyspnea with COVID-19 HPI: This is a 69yoWF of [facility] who presents from [facility] with dyspnea and hypoxia and 7 days hx of COVID. Patient was placed on 2L/min and monitored closely. Home meds were started and maintained. Denies fever. Subjective/Events-last exam Pt doing much better Set for discharge tomorrow Actively walking around in the room sometimes Will likely need oxygen at discharge Review of Systems General: Fatigue, Malaise Pulmonary: Dyspnea Objective Exam Vital Signs Vital Signs Date Time Temp Pulse Resp B/P (MAP) Pulse Ox O2 Delivery O2 Flow Rate FiO2 06/17/20 02:38 93 High Flow N/C 2.00 06/17/20 00:00 36.4 78 21 101/58 (72) 06/14/20 14:57 36 Capillary Refill : Less Than 3 SecondsLess Than 3 Seconds General Appearance: No Apparent Distress, WD/WN, Chronically ill Respiratory: Chest Non Tender, Lungs Clear, Normal Breath Sounds, No Accessory Muscle Use, No Respiratory Distress Cardiovascular: Regular Rate, Rhythm, No Edema, No Gallop, No JVD, No Murmur, Normal Peripheral Pulses Neurologic/Psychiatric: Alert, Oriented x3, No Motor/Sensory Deficits, Normal Mood/Affect Results/Procedures Lab Patient resulted labs reviewed. Assessment/Plan Assessment and Plan Assess & Plan/Chief Complaint Assessment: COVID-19 PNA Hypoxia DM GERD Plan: Monitor O2 Supportive longterm meds Lovenox 06/05/20: O2 Lovenox Monitor closely 06/13/20: Monitor O2 Supportive care 06/14/20: Wean O2 Monitor closely 06/15/20: Monitor closely Wean PT OT Lovenox 06/16/20: DC tomorrow? Home O2 eval Critical Care Critically Ill Patient Diagnosis/Problems Diagnosis/Problems (1) Pneumonia due to COVID-19 virus Status: Acute (2) Hypoxia Status: Acute LICHA NGUYEN DO Jun 16, 2020 11:59
--- NOTE | 2020-06-16 13:57 | Physical Therapy Daily Note ---
PT Daily Note-Current Subjective Patient in bed pre tx, agrees to PT, has no complaints of pain. Appearance Patient sitting EOB post tx to eat lunch, has nurse call, phone, tray, all needs met. Mental Status Patient Orientation: Person, Place, Situation Attachments: Oxygen Transfers SCALE: Activities may be completed with or without assistive devices. 1-Rqakxhirfm-upjknlj completes the activity by him/herself with no assistance from a helper. 5-Set-up or Clean-up Assistance-helper sets up or cleans up; patient completes activity. [place] assists only prior to or following the activity. 4-Supervision or Touching Assistance-helper provides verbal cues and/or touching/steadying and/or contact guard assistance as patient completes activity. Assistance may be provided throughout the activity or intermittently. 3-Partial/Moderate Assistance-helper does LESS THAN HALF the effort. [place] lifts, holds or supports trunk or limbs, but provides less than half the effort. 2-Substantial/Maximal Assistance-helper does MORE THAN HALF the effort. [place] lifts or holds trunk or limbs and provides more than half the effort. 9-Rvzxqguua-stgvzn does ALL the effort. Patient does none of the effort to complete the activity. Or, the assistance of 2 or more helpers is required for the patient to complete the activity. If activity was not attempted, code reason: 7-Patient Refused. 9-Not Applicable-not attempted and the patient did not perform the activity before the current illness, exacerbation or injury. 10-Not Attempted due to Environmental Limitations-(lack of equipment, weather restraints, etc.). 88-Not Attempted due to Medical Conditions or Safety Concerns. Roll Left & Right (QC): 6 Lying to Sitting/Side of Bed(Q: 6 Sit to Stand (QC): 6 Chair/Dgh-cq-Kuszv Xfer(QC): 6 Gait Training Distance: 60' Walk 10 feet (QC): 6 Walk 50 ft with 2 Turns(QC): 6 Gait Assistive Device: None slow but steady ambulation, SOB after ambulation but recovered after about 10-15 seconds of purse lip breathing Exercises Seated Therapy Exercises: Ankle pumps, Long arc quads Seated Reps: 20 Treatments ambulation, LE exercise Assessment Current Status: Fair Progress slightly improved endurance but still gets SOB with activity PT Longterm Goals Longterm Goals PT Longterm Goals Time Frame: Jun 22, 2020 Roll Left & Right (QC): 6 Sit to Lying (QC): 6 Lying-Sitting on Side/Bed(QC): 6 Sit to Stand (QC): 6 Chair/Azj-fs-Npdpb Xfer(QC): 6 Walk 10 feet (QC): 6 Walk 50ft with 2 Turns (QC): 6 Walk 150 ft (QC): 6 PT Plan Problem List Problem List: Activity Tolerance, Functional Strength, Safety, Balance, Gait, T ransfer Treatment/Plan Treatment Plan: Continue Plan of Care Treatment Plan: Education, Functional Activity Justus, Functional Strength, Gait, Safety, Therapeutic Exercise, Transfers Treatment Duration: Jun 22, 2020 Frequency: 6 times per week Estimated Hrs Per Day: .25 hour per day Patient and/or Family Agrees t: Yes Safety Risks/Education Patient Education: Gait Training, Transfer Techniques, Correct Positioning, Safety Issues Teaching Recipient: Patient Teaching Methods: Demonstration, Discussion Response to Teaching: Reinforcement Needed Time/GCodes Time In: 1338 Time Out: 1349 Total Billed Treatment Time: 11 Total Billed Treatment 1 visit GT 11' ORA SAENZ PT Jun 16, 2020 13:57
[2020-06-16 15:54] VITALS: BP 114/56
[2020-06-16] MEDS: VENlafaxine XR 75 MG (EFFEXOR XR) CAP PO SCH (19:50)
[2020-06-16] MEDS: metFORMIN 500 MG (GLUCOPHAGE) TAB PO SCH (19:50)
[2020-06-16] MEDS: SIMvastatin 40 MG (ZOCOR) TAB PO SCH (19:50)
[2020-06-17] VITALS: BP 101/58
[2020-06-17] MEDS: RT-ALBUTEROL INHALER HFA (VENTOLIN HFA) 18 GM IH SCH ×2 (02:38→07:36)
[2020-06-17] MEDS: inSUlin ASPART (NovoLOG) 1 UNIT/0.01 ML (CHARGE PER UNIT) SC SCH ×2 (05:58→11:47)
[2020-06-17 06:38] LABS: BASOPHILS % (AUTO) 0 % (0-10); EOSINOPHILS # (AUTO) 0.2 10^3/uL (0.0-0.3); EOSINOPHILS % (AUTO) 2 % (0-10); HEMATOCRIT 35 % (35-52); HEMOGLOBIN 11.6 g/dL (11.5-16.0); LYMPHOCYTES # (AUTO) 1.7 10^3/uL (1.0-4.0); LYMPHOCYTES % (AUTO) 21 % (12-44); MEAN CORPUSCULAR HEMOGLOBIN 30 pg (25-34); MEAN CORPUSCULAR HGB CONC 33 g/dL (32-36); MEAN CORPUSCULAR VOLUME 89 fL (80-99); MONOCYTES # (AUTO) 0.6 10^3/uL (0.0-1.0); MONOCYTES % (AUTO) 7 % (0-12); NEUTROPHILS # (AUTO) 5.8 10^3/uL (1.8-7.8); NEUTROPHILS % (AUTO) 69 % (42-75); PLATELET COUNT 262 10^3/uL (130-400); WHITE BLOOD COUNT 8.3 10^3/uL (4.3-11.0)
[2020-06-17 07:09] LABS: ALBUMIN 3.5 GM/DL (3.2-4.5); CHLORIDE 102 MMOL/L (98-107); POTASSIUM 4.3 MMOL/L (3.6-5.0); SODIUM 133 MMOL/L (135-145)
[2020-06-17 07:12] LABS: GLUCOSE 114 MG/DL (70-105); TOTAL PROTEIN 7.4 GM/DL (6.4-8.2)
[2020-06-17 07:13] LABS: CARBON DIOXIDE 20 MMOL/L (21-32)
[2020-06-17 07:14] LABS: BILIRUBIN,TOTAL 0.5 MG/DL (0.1-1.0)
[2020-06-17 07:15] LABS: ALKALINE PHOSPHATASE 69 U/L (40-136); CREATININE SERUM 0.77 MG/DL (0.60-1.30); GFR ESTIMATED > 60
[2020-06-17 07:16] LABS: BUN/CREATININE RATIO 32
[2020-06-17 07:18] LABS: ALANINE AMINOTRANSFERASE 13 U/L (0-55)
--- NOTE | 2020-06-17 07:39 | NUR ---
PT WAS PUT ON ROOM AIR FOR 3 MINUTES. PT DESATURATED TO 88%. PT WAS THEN PLACED ON 1L. PT CAME UP TO 93%. PT WILL NEED 1L CONTINUOUSLY. Addendum: 06/17/20 at 0739 by TANYA ALVES RT Amended: Links added.
[2020-06-17 08:01] VITALS: BP 100/55
[2020-06-17] MEDS: lisINopril 40 MG (PRINIVIL) TABLET PO SCH (08:08)
[2020-06-17] MEDS: PIOGLITAZONE 30MG (ACTOS) TAB PO SCH (08:08)
[2020-06-17] MEDS: PANTOPRAZOLE 20 MG TABLET (PROTONIX) PO SCH (08:08)
[2020-06-17] MEDS: SENNA W/DOCUSATE (SENOKOT S) TABLET PO SCH (08:08)
[2020-06-17] MEDS: ENOXAPARIN 40 MG/0.4 ML (LOVENOX) SYR SC SCH (08:08)
--- NOTE | 2020-06-17 11:36 | NUR ---
CM/SS visited with the patient for discharge planning. Plan: The patient is discharging today 06/17 to home, self care with a new oxygen need. DME: The patient was provided with a patient choice list. She chose [id number] [place]. CM/SS contacted the agency and spoke with Martha. CM/SS faxed face sheet, script, home o2 study, and insurance. The patient reports that she is going to stay with her daughter after she leaves the hospital and feels "great" about going home. She states she is back to her baseline physically and does not have any further needs or questions at this time. No further need.
[2020-06-17] MEDS ORDERED: ALPR.25T PO (11:51)
[2020-06-17] MEDS ORDERED: ALBU18HF2 IH (11:51)
[2020-06-17] MEDS ORDERED: GUAI473L29 PO (11:51)
--- NOTE | 2020-06-17 11:52 | Discharge Summary ---
Discharge Summary Hospital Course Was the Problem List Reviewed?: Yes Problems/Dx: (1) Pneumonia due to COVID-19 virus Status: Acute (2) Hypoxia Status: Acute Hospital Course Date of Admission: Jun 04, 2020 at 16:44 Admission Diagnosis : Family Physician/Provider: Monica De Date of Discharge: 06/17/20 Discharge Diagnosis: COVID-19 PNA, hypoxia Hospital Course: Lengthy course after admitted for COVID-19 PNA. Patient required lengthy and slow wean of O2 while inpatient and close monitoring for resp failure. Overall she was able to DC in improved condition after no significant decompensation and was DC on 1L/min O2. Labs and Pending Lab Test: Laboratory Tests 06/16/20 17:46: Glucometer 96 06/16/20 20:35: Glucometer 145H 06/17/20 05:54: Glucometer 112H 06/17/20 06:27: White Blood Count 8.3, Red Blood Count 3.93, Hemoglobin 11.6, Hematocrit 35, Mean Corpuscular Volume 89, Mean Corpuscular Hemoglobin 30, Mean Corpuscular Hemoglobin Concent 33, Red Cell Distribution Width 12.7, Platelet Count 262, Mean Platelet Volume 10.0, Immature Granulocyte % (Auto) 1, Neutrophils (%) (Auto) 69, Lymphocytes (%) (Auto) 21, Monocytes (%) (Auto) 7, Eosinophils (%) (Auto) 2, Basophils (%) (Auto) 0, Neutrophils # (Auto) 5.8, Lymphocytes # (Auto) 1.7, Monocytes # (Auto) 0.6, Eosinophils # (Auto) 0.2, Basophils # (Auto) 0.0, Immature Granulocyte # (Auto) 0.1, Sodium Level 133L, Potassium Level 4.3, Chloride Level 102, Carbon Dioxide Level 20L, Anion Gap 11, Blood Urea Nitrogen 25H, Creatinine 0.77, Estimat Glomerular Filtration Rate > 60, BUN/Creatinine Ratio 32, Glucose Level 114H, Calcium Level 9.0, Corrected Calcium 9.4, Total Bilirubin 0.5, Aspartate Amino Transf (AST/SGOT) 13, Alanine Aminotransferase (ALT/SGPT) 13, Alkaline Phosphatase 69, Total Protein 7.4, Albumin 3.5 06/17/20 11:37: Glucometer 124H Home Meds Active Ventolin Hfa (Albuterol Sulfate) 18 Gm Hfa.aer.ad 0 Gm IH RTQ6HR Reported Ibuprofen 200 Mg Tablet 600 Mg PO Q6H PRN Desvenlafaxine ER (Desvenlafaxine) 100 Mg Tab.er.24h 100 Mg PO DAILY Simvastatin 40 Mg Tablet 40 Mg PO DAILY Tramadol HCl 50 Mg Tablet 50 Mg PO TID PRN Actos (Pioglitazone HCl) 30 Mg Tablet 30 Mg PO DAILY Metformin HCl 500 Mg Tablet 1,000 Mg PO HS TAKES 2 (500MG) TABLETS Omeprazole 20 Mg Tablet.dr 20 Mg PO DAILY Lisinopril 40 Mg Tablet 40 Mg PO DAILY Assessment/Pt Instructions [facility] 1 week Discharge Planning: <30 minutes discharge planning Discharge Physical Examination Vital Signs Vital Signs Date Time Temp Pulse Resp B/P (MAP) Pulse Ox O2 Delivery O2 Flow Rate FiO2 06/17/20 08:01 36.7 78 20 100/55 (70) 96 Nasal Cannula 1.00 06/14/20 14:57 36 General Appearance: No Apparent Distress, WD/WN, Chronically ill Respiratory: Chest Non Tender, Lungs Clear, Normal Breath Sounds, No Accessory Muscle Use, No Respiratory Distress Cardiovascular: Regular Rate, Rhythm, No Edema, No Gallop, No JVD, No Murmur, Normal Peripheral Pulses Neurologic/Psychiatric: Alert, Oriented x3, No Motor/Sensory Deficits, Normal Mood/Affect Allergies: Coded Allergies: No Known Drug Allergies (Verified , 11/27/16) Discharge Summary Date of Admission Jun 04, 2020 at 16:44 Date of Discharge Discharge Date: Jun 17, 2020 Admission Diagnosis Assessment: COVID-19 PNA Hypoxia DM GERD Plan: Monitor O2 Supportive shelter meds Lovenox Discharge Diagnosis Assessment: COVID-19 PNA Hypoxia DM GERD Plan: Monitor O2 Supportive shelter meds Lovenox 06/05/20: O2 Lovenox Monitor closely 06/13/20: Monitor O2 Supportive care 06/14/20: Wean O2 Monitor closely 06/15/20: Monitor closely Wean PT OT Lovenox 06/16/20: DC tomorrow? Home O2 eval (1) Pneumonia due to COVID-19 virus Status: Acute (2) Hypoxia Status: Acute LICHA NGUYEN DO Jun 17, 2020 11:52
[2020-06-17 13:42] VITALS: BP 103/64
== END 2020-06-17 14:15 | disposition home or self-care (01) | DRG 177 ==
LOC: EDUNIT# 12:42 → ER FS 12:45 → 4TH 16:44
PROVIDERS: ADMIT Internal Medicine; ATTEND Internal Medicine
DX: U07.1 COVID-19 (principal); J96.01 Acute respiratory failure with hypoxia; J12.82 Pneumonia due to coronavirus disease 2019; E11.9 Type 2 diabetes mellitus without complications; K21.9 Gastro-esophageal reflux disease without esophagitis; E78.00 Pure hypercholesterolemia, unspecified; I10 Essential (primary) hypertension; H35.30 Unspecified macular degeneration; F32.9 Major depressive disorder, single episode, unspecified; Z73.0 Burn-out
CPT/HCPCS: 36415; 71045; 80048; 80053; 82805; 82962; 83605; 84145; 85025; 86141; 94640; 94760; 94761; 96372; 96374; 96375

== ENCOUNTER → 2020-07-01 | Outpatient (CLI) | payer MEDICARE, MEDICAID ==
[~2020-07-01] MED LIST changes: +ALBU18HF2 IH; +ALPR.25T PO; +CATHETER FLUSH 10 ML SYR IV PRN; +DESV100T6 PO; +GUAI473L29 PO; +HOLD METFORMIN - RECEIVED CONTRAST 20 ML VIAL IV SCH; +IBUP-2473 PO; +IOHEXOL 350 MG/ML 100 ML (OMNIPAQUE 350) VIAL IV ONE; -LISI40TA PO; +LISI40TA9 PO; +NS 100 ML (IVPB) BAG IV ONE; +SERT-414 PO; -SERT100T8 PO; +SIMV40TA25 PO
[2020-07-01 15:07] LABS: ALBUMIN 4.3 GM/DL (3.2-4.5)
[2020-07-01 15:08] LABS: POTASSIUM 4.4 MMOL/L (3.6-5.0)
[2020-07-01 15:09] LABS: CALCIUM 9.7 MG/DL (8.5-10.1)
[2020-07-01 15:12] LABS: BILIRUBIN,TOTAL 0.4 MG/DL (0.1-1.0)
[2020-07-01 15:14] LABS: CREATININE SERUM 1.2 MG/DL (0.60-1.30)
--- NOTE | 2020-07-01 15:54 | Diagnostic Imaging Report ---
PROCEDURE: CT angiography of the chest with contrast. TECHNIQUE: Multiple contiguous axial images were obtained through the chest after uneventful bolus administration of intravenous contrast. 3D reconstructed CTA MIP acquisitions were also performed. Auto Exposure Controls were utilized during the CT exam to meet ALARA standards for radiation dose reduction. INDICATION: Covid, shortness of air. FINDINGS: There are no intraluminal pulmonary arterial filling defects there were no findings of pulmonary arterial embolus. Thoracic aorta is patent and nonaneurysmal. There is no pleural or pericardial effusion. There are 5 lobed patchy ground-glassed infiltrates and areas of septal thickening. While nonspecific the appearance is consistent with sequelae of Covid. No pneumothorax. No mass or lymphadenopathy. IMPRESSION: 5 lobed ground-glassed infiltrates compatible with Covid. Negative for PE or acute aortic disease. Dictated by: Dictated on workstation # [id number]
== END ==
LOC: RAD 14:43
PROVIDERS: ATTEND Nurse Practitioner Family
DX: R91.8 Other nonspecific abnormal finding of lung field (principal); Z86.16 Personal history of COVID-19
CPT/HCPCS: 36415; 71275; 80053

== ENCOUNTER → 2021-01-24 | Outpatient (CLI) | payer MEDICARE, MEDICAID ==
[~2021-01-24] MED LIST changes: -CATHETER FLUSH 10 ML SYR IV PRN; +GFCD10B PO; -GUAI473L29 PO; -HOLD METFORMIN - RECEIVED CONTRAST 20 ML VIAL IV SCH; -IOHEXOL 350 MG/ML 100 ML (OMNIPAQUE 350) VIAL IV ONE; -NS 100 ML (IVPB) BAG IV ONE
== END ==
LOC: LAB FS 10:30
PROVIDERS: ATTEND Nurse Practitioner Family
DX: Z01.812 Encounter for preprocedural laboratory examination (principal); G47.10 Hypersomnia, unspecified; I10 Essential (primary) hypertension; B94.8 Sequelae of other specified infectious and parasitic diseases; Z99.81 Dependence on supplemental oxygen; Z20.822 Contact with and (suspected) exposure to COVID-19
CPT/HCPCS: 87636

== ENCOUNTER → 2021-02-28 | Outpatient (CLI) | payer MEDICARE, MEDICAID | LOC: LAB FS 10:11 | PROVIDERS: ATTEND Nurse Practitioner Family | DX: Z01.812 Encounter for preprocedural laboratory examination (principal); G47.10 Hypersomnia, unspecified; I10 Essential (primary) hypertension; Z99.81 Dependence on supplemental oxygen; Z20.822 Contact with and (suspected) exposure to COVID-19 | CPT/HCPCS: 87635 ==

== ENCOUNTER 2021-09-01 20:37 | Outpatient (CLI) | payer MEDICARE, MEDICAID ==
[~2021-09-01 20:37] MED LIST changes: +CYCL10TA25 PO; -CYCL10TA9 PO
== END 2021-09-02 06:24 | disposition home or self-care (01) ==
LOC: SLEEP 20:37
PROVIDERS: ATTEND Nurse Practitioner Family
DX: G47.33 Obstructive sleep apnea (adult) (pediatric) (principal); G47.10 Hypersomnia, unspecified; I10 Essential (primary) hypertension
CPT/HCPCS: 95811

== ENCOUNTER 2021-10-05 07:38 | Outpatient (CLI) | payer MEDICARE, MEDICAID ==
[~2021-10-05] VITALS: Ht 167.6 cm; Wt 91.6 kg
[~2021-10-05 07:38] MED LIST changes: +OMEP20TA56 PO; -OMEP20TA7 PO
== END 2021-10-06 11:32 | disposition home or self-care (01) ==
LOC: PREOP 07:38
PROVIDERS: ATTEND Internal Medicine
DX: Z01.818 Encounter for other preprocedural examination (principal)

== ENCOUNTER 2021-10-27 07:34 | Day surgery (SDC) | payer MEDICARE, MEDICAID ==
--- NOTE | 2021-10-05 12:12 | HISTORY AND PHYSICAL ---
DATE OF SERVICE: COLONOSCOPY HISTORY AND PHYSICAL HISTORY OF PRESENT ILLNESS: The patient is a 71-year-old white female referred for colonoscopy due to past history of colon polyps. I first performed colonoscopy on her in 2010, at which time she had a sessile tubulovillous adenoma removed from the rectosigmoid junction. A year later colonoscopy revealed no evidence for recurrence. She has had multiple other tubular adenomas removed, although on her last colonoscopy, no polyps were noted. Her last colonoscopy in 2017. No polyps were noted. She is here for surveillance colonoscopy. She reports no bowel habit change. She has noted no bright red blood per rectum, melena or abdominal pain. PAST MEDICAL HISTORY: Significant for hypertension, depression, gastroesophageal reflux, has been under good control and disability secondary to chronic foot pains felt to be osteoarthritis in etiology. She was admitted with COVID pneumonia requiring high flow oxygen and 2 weeks of hospitalization, but did not undergo mechanical ventilation one year ago. She thinks that she is about back to baseline. She is noted to have obstructive sleep apnea at that time and was started on CPAP that she is tolerating well. She also has a history of type 2 diabetes without reported diabetic complication. SOCIAL HISTORY: She reports no past smoking history or significant drinking history, disabled secondary to osteoarthritis of the feet. FAMILY HISTORY: She has had one grandmother with at least colon polyps, possibly colon cancer. She is not aware of any other family history for colon or GI tract related pathology. Father of lung cancer, felt to be smoking related age of 63. Mother in her 90s, had cervical cancer, but did not pass away from this, felt to be more natural causes. PHYSICAL EXAMINATION: GENERAL: Reveals a white female appeared to be in no acute distress. VITAL SIGNS: Weight 202 pounds, down 15 pounds from 5 years ago. Blood pressure 152/84. HEENT: Unremarkable. Sclerae nonicteric. CHEST: Revealed a few dry sounding basilar rales, otherwise clear. CARDIOVASCULAR: Revealed a regular rate and rhythm, soft 1 to 2/6 systolic ejection murmur heard best at the left lower sternal border without S3 or S4. ABDOMEN: Soft, supple without mass or organomegaly. No tenderness noted. EXTREMITIES: Reveal no cyanosis, clubbing or edema. ASSESSMENT: The patient is being set up for surveillance colonoscopy due to past history of tubulovillous adenoma removed from the rectosigmoid junction as well as other smaller tubulovillous adenomas. Prep instructions were given, and questions were answered. She was advised to abstain from aspirin in the interim, she normally takes a baby aspirin daily. Job ID: [id number] DocumentID: [id number] Dictated Date: 10/05/2021 09:58:10 Terminal Supervisor Date: 10/05/2021 10:41:14 Dictated By: RUSS MENON MD
--- NOTE | 2021-10-13 08:44 | Pre-Op Note & Conscious Sedat ---
Pre-Operative Progress Note H&P Reviewed The H&P was reviewed, patient examined and no changes noted. Date H&P Reviewed: October 13, 2021 Time H&P Reviewed: 08:43 Conscious Sedation Pre-Proced ASA Score 3 For ASA 3 and 4: Consider anesthesia and medical clearance. Also, for patients with a history of failed moderate sedation consider anesthesia. Airway Lungs Heart ASA score ASA 1: a normal healthy patient ASA 2: a patient with a mild systemic disease (mid diabetes, controlled hypertension, obesity ASA 3: a patient with a severe systemic disease that limits activity (angina, COPD, prior Myocardial infarction) ASA 4: a patient with an incapacitating disease that is a constant threat to life (CHF, renal failure) ASA 5: a moribund patient not expected to survive 24 hrs. (ruptured aneurysm) ASA 6: a declared brain- patient whose organs are being harvested. For emergent operations, add the letter E after the classification Mallampati Classification Grade 3 Sedation Plan Analgesia, Amnesia, Plan communicated to team members, Discussed options with patient/fam, Discussed risks with patient/fam The patient is an appropriate candidate to undergo the planned procedure, sedation, and anesthesia. The patient immediately re-assessed prior to indication. RUSS MENON MD October 13, 2021 08:44
[~2021-10-27] VITALS: Ht 167 cm; Wt 99.7 kg
[~2021-10-27 07:34] MED LIST changes: +HYDR-4085 PO; -HYDR-87 PO
[2021-10-27] MEDS ORDERED: LACTATED RINGERS 1,000 ML IV STA (07:37)
[2021-10-27 07:55] VITALS: BP 115/74
--- NOTE | 2021-10-27 08:01 | Pre-Op Note & Conscious Sedat ---
Pre-Operative Progress Note H&P Reviewed The H&P was reviewed, patient examined and no changes noted. Date H&P Reviewed: Oct 27, 2021 Time H&P Reviewed: 08:01 Conscious Sedation Pre-Proced Time 08:43 ASA Score 2 For ASA 3 and 4: Consider anesthesia and medical clearance. Also, for patients with a history of failed moderate sedation consider anesthesia. Airway Lungs Heart ASA score ASA 1: a normal healthy patient ASA 2: a patient with a mild systemic disease (mid diabetes, controlled hypertension, obesity ASA 3: a patient with a severe systemic disease that limits activity (angina, COPD, prior Myocardial infarction) ASA 4: a patient with an incapacitating disease that is a constant threat to life (CHF, renal failure) ASA 5: a moribund patient not expected to survive 24 hrs. (ruptured aneurysm) ASA 6: a declared brain- patient whose organs are being harvested. For emergent operations, add the letter E after the classification Mallampati Classification Grade 3 Sedation Plan Analgesia, Amnesia, Plan communicated to team members, Discussed options with patient/fam, Discussed risks with patient/fam The patient is an appropriate candidate to undergo the planned procedure, sedation, and anesthesia. The patient immediately re-assessed prior to indication. RUSS MENON MD Oct 27, 2021 08:01
[2021-10-27] MEDS ORDERED: ASPI-999 PO (08:13)
[2021-10-27] MEDS ORDERED: CYAN250014 PO (08:13)
[2021-10-27] MEDS ORDERED: SEMA0.25 SQ (08:13)
[2021-10-27] MEDS ORDERED: MV-M-6 PO (08:13)
[2021-10-27] MEDS ORDERED: DAPA1TAB5 PO (08:13)
[2021-10-27] MEDS ORDERED: PROPOFOL INJECTION 50 ML IV ONE (08:27)
[2021-10-27 09:00] VITALS: BP 154/86
[2021-10-27 09:05] VITALS: BP 139/74
[2021-10-27 09:25] VITALS: BP 140/79
--- NOTE | 2021-10-27 09:48 | Anesthesia-General Post-Op ---
MAC Patient Condition Mental Status/LOC: Same as Preop Cardiovascular: Satisfactory Nausea/Vomiting: Absent Respiratory: Satisfactory Pain: Controlled Complications: Absent Post Op Complications Complications None Follow Up Care/Instructions Patient Instructions None needed. Anesthesiology Discharge Order Discharge Order Patient is doing well, no complaints, stable vital signs, no apparent adverse anesthesia problems. No complications reported per nursing. ABDIAS ETIENNE CRNA Oct 27, 2021 09:48
[2021-10-27 10:14] VITALS: BP 140/79
--- NOTE | 2021-10-30 10:09 | OPERATIVE REPORT ---
DATE OF SERVICE: COLONOSCOPY SUMMARY INDICATION FOR THE PROCEDURE: Surveillance colonoscopy, history of colon polyps. DESCRIPTION OF PROCEDURE: The patient was placed in the left lateral decubitus position. Prior to undergoing colonoscopy, a digital rectal evaluation was performed. Anal sphincter tone was normal and the perianal reflex is intact. No abnormalities were noted on digital inspection of anal canal or distal rectal vault. The colonoscope was then inserted into the rectum and under direct visualization advanced to the cecum. The cecum was identified by identification of the esophagus and the cecal strap. Photographic documentation was obtained. Careful inspection was made as colonoscope was withdrawn. The quality of the prep was good. FINDINGS: There was no evidence for external hemorrhoids. One grade II internal hemorrhoid complex was noted, nonthrombosed. The rectum was otherwise unremarkable. There was a segment of the mid sigmoid colon, difficult to evaluate secondary to what appears to be extrinsic adhesions. No internal luminal abnormalities were noted. There was no evidence for any diverticulum in the area and no inflammatory change or stricture formation was noted. The sigmoid colon was otherwise unremarkable. The descending colon and splenic flexure were unremarkable. Two diminutive 3 mm sessile polyps were noted, one in the distal transverse colon and one in the mid ascending colon. They were both biopsied and ablated with no subsequent blood loss. No other abnormalities were noted on colonoscopy to the cecum. ASSESSMENT: Two 3 mm sessile polyps were noted, one in the distal transverse colon and the other one in the mid ascending colon. Both biopsied and ablated with no blood loss. As long as there are no surprises on histopathology report, would advocate consideration for repeat surveillance colonoscopy in five years. The patient did have some narrowing somewhat difficult to visualize involving the mid sigmoid colon secondary to likely extrinsic adhesions as noted above. One grade II internal hemorrhoid complex was noted. Job ID: [id number] DocumentID: [id number] Dictated Date: 10/27/2021 08:58:18 Appliance Painter And Refinisher Date: 10/27/2021 14:42:04 Dictated By: RUSS MENON MD
== END 2021-10-27 10:13 | disposition home or self-care (01) ==
LOC: ENDO 07:34
PROVIDERS: ATTEND Internal Medicine
DX: Z12.11 Encounter for screening for malignant neoplasm of colon (principal); D12.2 Benign neoplasm of ascending colon; D12.3 Benign neoplasm of transverse colon; K64.1 Second degree hemorrhoids; I10 Essential (primary) hypertension; F32.A Depression, unspecified; K21.9 Gastro-esophageal reflux disease without esophagitis; M19.079 Primary osteoarthritis, unspecified ankle and foot; Z86.010 Personal history of colon polyps
CPT/HCPCS: 82947

== ENCOUNTER 2022-01-31 07:08 | Emergency (ER) | payer MEDICARE, MEDICAID ==
[~2022-01-31 07:08] MED LIST changes: +ASPI-999 PO; +CYAN250014 PO; +DAPA1TAB5 PO; +MV-M-6 PO; +SEMA0.25 SQ
--- NOTE | 2022-01-31 07:15 | ED Lower Extremity ---
General Stated Complaint: FALL; RT KNEE SWELLING History of Present Illness Date Seen by Provider: Jan 31, 2022 Time Seen by Provider: 07:15 Initial Comments 71-year-old female presents following a fall. Patient reports around 6 AM she was out walking her dog when she fell. She fell on onto concrete with her right knee. She has significant swelling and abrasion over her right knee. Patient has painful range of motion. Patient is on aspirin and no other blood thinners. Patient with no other injuries during the fall. Patient reports her last tetanus was less than a year ago Allergies and Home Medications Allergies Coded Allergies: gabapentin (Unverified Allergy, Unknown, ITCHING, 10/06/21) Patient Home Medication List Home Medication List Reviewed: Yes Aspirin (Aspirin) 81 Mg Tab.chew, 81 MG PO DAILY, (Reported) Entered as Reported by: LUIS ALDRICH on 10/27/21812 Cyanocobalamin (Vitamin B-12) (Vitamin B12) 2,500 Mcg Tab.chew, 2,500 MCG PO DAILY, (Reported) Entered as Reported by: LUIS ALDRICH on 10/27/21812 Dapagliflozin/Metformin HCl (Xigduo Xr 10 mg-1,000 mg Tab) 10 Mg-1,000 Mg Tab.bp.24h, 1 EACH PO DAILY, (Reported) Entered as Reported by: LUIS ALDRICH on 10/27/21812 Desvenlafaxine (Desvenlafaxine ER) 100 Mg Tab.er.24h, 100 MG PO DAILY, (Reported) Entered as Reported by: ADDY POPE on 06/05/20 1257 Lisinopril (Lisinopril) 40 Mg Tablet, 40 MG PO DAILY, (Reported) Entered as Reported by: OMID PATEL on 09/30/15905 Mv-Mn/Folic/Lutein/Herbal 293 (Alive Premium Women's 50 Plus) 80 Mcg-166.7 Mcg- 66.7 Mg Tab.chew, 1 EACH PO DAILY, (Reported) Entered as Reported by: LUIS ALDRICH on 10/27/21812 Omeprazole (Omeprazole) 20 Mg Tablet.dr, 20 MG PO DAILY, (Reported) Entered as Reported by: OMID PATEL on 09/30/15 09 Semaglutide (Ozempic) 0.25 Mg/0.2 Ml Pen.injctr, 0.25 MG SQ WEEK, (Reported) Entered as Reported by: LUIS ALDRICH on 10/27/21 0813 Simvastatin (Simvastatin) 40 Mg Tablet, 40 MG PO DAILY, (Reported) Entered as Reported by: ADDY POPE on 06/05/20 1256 Tramadol HCl (Tramadol HCl) 50 Mg Tablet, 50 MG PO TID PRN for ANXIETY, (Reported) Entered as Reported by: LISA CARR on 11/27/16 1415 Review of Systems Constitutional: no symptoms reported EENTM: no symptoms reported Respiratory: no symptoms reported Cardiovascular: no symptoms reported Gastrointestinal: no symptoms reported Genitourinary: no symptoms reported Musculoskeletal: see HPI Skin: see HPI Psychiatric/Neurological: No Symptoms Reported Past Eufamcs-Ccvkdj-Muoynm Hx Immunizations Up To Date Tetanus Booster (TDap): Unknown First/Initial COVID19 Vaccinat: 09/2020 Second COVID19 Vaccination Tomas: 10/2020 Third COVID19 Vaccination Date: FIRST BOOSTER 04/2021 Seasonal Allergies Seasonal Allergies: No Past Medical History Surgeries: Yes (RT OVARIAN CYSTECTOMY, CATARACTS, COLONOSCOPIES WITH POLYPECTOMIES) Hysterectomy Respiratory: Yes Chronic Bronchitis Cardiac: Yes High Cholesterol, Hypertension Neurological: No Reproductive Disorders: No TIRE FIXER History: Hysterectomy Sexually Transmitted Disease: Yes HIV/AIDS: No Genitourinary: Yes Kidney Stones Gastrointestinal: Yes Gastroesophageal Reflux, Polyps Musculoskeletal: No Endocrine: Yes Diabetes, Non-Insulin dep Macular Degeneration Loss of Vision: Bilateral Hearing Impairment: Denies Cancer: No Psychosocial: Yes Depression Integumentary: No Blood Disorders: No Adverse Reaction/Blood Tranf: No (N/A) Physical Exam Vital Signs Vital Signs - First Documented 01/31/22 07:08 Temp 36.4 Pulse 82 Resp 18 B/P (MAP) 110/62 (78) Pulse Ox 97 O2 Delivery Room Air Capillary Refill : Height, Weight, BMI Height: 5'7.00" Weight: 218lbs. 0.0oz. 98.140998ks; 35.74 BMI Method:Stated General Appearance: WD/WN, no apparent distress Neck: full range of motion, supple Cardiovascular: normal peripheral pulses, regular rate, rhythm Respiratory: lungs clear, normal breath sounds Gastrointestinal: soft Hips: bilateral hip non-tender Legs: bilateral leg non-tender Knees: right knee soft tissue tenderness, right knee swelling (Patellar) Ankles: bilateral ankle non-tender Feet: bilateral foot non-tender Neurologic/Psychiatric: alert, normal mood/affect Skin: other (Abrasion anterior right knee) Progress/Results/Core Measures Results/Orders My Orders Orders - ELIANA COLLIER DO Knee 4 View Or > Right (01/31/22 07:15) Vital Signs/I&O 01/31/22 07:08 Temp 36.4 Pulse 82 Resp 18 B/P (MAP) 110/62 (78) Pulse Ox 97 O2 Delivery Room Air Progress Progress Note : Progress Note Patient with a prepatellar hematoma/contusion. No acute fractures noted on x- ray. Will recommend David wrap and follow-up with life enrichment specialist as needed. Patient stable and discharged Diagnostic Imaging Diagonstic Imaging: Xray Plain Films/CT/US/NM/MRI: knee Comments Date of Exam:01/31/22 KNEE 4 VIEW OR > RIGHT Indication: Fall. Right knee pain. FINDINGS: 4 views. No fractures or dislocations. Articulating surfaces are smooth. Joint spaces well-maintained. There is considerable prepatellar soft tissue swelling. IMPRESSION: Swelling over the prepatellar region with no fractures demonstrated. Reviewed: Reviewed by Me, Reviewed/Discussed Departure Impression Primary Impression: Traumatic hematoma of right knee Qualified Codes: S80.01XA - Contusion of right knee, initial encounter Disposition: HOME, SELF-CARE Condition: Stable Departure-Patient Inst. Referrals: FRACISCO SHAH MD (PCP) Primary Care Physician DANDY MEJIA APRN (Family) Primary Care Physician Patient Instructions: Bursitis (DC), Contusion (DC) Add. Discharge Instructions: David wrap to affected area Ice for 20 minutes at a time 3-4 times daily Follow-up with Arturo Nelson beginning next week if symptoms or not improving or worsen Keep abrasion clean with warm soapy water with sterile bandage ELIANA COLLIER DO Jan 31, 2022 07:15
--- NOTE | 2022-01-31 07:33 | Diagnostic Imaging Report ---
Indication: Fall. Right knee pain. FINDINGS: 4 views. No fractures or dislocations. Articulating surfaces are smooth. Joint spaces well-maintained. There is considerable prepatellar soft tissue swelling. IMPRESSION: Swelling over the prepatellar region with no fractures demonstrated. Dictated by: Dictated on workstation # [id number]
[2022-01-31 07:54] VITALS: BP 110/62
== END 2022-01-31 07:57 | disposition home or self-care (01) ==
LOC: EDUNIT# 07:08 → ER FS 07:14
DX: S80.01XA Contusion of right knee, initial encounter (principal); Z79.82 Long term (current) use of aspirin; W18.30XA Fall on same level, unspecified, initial encounter; Y93.K1 Activity, walking an animal
CPT/HCPCS: 73564